=== PATIENT | female | born 1980 | race Caucasian/White ===

== ENCOUNTER 2019-05-25 10:57 | Outpatient (CLI) | payer OTHER, SELFPAY ==
[2019-05-28 01:25] LABS: CA-125 15 U/mL (<35)
== END 2019-05-25 10:58 | disposition home or self-care (01) ==
PROVIDERS: PCP Nurse Practitioner Family
DX: E66.9 Obesity, unspecified (principal)
CPT/HCPCS: 36415; 86304

== ENCOUNTER 2019-11-04 08:52 | Outpatient (CLI) | payer OTHER, SELFPAY ==
[2019-11-04 22:54] LABS: SARS-CoV-2 RNA PCR Negative
== END 2019-11-04 08:53 | disposition home or self-care (01) ==
PROVIDERS: PCP Family Medicine; Visit Provider Family Medicine
DX: Z20.828 Contact with and (suspected) exposure to other viral communicable diseases (principal)
CPT/HCPCS: 87635; C9803; U0003

== ENCOUNTER 2020-08-15 12:56 | Outpatient (CLI) | payer OTHER, SELFPAY ==
--- NOTE | ~2020-08-15 | CT_ITS ---
EXAMINATION: CT sinus wo con DATE: 08/15/2020 13:17 INDICATION: Right maxillary pain/pressure TECHNIQUE: Computed tomography (CT) of the paranasal sinuses was performed without contrast. Iterativ e reconstruction technique was employed. Exam dose: 232.36 mGy-cm total exam DLP. COMPARISON: None FINDINGS: There is prominent rightward deviation of the nasal septum. Bilateral middle nasal turbinate intralamellar cell. There is soft tissue opacification of the right maxillary ostium and infundibulum. The left ostiomeat al unit is patent. Minimal soft tissue thickening of the right frontal sinus. Left frontal sinus is patent. There is prominent soft tissue thickening of the right maxillary sinus. There is moderate mucoperiost eal thickening of the left maxillary sinus. There is soft tissue thickening of the ethmoid air cells, primarily on the right. Approximately 6 x 2 mm mucus retention cyst or polyp in the posterolateral left sphenoid sinus. The s phenoid sinuses are otherwise clear. Mastoid air cells are normally developed and aerated bilaterally. Middle and inner ear apparatus are normal bilaterally. IMPRESSION: Prominent rightward deviation of nasal septum Bilateral intralamellar cell of middle nasal turbinate Soft tissue opacification of right maxillary ostium and right infundibulum Minimal right, moderate right greater than left ethmoid and maxillary maxillary soft tissue thickenin g Focal 6 x 12 mm posterolateral left sphenoid opacity Reviewed, dictated and finalized at [facility]. Reviewed, dictated and finalized at location A. IMPRESSION: Prominent rightward deviation of nasal septum Bilateral intralamellar cell of middle nasal turbinate Soft tissue opacification of right maxillary ostium and right infundibulum Minimal right, moderate right greater than left ethmoid and maxillary maxillary soft tissue thickening Focal 6 x 12 mm posterolateral left sphenoid opacity
== END 2020-08-15 12:57 | disposition home or self-care (01) ==
LOC: CHSIMG 12:57
PROVIDERS: PCP Nurse Practitioner Family; Visit Provider Family Medicine
DX: J32.9 Chronic sinusitis, unspecified (principal)
CPT/HCPCS: 70486

== ENCOUNTER 2020-11-11 02:26 | Day surgery (SDC) | payer OTHER, SELFPAY ==
[2020-11-07 15:07] VITALS: BMI 45.6
--- NOTE | 2020-11-09 13:58 | PM.IMHP ---
H&P: HPI History of Present Illness Date/Time: 11/09/20 13:58 Chief Complaint: see diagnoses patient presents for planned surgical procedures no change in symptoms no change in medical history. Review of Systems Constitutional: Constitutional: Denies fatigue, Denies fever(s) and Denies lethargy Eyes: Eyes: Denies blurry vision and Denies change in vision ENT: Reports as per HPI Cardiovascular: Cardiovascular: Denies chest pain Respiratory: Respiratory: Denies cough Endocrine: Endocrine: Denies fatigue Hematologic/Lymphatic: Hematologic/Lymphatic: Denies easy bleeding, Denies easy bruising and Denies lymphadenopathy Allergic/Immunologic: Allergic/Immunologic: Denies seasonal rhinorrhea [facility] Past Medical History Medical History Asthma (07/01/15) Cough Depression Diarrhea CONOR (generalized anxiety disorder) GERD (gastroesophageal reflux disease) (07/01/15) Kidney calculi Maxillary sinusitis, acute Migraine Nasal congestion Nausea Tobacco dependence Surgical History Surgical History History of cholecystectomy (~12/2016) Family History Family History Father Depression Grandparent Asthma Lung cancer Grandparent Carcinoma of colon Heart disease Social History Social History Years smoked: 20 Smoking status: Current every day smoker Tobacco type: cigars Second hand tobacco smoke exposure: No Alcohol intake: current Drinks per week: 1 Alcohol use details: social Substance use: never Substance use type: does not use Living arrangements: alone 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 Gender identity (if verbalized by the patient): Female Spiritual care concerns: No Meds Home Medications and Allergies Home Medications Medication Instructions Recorded Confirmed Type norgestimate-ethinyl estradiol 1 tablet PO DAILY 01/31/19 11/07/20 History [Sprginnaec (28)] aripiprazole 5 mg tablet 7.5 mg PO DAILY 04/08/19 11/07/20 History venlafaxine 75 mg capsule,extended 225 mg PO DAILY cap 07/17/19 11/07/20 History release 24 hr zafirlukast 20 mg tablet 20 mg PO Q12H 08/18/19 11/07/20 History trazodone 100 mg tablet See Rx Instructions .ROUTE 01/19/20 11/07/20 Rx .COMPLEX #30 tablet Allergies Allergy/AdvReac Type Severity Reaction Status Date / Time divalproex sodium Allergy Intermediate Hives Verified 11/07/20 14:50 [From Depakote] nickel Allergy Intermediate Hives Verified 11/07/20 14:50 phenytoin [From Dilantin] Allergy Intermediate Hives Verified 11/07/20 14:50 tetrakis copper Allergy Intermediate Hives Verified 11/07/20 14:50 tetrafluoroborate Exam Const: General: cooperative, healthy appearing, comfortable, well developed and alert HENMT: Head: normal to inspection, normocephalic and atraumatic Ears: hearing grossly normal bilaterally, external ears normal, TM's normal bilaterally and EAC's normal General nose exam: Normal external nose present, Normal nares present, mucous membranes and turbinates abnormal, abnormal septum and Other nasal findings present ( Inferior turbinate hypertrophy septal deviation) Face and sinus: normal facial exam Mouth: Yes Normal oral and palatal mucosa present, Yes lip normal, Yes tongue normal, Yes oropharynx normal and Yes moist mucous membranes Teeth and gingiva: dentition normal and gingiva normal Throat: posterior oropharynx normal, tonsils normal and uvula midline Eyes: General: appearance normal, both eyes and all related structures Periorbital: periorbital findings normal Eyelids: eyelids normal Conjunctivae: conjunctivae normal Sclera: sclerae normal Neck: Neck: normal visual inspection, full ROM and no lymphadenopathy Thyroid: thyroid normal Lymphatic: no l
[2020-11-11] VITALS (9 sets, daily range): BP systolic 132–158; BP diastolic 78–106; PULSE 78–95; RESP 10–20; TEMP 36–36.4; O2SAT 97–100
[2020-11-11] MEDS: ACETAMINOPHEN 500 MG TABLET 1000 MG PO (07:04)
--- NOTE | 2020-11-11 07:09 | WPDHPUPDATE1 ---
History and Physical Update Update Date/Time: 11/11/20 07:09 History and Physical has been reviewed, including an updated exam of the patient. There are NO changes in the patient's condition. Risks, benefits, and alternatives have been discussed and questions answered. Patient agrees to proceed with procedure.
[2020-11-11] MEDS: LACTATED RINGERS 1,000 ML 30 ML IV CONT ×2 (07:39→10:51)
--- NOTE | 2020-11-11 07:50 | WPDANESEPPF ---
Anes - Initial Pre Proc Eval Procedure: Operation Date: 11/11/20 08:45 Proposed Procedures p Image Guided Bilateral Inferior Turbinectomy, Resection Valencia Bullosa, Right Frontal Sinusotomy, Right Total Ethmoidectomy, Left Antrostomy, Left Anterior Ethmoidectomy, Image Guided Left Sphenoidotomy - Andriy Sutton MD s Septoplasty - Andriy Sutton MD Date/Time: 11/11/20 07:50 Surgeon: Andriy Sutton MD Pre Op Diagnosis: chronic sinusitis Patient Data Age: 39 Gender: F Height: 1.7 m Weight: 131.7 kg Last Vital Signs Temp 36.4 C 11/11/20 06:41 Pulse 94 11/11/20 06:41 Resp 16 11/11/20 06:41 BP 132/78 11/11/20 06:41 Pulse Ox 100 11/11/20 06:41 Allergies Allergy/AdvReac Type Severity Reaction Status Date / Time divalproex sodium Allergy Intermediate Hives Verified 11/07/20 14:50 [From Depakote] nickel Allergy Intermediate Hives Verified 11/07/20 14:50 phenytoin [From Dilantin] Allergy Intermediate Hives Verified 11/07/20 14:50 tetrakis copper Allergy Intermediate Hives Verified 11/07/20 14:50 tetrafluoroborate Home Medications Medication Instructions Recorded Confirmed Type norgestimate-ethinyl estradiol 1 tablet PO DAILY 01/31/19 11/11/20 History [Sprintec (28)] aripiprazole 5 mg tablet 7.5 mg PO DAILY 04/08/19 11/11/20 History venlafaxine 75 mg capsule,extended 225 mg PO DAILY cap 07/17/19 11/11/20 History release 24 hr zafirlukast 20 mg tablet 20 mg PO Q12H 08/18/19 11/11/20 History trazodone 100 mg tablet See Rx Instructions .ROUTE 01/19/20 11/11/20 Rx .COMPLEX #30 tablet fluticasone propionate 1 spray INTRANASAL DAILY 11/11/20 11/11/20 History Patient hx anesthesia problems: none Family hx anesthesia problems: none PMFSH Past Medical History Medical History Asthma (07/01/15) Cough Depression Diarrhea CONOR (generalized anxiety disorder) GERD (gastroesophageal reflux disease) (07/01/15) Kidney calculi Maxillary sinusitis, acute Migraine Nasal congestion Nausea Tobacco dependence Surgical History Surgical History History of cholecystectomy (~12/2016) Family History Family History Father Depression Grandparent Asthma Lung cancer Grandparent Carcinoma of colon Heart disease Social History Social History Years smoked: 20 Smoking status: Current every day smoker Tobacco type: cigars Second hand tobacco smoke exposure: No Alcohol intake: current Drinks per week: 1 Alcohol use details: social Substance use: never Substance use type: does not use Living arrangements: alone 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 Questions were solicited and answers provided to the satisfaction of the patient/family/POA.
[2020-11-11] MEDS: ceFAZolin 3 GM/D5W 100 ML 100 ML IVPB (08:30)
[2020-11-11] MEDS: OXYMETAZOLINE HCL 0.05% NAS 15 ML BTL (*BKC) 1 SPRAY NASAL (09:08)
[2020-11-11] MEDS: fentaNYL CITRATE INJ (*CRX) 100 MCG/2 ML VIAL 25 MCG IV PUSH ×4 (10:56→11:10)
--- NOTE | 2020-11-11 11:20 | W.PM.PROC2 ---
Procedure Note - Detailed Date of Procedure 11/11/20 Pre-op Diagnosis chronic sinusitis, nasal obstruction, postnasal drip, nasal obstruction Ann Thatch, septal deviation, inferior turbinate hypertrophy, guy bullosa Post-op Diagnosis same Procedure Performed image guided bilateral maxillary antrostomy left-sided image guided anterior ethmoidectomy left-sided image guided sphenoidotomy right-sided image guided total ethmoidectomy right-sided image guided frontal sinusotomy left-sided resection of guy bullosa bilateral inferior turbinates submucosal resection with outfracture endoscopic assisted septoplasty Surgeon Andriy Sutton MD Civil Project Engineer none Anesthesia general Indications see above Findings septal deviation inferior turbinate hypertrophy minimal polypoid tissue in the affected sinuses Description of Procedure the patient was correctly identified and consent was verified in the preoperative holding area. The patient was then brought to the operating room and a time-out was performed. General anesthesia was induced and endotracheal tube was secured the patient's airway and taped to the left lower lip. Afrin-soaked pledgets were placed allowed to sit for 5 minutes in the bilateral nasal passages. Image guidance was initiated. The patient was prepped and draped for the aforementioned procedure. A 2nd time-out was performed. The Afrin-soaked pledgets removed. Local anesthetic with lidocaine excuse me lidocaine with epinephrine was injected into the head of the left middle turbinate the guy bullosa was resected with straight through cut micro debrider. Hemostasis was adequate. Double ball tip probe was placed deep to the left uncinate process and this was fractured anteriorly left-sided maxillary antrostomy was performed the using a combination of backbiter and straight through cut. Kerrison was utilized to perform the left anterior ethmoidectomy as well as with micro debrider. Sphenoid was performed transnasally not trans ethmoid. Image guidance confirmed the location the inferior 3rd of the superior turbinate on the left was resected sphenoid os located widened with a Kerrison 0 as well as 7 degree placed to examine the left sphenoid sinus given that disease was noted or least the soft tissue density lesion was noted on CT. This appeared to be scant mucus. No lesion was noted. 10 cc 1% lidocaine with 1 100,000 parts epinephrine was injected deep to the sub mucoperichondrial and sub mucoid off ostial plane of the septum. [place] type incision was made on the left. Bilateral mucoperichondrial flaps were elevated. Of note the right septal spur had a perforation following elevation. The deviated portions were made using a combination removed using a combination of Rangel forceps Dash Al forceps and osteotome. The septum was very straight following septoplasty. Right-sided sinus surgery resumed. Of note there was no guy bullosa on the right middle turbinate. Backbiter as well as double ball tip probe straight through cutter utilized to perform the right-sided maxillary antrostomy. Kerrison as well as micro debrider with image guidance for utilized to perform the right-sided total ethmoidectomy. Skull base and orbit were cleaned of partitions then located. At this point a 70 degree scope and curved suctions and curved frontal sinus instruments were utilized to perform the right-sided frontal sinusotomy. The frontal sinus was located with image guidance and opened with a combination of instruments. It was will opened widely. The bilateral inferior turbinates were then reduced. A 2 mm inferior turbinate blade was utilized to resect submucosally. They were then outfractured using a [place] elevator. Tightening based packing was placed in the bilateral middle meati eye. Of note the bilateral heads of the inferior the middle turbinates were trimmed to allow easy access into the frontal outflow tracts and middle meati I. [facility] [place]
[2020-11-11] MEDS: oxyCODONE HCL (*CRX) 5 MG TAB IR PO (12:35)
== END 2020-11-11 12:40 | disposition home or self-care (01) ==
PROVIDERS: PCP Nurse Practitioner Family; Visit Provider Otolaryngology
PROC: (CPT 31256; principal; 2020-11-11 08:45)
PROC: (CPT 30520; 2020-11-11 08:45)
DX: J34.89 Other specified disorders of nose and nasal sinuses (principal); J34.2 Deviated nasal septum; R09.82 Postnasal drip; J32.9 Chronic sinusitis, unspecified; R51.9 Headache, unspecified; R44.8 Other symptoms and signs involving general sensations and perceptions; R09.81 Nasal congestion; J45.909 Unspecified asthma, uncomplicated; F32.9 Major depressive disorder, single episode, unspecified; F41.1 Generalized anxiety disorder; F17.210 Nicotine dependence, cigarettes, uncomplicated; E66.01 Morbid (severe) obesity due to excess calories; Z68.42 Body mass index [BMI] 45.0-49.9, adult; J33.8 Other polyp of sinus
CPT/HCPCS: 31256; 61782; 30520; 30140; 31240; 31288; 31276; A9270; J0690; J1100; J2250; J2405; J2704; J3010; J7120

== ENCOUNTER 2020-12-12 16:50 | Outpatient (NON) | payer OTHER, SELFPAY | END 2020-12-12 16:51 | disposition home or self-care (01) | LOC: CHSLAB 16:51 | PROVIDERS: Visit Provider Nurse Practitioner Family | DX: R30.0 Dysuria (principal) | CPT/HCPCS: 87077; 87086; 87088; 87186 ==

== ENCOUNTER 2021-01-31 07:34 | Outpatient (CLI) | payer OTHER, SELFPAY ==
--- NOTE | ~2021-01-31 | US_ITS ---
EXAMINATION: US soft tissue abdomen INDICATION: Unspecified abdominal hernia without obstruction TECHNIQUE: Targeted high-resolution ultrasound is performed in the area of clinical concern. COMPARISON: CT, 01/31/2019 FINDINGS: There is an epigastric ventral hernia with an approximately 4.4 cm neck containing fat in t he area of clinical concern. Bowel protrudes into the hernia defect with Valsalva. No additional sono graphically detected abnormality is identified. IMPRESSION: 1. Fat-containing epigastric ventral hernia with bowel entering the hernia during Valsalva maneuver. Reviewed, dictated and finalized at location [facility]. IMPRESSION: 1. Fat-containing epigastric ventral hernia with bowel entering the hernia duri ng Valsalva maneuver.
--- NOTE | ~2021-01-31 | US_ITS ---
EXAMINATION: US renal BI DATE: 01/31/2021 08:02 INDICATION: Unspecified abdominal pain TECHNIQUE: Multiple grayscale and Doppler ultrasound images of the kidneys were obtained. COMPARISON: CT, 01/31/2019 FINDINGS: The examination is limited by the patient's body habitus. The right kidney measures 9.3 x 5 .6 x 5.3 cm. The left kidney measures 10.5 x 4.9 x 4.3 cm. There are multiple peripelvic cysts of the left kidney. The kidneys demonstrate normal parenchymal echogenicity. There is no hydronephrosis. Th e bladder is not visualized due to recent voiding. IMPRESSION: 1. Normal kidneys without hydronephrosis. Reviewed, dictated and finalized at location B.
== END 2021-01-31 07:35 | disposition home or self-care (01) ==
LOC: CHSIMG 07:34
PROVIDERS: PCP Nurse Practitioner Family; Visit Provider Nurse Practitioner Family
DX: R10.9 Unspecified abdominal pain (principal); K46.9 Unspecified abdominal hernia without obstruction or gangrene
CPT/HCPCS: 76705; 76775

== ENCOUNTER 2021-02-22 18:09 | Emergency (ER) | payer OTHER, SELFPAY ==
--- NOTE | ~2021-02-22 | XR_ITS ---
XR knee LT 3V 02/22/2021 19:27 INDICATION: Left knee pain after fall downstairs PROCEDURE: 3 views left knee COMPARISON: No prior studies for comparison. FINDINGS: Fracture, dislocation or subluxation is not identified. No significant joint effusion. The soft tissues appear within normal limits. No foreign bodies are identified. IMPRESSION: 1: NO ACUTE BONE OR JOINT ABNORMALITY IDENTIFIED. Reviewed, dictated and finalized at location A. RUPTCY PARALEGAL
[2021-02-22 18:42] VITALS: BP 157/81; PULSE 103; RESP 16; TEMP 37.1; O2SAT 97
--- NOTE | 2021-02-22 18:43 | ED.LOWEXIN ---
HPI - Extremity Injury (Lower) General Chief Complaint: Extremity Injury, Lower Stated Complaint: Lt knee injury Time Seen by Provider: 02/22/21 18:43 Source: patient Mode of arrival: ambulatory Limitations: no limitations History of Present Illness HPI Narrative: 40-year-old woman comes in today complaining of left knee pain, right ankle pain, and some mild back pain after she fell down some stairs just prior to admission. Her main complaint is pain posterior to and lateral to her left knee. She has had some limited weight-bearing. She denies any numbness or tingling. She states the pain in her back and ankle are mild and she is not worried about them. MD complaint: knee injury and leg injury Injury: Left: knee Type of Injury: blunt (Fall) Place: home Severity: moderate Relieving factors: rest Exacerbating factors: weight bearing, movement and palpation Context: fall Associated symptoms: swelling and able to partially bear weight Other symptoms: none Related Data Home Medications Medication Instructions Recorded Confirmed norgestimate-ethinyl estradiol 1 tablet PO DAILY 01/31/19 02/22/21 [Sprintec (28)] venlafaxine 75 mg capsule,extended 225 mg PO DAILY cap 07/17/19 02/22/21 release 24 hr zafirlukast 20 mg tablet 20 mg PO Q12H 08/18/19 02/13/21 fluticasone propionate 1 spray INTRANASAL DAILY 11/11/20 02/22/21 aripiprazole 15 mg PO DAILY 02/22/21 02/22/21 Allergies Allergy/AdvReac Type Severity Reaction Status Date / Time divalproex sodium Allergy Intermediate Hives Verified 02/22/21 18:37 [From Depakote] nickel Allergy Intermediate Hives Verified 02/22/21 18:37 phenytoin [From Dilantin] Allergy Intermediate Hives Verified 02/22/21 18:37 tetrakis copper Allergy Intermediate Hives Verified 02/22/21 18:37 tetrafluoroborate Review of Systems Review of Systems: All systems reviewed & are unremarkable except as noted in HPI and below Cardiovascular: Cardiovascular: Denies chest pain and Denies radiating jaw, neck or arm pain Respiratory: Respiratory: Denies cough and Denies dyspnea Gastrointestinal: Gastrointestinal: Denies nausea and Denies vomiting Musculoskeletal: Musculoskeletal: Reports as per HPI, Reports back pain, Reports arthralgias and Reports joint swelling Integumentary/Breasts: Skin/Breast: Denies pruritus and Denies rash Neurologic: Denies vertigo, Denies dizziness and Denies syncope Hematologic/Lymphatic: Hematologic/Lymphatic: Denies easy bleeding and Denies easy bruising PMFSH Past Medical History Medical History Asthma (07/01/15) Cough Depression Diarrhea CONOR (generalized anxiety disorder) GERD (gastroesophageal reflux disease) (07/01/15) Kidney calculi Maxillary sinusitis, acute Migraine Nasal congestion Nausea Tobacco dependence Surgical History Surgical History H/O sinus surgery History of cholecystectomy (~12/2016) [place] teeth extracted Family History Family History Father Depression Grandparent Asthma Lung cancer Grandparent Carcinoma of colon Heart disease Social History Social History Years smoked: 20 Smoking status: Current every day smoker Tobacco type: cigars Second hand tobacco smoke exposure: No Alcohol intake: current Drinks per week: 1 Alcohol use details: social Substance use: never Substance use type: does not use 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 Skin: General skin exam: normal color, no jaundice and no pallor Rashes
[2021-02-22] MEDS: HYDROcodone/acetaminophen (*CRX) 5-325 MG TABLET 1 TAB PO (18:55)
[2021-02-22 20:22] VITALS: BP 160/85; PULSE 91; RESP 17; O2SAT 94
== END 2021-02-22 20:23 | disposition home or self-care (01) ==
PROVIDERS: Emergency Provider Emergency Medicine; PCP Nurse Practitioner Family
DX: S83.92XA Sprain of unspecified site of left knee, initial encounter (principal); S80.12XA Contusion of left lower leg, initial encounter; W10.9XXA Fall (on) (from) unspecified stairs and steps, initial encounter
CPT/HCPCS: 73562; 99283; A9270

== ENCOUNTER 2021-02-28 07:39 | Outpatient (RCR) | payer OTHER, SELFPAY ==
--- NOTE | 2021-02-28 08:13 | PTOPEVAL ---
Thank you for referring Leticia Das to [facility].? The patient is scheduled to be seen for therapy? ____x/week for ___ weeks. Please review, sign, date and return this plan of care DEANGELO. I agree with and certify that the following plan of care is medically necessary. Referring Physician Date Admitting Provider: Attending Provider: Caitlin Mcclain NP Referring Provider: *PT Outpatient Evaluation Start: 02/28/21 07:07 Freq: Status: Active Protocol: Document 02/28/21 07:07 ACR (Rec: 02/28/21 08:12 ACR [id number]) Therapy Assessment Status Assessment Status Assessment Status Evaluation Outpatient Past Medical History Neurological History Hx Migraine Yes Hx Seizures Yes: 1997 ONE SEIZURE Cardiovascular History Hx Cardiac Disorders No Significant History Respiratory History Hx Asthma Yes Hx Bronchitis Yes Hx Pneumonia Yes Gastrointestinal History Hx Cholecystectomy Yes: GALLSTONES Hx Gastroesophageal Reflux Disease Yes Hx Pancreatitis Yes Genitourinary History Hx Kidney Stones Yes Musculoskeletal History Hx Musculoskeletal Disorders No Significant History Hematological History Hx Hematological Disorders No Significant History Endocrine History Hx Endocrine Disorders No Significant History HEENT History Hx Sinus Problems Yes Integumentary History Hx Other Skin Disorders Yes: rashes Reproductive History Hx Hormone Therapy Yes Hx Other Reproductive Disorders Yes: CARLOS SYNDROME Psychosocial History Hx Anxiety Yes Hx Depression Yes Pain History History of Any Previous or Ongoing No Significant History Instance of Pain Anesthesia History Hx Anesthesia Reactions No Significant History Evaluation Information Problem Diagnosis L knee sprain Onset 02/22/21 Subjective Information Patient reports that she was Query Text:As Reported By Patient/ going down the steps and Family twisted her ankle then fell down the stairs and twisted the knee. Patient reports that she went to the ED and got an X-ray showing no fractures and was told she has a sprained R ankle and sprained L knee. The patient reports she has been on crutches since she got hurt. Patient states that getting up from a seated position, walkin
--- NOTE | 2021-03-22 07:10 | PTOPEVAL ---
Thank you for referring Leticia Das to [facility] [place].? The patient is scheduled to be seen for therapy? ____x/week for ___ weeks. Please review, sign, date and return this plan of care DEANGELO. I agree with and certify that the following plan of care is medically necessary. Referring Physician Date Admitting Provider: Attending Provider: Caitlin Mcclain NP Referring Provider: SHEREEN Outpatient Evaluation Start: 02/28/21 07:07 Freq: Status: Active Protocol: Document 03/17/21 11:00 [facility] (Rec: 03/22/21 07:09 [facility] [id number]) Therapy Assessment Status Assessment Status Assessment Status Discharge Outpatient Past Medical History Neurological History Hx Migraine Yes Hx Seizures Yes: 1997 ONE SEIZURE Cardiovascular History Hx Cardiac Disorders No Significant History Respiratory History Hx Asthma Yes Hx Bronchitis Yes Hx Pneumonia Yes Gastrointestinal History Hx Cholecystectomy Yes: GALLSTONES Hx Gastroesophageal Reflux Disease Yes Hx Pancreatitis Yes Genitourinary History Hx Kidney Stones Yes Musculoskeletal History Hx Musculoskeletal Disorders No Significant History Hematological History Hx Hematological Disorders No Significant History Endocrine History Hx Endocrine Disorders No Significant History HEENT History Hx Sinus Problems Yes Integumentary History Hx Other Skin Disorders Yes: rashes Reproductive History Hx Hormone Therapy Yes Hx Other Reproductive Disorders Yes: CARLOS SYNDROME Psychosocial History Hx Anxiety Yes Hx Depression Yes Pain History History of Any Previous or Ongoing No Significant History Instance of Pain Anesthesia History Hx Anesthesia Reactions No Significant History Evaluation Information Problem Diagnosis L knee sprain Onset 02/22/21 Additional Evaluation Detail LEFS = 0% functional deficits Subjective Information patient reports she feels Query Text:As Reported By Patient/ Great this date. she reports Family she has no pain in the L knee. she reports she would like to end therapy is she is feeling back to normal. she reports she returns to the MD next week but is back to full work performance. Pain Assessment Timing of Pain Assessment Timing of Pain Assessment Assessment Self Report Self Report Pain Level 0 Pain Score Pain Score 0: Self Report Lower Extremity Range of Motion Knee
== END 2021-03-17 09:12 | disposition home or self-care (01) ==
LOC: CHSPT 07:39
PROVIDERS: PCP Nurse Practitioner Family; Visit Provider Nurse Practitioner Family
DX: S83.92XA Sprain of unspecified site of left knee, initial encounter (principal)
CPT/HCPCS: 97016; 97110; 97161; 97530

== ENCOUNTER 2021-04-06 10:17 | Outpatient (CLI) | payer OTHER, SELFPAY ==
[2021-04-06 11:25] LABS: SARS-CoV-2 Ag Negative (Negative)
== END 2021-04-06 10:18 | disposition home or self-care (01) ==
LOC: CHSLAB 10:21
PROVIDERS: PCP Nurse Practitioner Family; Visit Provider Nurse Practitioner Family
DX: Z20.822 Contact with and (suspected) exposure to COVID-19 (principal)
CPT/HCPCS: 87426; C9803

== ENCOUNTER 2021-07-16 11:21 | Emergency (ER) | payer OTHER, SELFPAY ==
--- NOTE | 2021-07-16 11:49 | ED.GENADULT ---
HPI - General Adult General Stated complaint: pain in mouth post skin graft procedure Source: patient Mode of arrival: ambulatory Limitations: no limitations History of Present Illness HPI narrative: Leticia presented to the ED with dental pain. She had a procedure done 6 days ago where some of the roof of her mouth was moved to her gum. She has had persistent pain on the roof of her mouth despite NSAIDs. Her dentist started her on an antibiotic. No fevers, chills, N/V, dysphagia, SOB or chest pain. Related Data Home Medications Medication Instructions Recorded Confirmed norgestimate-ethinyl estradiol 1 tablet PO DAILY 01/31/19 03/02/21 [Sprintec (28)] fluticasone propionate 1 spray INTRANASAL DAILY 11/11/20 03/02/21 aripiprazole 2 mg tablet 2 mg PO DAILY 03/02/21 03/02/21 aripiprazole 5 mg tablet 5 mg PO DAILY 03/02/21 03/02/21 venlafaxine 225 mg tablet,extended 225 mg PO QAM 03/02/21 03/02/21 release 24 hr Allergies Allergy/AdvReac Type Severity Reaction Status Date / Time divalproex sodium Allergy Intermediate Hives Verified 03/02/21 15:25 [From Depakote] nickel Allergy Intermediate Hives Verified 03/02/21 15:25 phenytoin [From Dilantin] Allergy Intermediate Hives Verified 03/02/21 15:25 tetrakis copper Allergy Intermediate Hives Verified 03/02/21 15:25 tetrafluoroborate Review of Systems Constitutional: Constitutional: Reports no additional constitutional complaints Eyes: Eyes: Reports no additional eye complaints ENT: Reports system reviewed and no additional complaints, except as documented Cardiovascular: Cardiovascular: Reports no additional cardiovascular complaints Respiratory: Respiratory: Reports no additional respiratory complaints Gastrointestinal: Gastrointestinal: Reports no additional gastrointestinal complaints Genitourinary: Genitourinary: Reports no additional female genitourinary complaints Musculoskeletal: Musculoskeletal: Reports no additional musculoskeletal complaints Integumentary/Breasts: Skin/Breast: Reports system reviewed and no additional complaints, except as docu Neurologic: Reports system reviewed and no additional complaints, except as documented Psychiatric: Psychiatric: Reports no additional psychiatric complaints Endocrine: Endocrine: Reports no additional endocrine complaints Hematologic/Lymphatic: Hematologic/Lymphatic: Reports no additional hematologic/lymphatic complaints Allergic/Immunologic: Allergic/Immunologic: Reports no additional allergic/immunologic complaints PMFSH Past Medical History Medical History Asthma (07/01/15) Cough Depression Diarrhea CONOR (generalized anxiety disorder) GERD (gastroesophageal reflux disease) (07/01/15) Kidney calculi Maxillary sinusitis, acute Migraine Nasal congestion Nausea Tobacco dependence Surgical History Surgical History H/O sinus surgery History of cholecystectomy (~12/2016) [place] teeth extracted Family History Family History Father Depression Grandparent Asthma Lung cancer Grandparent Carcinoma of colon Heart disease Social History Social History Years smoked: 20 Smoking status: Current every day smoker Tobacco type: cigars Second hand tobacco smoke exposure: No Alcohol intake: current Drinks per week: 1 Alcohol use details: social Substance use: never Substance use type: does not use 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
[2021-07-16] MEDS: HYDROcodone/acetaminophen (*CRX) 5-325 MG TABLET 1 TAB PO (11:57)
[2021-07-16 11:58] VITALS: BP 126/114; PULSE 92; RESP 20; TEMP 36.6; O2SAT 95
[2021-07-16 12:05] VITALS: PULSE 88; RESP 20; O2SAT 96
== END 2021-07-16 12:10 | disposition home or self-care (01) ==
PROVIDERS: Emergency Provider Family Medicine; PCP Nurse Practitioner Family
DX: K08.89 Other specified disorders of teeth and supporting structures (principal)
CPT/HCPCS: 99283; A9270

== ENCOUNTER 2021-11-15 10:48 | Outpatient (CLI) | payer OTHER, SELFPAY ==
--- NOTE | ~2021-11-15 | XR_ITS ---
EXAMINATION: XR abdomen/kub 1V INDICATION: Right flank pain TECHNIQUE: Supine views of the abdomen were obtained on 2 radiographs. COMPARISON: None FINDINGS: There appears to be a 3 mm stone of the right kidney. No stones are identified along the ex pected courses of the ureters or in the urinary bladder. Surgical clips in the right upper quadrant a re likely from prior cholecystectomy. The bowel gas pattern is normal. A surgical clip is present in the left pelvis. IMPRESSION: 1. Possible 3 mm right kidney stone. Reviewed, dictated and finalized at location A.
[2021-11-15 13:49] LABS: Appearance Urine Clear (Clear); Bilirubin Urine Negative (Negative); Color Urine Light Yellow (Yellow); Glucose Urine UA Negative (Negative); Ketones Urine Negative (Negative); Leukocyte Esterase Ur Trace LEU/UL (Negative); Nitrate Urine Negative (Negative); Protein Urine Negative (Negative); Specific Grav Ur >= 1.030 (1.010-1.020); Urobilinogen Urine 0.2 mg/dL (0.2-1.0)
[2021-11-15 13:56] LABS: Add Urine Microscopic? YES; Blood Urine Trace-Intact (Negative); RBC Urine 0-2 /hpf (0-2)
[2021-11-15 13:57] LABS: Bacteria Urine 2+ /hpf; Squamous Epithelial Cell Urine Moderate /hpf (Few); WBC Urine 16-20 /hpf (0-3)
== END 2021-11-15 10:49 | disposition home or self-care (01) ==
PROVIDERS: PCP Nurse Practitioner Family; Visit Provider Nurse Practitioner Family
DX: R39.9 Unspecified symptoms and signs involving the genitourinary system (principal); R10.9 Unspecified abdominal pain
CPT/HCPCS: 74018; 81001; 87077; 87086; 87088; 87186

== ENCOUNTER 2022-05-23 16:40 | Outpatient (CLI) | payer OTHER, SELFPAY ==
[2022-05-29 19:26] LABS: Lactoferrin, Stool Negative (Negative)
== END 2022-05-23 16:41 | disposition home or self-care (01) ==
LOC: CHSLAB 16:42
PROVIDERS: PCP Nurse Practitioner Family; Visit Provider Nurse Practitioner Family
DX: R19.7 Diarrhea, unspecified (principal)
CPT/HCPCS: 83630; 87045; 87427; 87493

== ENCOUNTER 2022-06-28 10:43 | Outpatient (CLI) | payer OTHER, SELFPAY ==
--- NOTE | ~2022-06-28 | XR_ITS ---
Right Shoulder Technique: AP and scapular Y views were obtained. Clinical History: Pain Findings: No fracture or dislocation is seen. Osseous alignment is anatomic. The glenohumeral and acr omioclavicular joint spaces are preserved. Soft tissues are unremarkable. Impression: Unremarkable right shoulder radiographs. Reviewed, dictated and finalized at [facility]. Impression: Unremarkable right shoulder radiographs.
== END 2022-06-28 10:44 | disposition home or self-care (01) ==
LOC: CHSIMG 10:45
PROVIDERS: PCP Nurse Practitioner Family; Visit Provider Nurse Practitioner Family
DX: S49.91XA Unspecified injury of right shoulder and upper arm, initial encounter (principal)
CPT/HCPCS: 73030

== ENCOUNTER 2022-10-03 10:29 | Outpatient (CLI) | payer SELFPAY | END 2022-10-03 10:30 | disposition home or self-care (01) | LOC: CHSLAB 10:32 | PROVIDERS: PCP Nurse Practitioner Family; Visit Provider Nurse Practitioner Family | DX: Z71.3 Dietary counseling and surveillance (principal) | CPT/HCPCS: 99199 ==

== ENCOUNTER 2022-12-10 16:49 | Outpatient (RCR) | payer OTHER, SELFPAY ==
--- NOTE | 2022-12-10 18:04 | PTOPEVAL1 ---
Assessment and note entered by Kyaw Pérez Evaluation Information Assessment Status Evaluation Diagnosis right shoulder pain Onset 07/14/22 Subjective Information Pt. reports that she was walking with her uncle and he began to fall. She reports that she attempted to lower him to the floor. She states that she felt immediate pain in the right shoulder . She describes pain across the right side of the neck, into the upper trap and into the front and back of the shoulder. She reports reaching overhead and moving the steering wheel will incresae her pain. She reports that she cannot sleep on her right side due to pain. She is using a TENS unit at home. She reports that her pain is eased with Advil and use of a the TENS. She states that she is not sleeping well due to her pain. She reports that she is completing all regular IADL's, just with discomfort. She reports her goal is to decrease her pain. Reported Pain Level Pain Score 5: Self Report Assessment PT Clinical Summary Pt. is a 41 year old female who enters the clinic with right shoulder pain. She presents with indication of right shoulder impingement and cervical nerve root impingement. She currently presents with impaired postural awareness, impaired strength, impaired mobility and pain. Continued skilled PT is indicated in order to improve these areas to improve comfort with IADL's . Plan of Care Interventions Electrical Stimulation,Gait Training,Manual Therapy,Neuro Re-education,Patient/Caregiver Educati,Therapeutic Activities,Therapeutic Exercise,Self-Care/Home Management PT Services Indicated Yes Treatment Frequency and 2x/week x 10 visits Duration These treatments will address the objective and functional deficits as defined above. The patient will be advanced safely and appropriately in order for the patient to progress towards his/her prior level of function. Additional exercises will be introduced and as well as a comprehensive home exercise program upon discharge, if needed, ?to ensure carryover of functional gains achieved in the clinic. This treatment plan has been reviewed and agreement upon by the patient.
--- NOTE | 2023-01-02 08:03 | OPREHPOC ---
Outpatient Therapy Plan of Care This is a Multidisciplinary Plan of Care that may contain components documented by all disciplines (PT, OT, and ST.) PT Problem 1 PT Problem #1 Knowledge Deficit PT Goal 1 Goal Independent with a HEP addressing postural awareness and strength Progress Met PT Problem 2 PT Problem #2 Impaired Range of Motion PT Goal 1 Goal increase right rotation of the c-spine to 80 degrees and right lateral flexion to 45 degrees Target Visit 18 Comment continue PT Problem 3 PT Problem #3 Impaired Strength PT Goal 1 Goal Pt. will present with 5/5 proximal right u.e. strength Target Visit 18 Comment continue PT Problem 4 PT Problem #4 Impaired Functional Mobil PT Goal 1 Goal Pt. will be able to lift 10# overhead with the right u.e. without pain. Target Visit 18 Comment continue
--- NOTE | 2023-01-02 08:04 | PTOPREEVAL ---
Assessment and note entered by JT File, PT Evaluation Information Assessment Status Evaluation Diagnosis right shoulder pain Onset 07/14/22 Subjective Information patient reports she has a follow up with her MD tomorrow to discuss the results of the MRI of her R shoulder. she reportsshe felt a big pop last night, and reports now she has a painful pop in the R shoulder when lowering it from overhead. she reports reaching out to her front hurts. she reports she is able to do all activities, but has pain with activities. she reports even getting up out of a chair hurts, carrying her laptop hurts, and holding a bottle of soda. Reported Pain Level Pain Score 3: Self Report Assessment PT Clinical Summary mrs. smith presents to skilled PT today for re- evaluation. she presents to skilled PT with continued pain in the R shoulder, and increased pain in reaching and lifting functional activities . she presents with full flexion arom of the R shoulder, and adequate strength in the R shoulder, but has pain with manual muscle testing of the R shoulder. given the results of her MRI, she will likely need a cortizone injection to the R shoulder, and return to skilled PT for further strengthening and functional training. she has made progress towards goals, and given to active rom and strength she continues to maintain she would be a good candidate to continue skilled PT. Plan of Care Interventions Electrical Stimulation,Gait Training,Hot Pack/Cold Pack,Manual Therapy,Neuro Re-education,Patient/ Caregiver Educati,Therapeutic Activities, Therapeutic Exercise,Self-Care/Home Management PT Services Indicated Yes Treatment Frequency and continue skilled PT 2x weekly for 8 more visits Duration These treatments will address the objective and functional deficits as defined above. The patient will be advanced safely and appropriately in order for the patient to progress towards his/her prior level of function. Additional exercises will be introduced and as well as a comprehensive home exercise program upon discharge, if needed, ?to ensure carryover of functional gains achieved in the clinic. This treatment plan has been reviewed and agreement upon by the patient.
== END 2023-01-02 23:59 | disposition home or self-care (01) ==
LOC: CHSPT 16:49
PROVIDERS: PCP Nurse Practitioner Family; Visit Provider Nurse Practitioner Family
DX: M25.511 Pain in right shoulder (principal); S46.911D Strain of unspecified muscle, fascia and tendon at shoulder and upper arm level, right arm, subsequent encounter
CPT/HCPCS: 97014; 97110; 97140; 97161; 97542; G0283

== ENCOUNTER 2022-12-15 08:18 | Outpatient (CLI) | payer OTHER, SELFPAY ==
--- NOTE | ~2022-12-15 | MR_ITS ---
MRI of the right shoulder Technique: Axial proton-density fat-sat images, coronal proton density fat-sat and T2 fat-sat images, and sagittal T1-weighted and T2 fat-sat images were acquired. Clinical History: Pain Findings: Exam degraded by motion artifact. There is minimal AC joint degenerative change. Coracoclavicular, coracoacromial, and coracohumeral li gaments are probably intact. Questionable partial or possibly focal full-thickness tearing of the distal, anterior supraspinatus t endon, though evaluation is very limited due to motion artifact. No definite partial or full-thicknes s tear of the infraspinatus tendon identified. Subscapularis tendon is intact. Tendon of long head of the biceps is intact. No definite labral tear identified. Inferior glenohumeral ligament is intact. No significant joint effusion at the glenohumeral joint see n. Probable small amount of fluid in the subacromial/subdeltoid region. No muscle atrophy or edema ev ident. No significant degenerative change of the glenohumeral joint is evident. Impression: Questionable partial-thickness tearing at the anterior, distal supraspinatus tendon insertion, but ev aluation is markedly suboptimal due to significant motion artifact in this region. Consider repeat ex am as indicated. Reviewed, dictated and finalized at location . Impression: Questionable partial-thickness tearing at the anterior, distal supraspinatus te ndon insertion, but evaluation is markedly suboptimal due to significant motion artifact in this region. Consider repeat exam as indicated.
== END 2022-12-15 08:19 | disposition home or self-care (01) ==
LOC: CHSIMG 08:18
PROVIDERS: PCP Nurse Practitioner Family; Visit Provider Nurse Practitioner Family
DX: S46.911A Strain of unspecified muscle, fascia and tendon at shoulder and upper arm level, right arm, initial encounter (principal); M25.511 Pain in right shoulder
CPT/HCPCS: 73221

== ENCOUNTER 2023-01-02 08:37 | Outpatient (CLI) | payer SELFPAY | END 2023-01-02 08:38 | disposition home or self-care (01) | LOC: CHSLAB 08:39 | PROVIDERS: PCP Nurse Practitioner Family; Visit Provider Nurse Practitioner Family | DX: M25.511 Pain in right shoulder (principal) | CPT/HCPCS: 99199 ==

== ENCOUNTER 2023-01-19 09:48 | Outpatient (CLI) | payer OTHER, SELFPAY ==
--- NOTE | ~2023-01-19 | MR_ITS ---
EXAMINATION: MR shoulder RT wo con DATE: 01/19/2023 11:46 INDICATION: pain to rt anterior axial area w/ limited rom/popping . TECHNIQUE: Magnetic resonance imaging (MRI) of the right shoulder was performed without intravenous c ontrast. Sequences included axial PD-weighted FS FSE, coronal oblique PD-weighted FS FSE and T2-weigh monica FS FSE, and sagittal oblique T2-weighted FS FSE and T1-weighted FSE. COMPARISON: MRI right shoulder 12/15/2022. FINDINGS: Coracoacromial arch: Lateral downsloping of the type II acromion. Subacromial space measures 5 mm. Acromial tip enthesopat hy. Rotator cuff: Thinning of the superior cuff with bursal sided fraying. No focal tear detected in the supraspinous, infraspinatus teres minor or subscapularis. Biceps tendon and glenoid labrum: Intact long head of biceps tendon. Intact labrum. Fluid: Moderate subacromial subdeltoid fluid. Mild glenohumeral fluid. Bones/cartilage: Moderate AC joint hypertrophy. Mild glenohumeral narrowing. IMPRESSION: Thinning of the superior rotator cuff with bursal sided fraying, no focal tear detected. Subacromial narrowing with moderate subacromial subdeltoid bursitis. Moderate AC joint and mild glenohumeral joint osteoarthritis. Reviewed, dictated and finalized at location K.
== END 2023-01-19 09:49 | disposition home or self-care (01) ==
LOC: CHSIMG 09:51
PROVIDERS: PCP Nurse Practitioner Family; Visit Provider Nurse Practitioner Family
DX: M75.51 Bursitis of right shoulder (principal); M19.011 Primary osteoarthritis, right shoulder; R93.89 Abnormal findings on diagnostic imaging of other specified body structures
CPT/HCPCS: 73221

== ENCOUNTER 2023-03-14 19:15 | Emergency (ER) | payer OTHER, SELFPAY ==
[2023-03-14 19:15] VITALS: BP 132/88; PULSE 110; RESP 18; TEMP 36.6; O2SAT 95
--- NOTE | 2023-03-14 19:28 | ED.HA ---
HPI - Headache General Chief Complaint: Headache Stated Complaint: migraine Time Seen by Provider: 03/14/23 19:26 Source: patient and family Mode of arrival: ambulatory Limitations: no limitations History of Present Illness HPI Narrative: patient presents with her typical migraine with light sensitivity with occipital pain and throbbing sensation right-sided with some no fever chills no neck pain or neck stiffness with no fever chills no shortness for breath has tried [id number] medication earlier today with moderate relief. Patient also has some nausea with no vomiting. MD elicited complaint: migraine Onset (ago): day(s) Onset description: gradually Location: right and occipital Related Data Home Medications Medication Instructions Recorded Confirmed norgestimate 0.25 mg-ethinyl 1 tablet PO DAILY 01/31/19 02/04/23 estradiol 35 mcg tablet (Sprintec (28)) aripiprazole 2 mg tablet 2 mg PO DAILY 03/02/21 02/04/23 aripiprazole 5 mg tablet 5 mg PO DAILY 03/02/21 02/04/23 venlafaxine 225 mg tablet,extended 225 mg PO QAM 03/02/21 02/04/23 release 24 hr bupropion HCl 150 mg 24 hr tablet, 150 mg PO DAILY 11/15/21 02/04/23 extended release Allergies Allergy/AdvReac Type Severity Reaction Status Date / Time divalproex sodium Allergy Intermediate Hives Verified 02/04/23 08:59 [From Depakote] nickel Allergy Intermediate Hives Verified 02/04/23 08:59 phenytoin [From Dilantin] Allergy Intermediate Hives Verified 02/04/23 08:59 tetrakis copper Allergy Intermediate Hives Verified 02/04/23 08:59 tetrafluoroborate Review of Systems Review of Systems: All systems reviewed & are unremarkable except as noted in HPI and below PMFSH Past Medical History Medical History Asthma (07/01/15) Cough Depression Diarrhea CONOR (generalized anxiety disorder) GERD (gastroesophageal reflux disease) (07/01/15) Impingement of right shoulder Kidney calculi Maxillary sinusitis, acute Migraine Nasal congestion Nausea Tendinitis of right rotator cuff Tobacco dependence Surgical History Surgical History H/O sinus surgery History of cholecystectomy (~12/2016) [place] teeth extracted Family History Family History Father Depression Grandparent Asthma Lung cancer Grandparent Carcinoma of colon Heart disease Unknown Diabetes mellitus Kellogg syndrome Social History Social History Years smoked: 20 Smoking status: Current some day smoker Tobacco type: cigars Second hand tobacco smoke exposure: No Alcohol intake: current Drinks per week: 1 Alcohol use details: social Substance use: never Substance use type: does not use Lack of Transportation: No Lack of Food: Never True Current Housing: I Have Housing Concerned About Future Housing: No Difficulty Paying Gas/Electric Bills: No Difficulty Paying for Meds: No Currently Unemployed: No Education: Associate Degree Difficulty w/ Childcare or Family Care: No Living arrangements: alone Occupation/Education: occupation 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 Gender identity (if verbalized by the patient): Female Spiritual care concerns: No Exam Const: General: healthy appearing Nutritional Appearance: well nourished Orientation/consciousness: patient oriented x3 HENMT: Head: normal to inspection Eyes: Conjunctivae: conjunctivae normal Pupils: Equal, round and reactive pupils present EOM: EOMs intact bilaterally Neck: Neck: normal visual inspection, no lymphadenopathy and no meningeal signs Chest: Chest palpation & inspection: normal inspection of the chest Resp: Effort & Inspection: normal respiratory effort Auscultation: clear to auscultation bilaterally Cardio: Rat
[2023-03-14] MEDS: ONDANSETRON HCL ODT 4 MG TABLET PO (19:57)
[2023-03-14] MEDS: KETOROLAC (*BKC) 60 MG/2 ML VIAL IM (19:57)
== END 2023-03-14 20:17 | disposition home or self-care (01) ==
PROVIDERS: Emergency Provider Emergency Medicine; PCP Nurse Practitioner Family
DX: G43.909 Migraine, unspecified, not intractable, without status migrainosus (principal); F17.210 Nicotine dependence, cigarettes, uncomplicated
CPT/HCPCS: 96372; 99283; A9270; J1885

== ENCOUNTER 2023-07-03 14:46 | Outpatient (CLI) | payer OTHER, SELFPAY ==
--- NOTE | ~2023-07-03 | XR_ITS ---
XR knee RT 3V DATE: 07/03/2023 15:26 INDICATION: Pain TECHNIQUE: AP, lateral, sunrise views COMPARISON: None FINDINGS: There is minimal periarticular spurring of the patella. There is mild to moderate loss of h eight of medial compartment joint space. No fracture or dislocation or joint effusion, radiopaque intra-articular loose body or chondrocalcino sis is evident. No periosteal reaction or bone destruction. IMPRESSION: Mild osteoarthritis Reviewed, dictated and finalized at location B. IMPRESSION: Mild osteoarthritis
== END 2023-07-03 14:47 | disposition home or self-care (01) ==
PROVIDERS: PCP Nurse Practitioner Family; Visit Provider Nurse Practitioner Family
DX: M25.561 Pain in right knee (principal); M17.11 Unilateral primary osteoarthritis, right knee
CPT/HCPCS: 73562

== ENCOUNTER 2023-10-24 07:51 | Outpatient (CLI) | payer OTHER, SELFPAY ==
--- NOTE | ~2023-10-24 | MM_ITS ---
EXAMINATION: MM screening shahla BI w jose HISTORY: Screening TECHNIQUE: Craniocaudal and mediolateral oblique 3-D tomosynthesis images were obtained and synthetic 2-D images were generated. CAD analysis was submitted and interpreted. COMPARISON: No prior studies for comparison. BREAST PARENCHYMAL COMPOSITION: Not Dense: Breast are almost entirely fatty. FINDINGS: There is no evidence of suspicious mass, calcification, or architectural distortion to sugg est malignancy in either breast. There has been no suspicious interval change. IMPRESSION: 1. No mammographic evidence of malignancy. 2. Recommend routine screening mammography in one year. BI-RADS Category 1: Negative Reviewed, dictated and finalized at location B.
== END 2023-10-24 07:52 | disposition home or self-care (01) ==
LOC: CHSIMG 07:53
PROVIDERS: PCP Nurse Practitioner Family; Visit Provider Nurse Practitioner Family
DX: Z12.31 Encounter for screening mammogram for malignant neoplasm of breast (principal)
CPT/HCPCS: 77063; 77067

== ENCOUNTER 2023-12-30 10:07 | Outpatient (CLI) | payer OTHER, SELFPAY ==
--- NOTE | ~2023-12-30 | XR_ITS ---
XR chest 2V Ordering provider: Caitlin Mcclain NP History: 43 years Female with . COUGH X2-3WK,COPD,ASTHMA . Comparison: July 30, 2016 FINDINGS: MEDIASTINUM: The cardiac silhouette is not enlarged. LUNGS: No infiltrates, effusions or pneumothorax. OTHER: No free air under the diaphragm. IMPRESSION: No acute cardiopulmonary pathology. Reviewed, dictated and finalized at location A.
== END 2023-12-30 10:08 | disposition home or self-care (01) ==
PROVIDERS: PCP Nurse Practitioner Family; Visit Provider Nurse Practitioner Family
DX: J45.909 Unspecified asthma, uncomplicated (principal); R05.9 Cough, unspecified
CPT/HCPCS: 71046

== ENCOUNTER 2024-02-20 14:23 | Outpatient (CLI) | payer OTHER, SELFPAY ==
[2024-02-20 15:56] LABS: Toxigenic C. Diff NEGATIVE (NEGATIVE)
== END 2024-02-20 14:24 | disposition home or self-care (01) ==
LOC: CHSLAB 14:25
PROVIDERS: PCP Nurse Practitioner Family; Visit Provider Nurse Practitioner Family
DX: R19.5 Other fecal abnormalities (principal)
CPT/HCPCS: 82653; 87045; 87269; 87427; 87449; 87493

== ENCOUNTER 2024-04-02 15:01 | Outpatient (CLI) | payer OTHER, SELFPAY ==
[2024-04-02 15:18] LABS: Hematocrit 38.5 % (35.0-49.0); Hemoglobin 12.3 g/dL (12.0-15.0); Mean Corpuscular HGB Conc 31.9 g/dL (32-36); Mean Corpuscular Hemoglobin 29.6 pg (27.0-31.0); Mean Corpuscular Volume 92.5 fL (78.0-102.0); Mean Platelet Volume 10.7 fl (9.2-11.8); Platelet Count Result 248 K/mm3 (150-420); Red Blood Count 4.16 M/mm3 (4.20-5.40); Red Cell Distribution Width 13.5 % (11.6-14.4); White Blood Count 7.4 K/mm3 (4.8-10.8)
[2024-04-02 16:25] LABS: Alanine Aminotransferase 24 U/L (14-59); Albumin Level 2.9 g/dL (3.4-5.0); Alkaline Phosphatase 74 U/L (46-116); Anion Gap 7 mmol/L (4-12); Aspartate Amino Transferase 16 U/L (15-37); Bilirubin,Total 0.3 mg/dL (0.00-1.00); Blood Urea Nitrogen 12 mg/dL (7-18); Calcium 8.9 mg/dL (8.5-10.1); Carbon Dioxide 27 mmol/L (21-32); Chloride 106 mmol/L (98-108); Estimated Glomerular Filt Rate > 60; Ferritin 133 ng/mL (8-252); Folic Acid 6.3 ng/mL (8.6->20); Glucose 106 mg/dL (70-99); Iron 41 ug/dL (50-170); Osmolality Calculated 289 mOsm/kg (285-295); Percent Iron Saturation 13 % (12-57); Potassium 3.8 mmol/L (3.5-5.1); Sodium 140 mmol/L (136-145); Total Protein 5.9 g/dL (6.4-8.2); Vitamin B12 293 pg/mL (193-986)
[2024-04-06 16:03] LABS: Immunoglobulin A 157 mg/dL (47-310); TTG IGA AB <1.0 U/mL
== END 2024-04-02 15:02 | disposition home or self-care (01) ==
PROVIDERS: PCP Nurse Practitioner Family; Visit Provider Nurse Practitioner Family
DX: R19.5 Other fecal abnormalities (principal); K86.81 Exocrine pancreatic insufficiency
CPT/HCPCS: 36415; 80053; 82306; 82607; 82728; 82746; 82784; 83516; 83540; 83550; 84446; 84590; 84597; 85027

== ENCOUNTER 2024-04-09 09:36 | Outpatient (CLI) | payer OTHER, SELFPAY ==
--- NOTE | ~2024-04-09 | CT_ITS ---
CLINICAL INDICATION: Constipation and diarrhea COMPARISON: 01/31/2019. TECHNIQUE: Multiple contiguous axial images of the abdomen and pelvis were performed following the ad ministration of with 100 mL Omnipaque-350 intravenous contrast The dose-length product (DLP) was 1652.60 mGy-cm. Automated exposure control and iterative reconstruction technique were employed. FINDINGS/OBSERVATIONS: Visualized lower thorax: The bilateral lung bases are clear. The heart is of normal size, without pericardial effusion. Small hiatal hernia is present. Liver: The liver is decreased in echogenicity and unremarkable in size measuring 17 cm in longitudinal dimen juani. Gallbladder and biliary system: The gallbladder is surgically absent. Pancreas: The pancreas enhances homogeneously without ductal dilatation. Spleen: The spleen enhances homogeneously and is not enlarged measuring 8 cm in longitudinal dimension. Kidneys: The bilateral kidneys enhance symmetrically without hydronephrosis or renal calculi. Adrenal glands: Unremarkable. Gastrointestinal tract: Bowel is not distended and contains a small amount of fecal stasis. Colonic diverticulosis without surrounding inflammatory change. Appendix: The appendix is not definitively visualized. However, no pericecal inflammatory change is identified suggest the presence of acute appendicitis. Vasculature: Unremarkable. No aneurysmal dilatation or significant stenosis. Lymph nodes: No pathologically enlarged or morphologically suspicious lymph nodes within the retroperitoneum or at the root of the mesentery. Pelvic structures: The bladder is only minimally distended, and otherwise unremarkable. The uterus is anteverted and anteflexed, and otherwise unremarkable. A likely dominant follicle within the left ovary, an interval change from prior, and not uncommon in a patient of this age. Body wall and musculoskeletal: Fat-containing subxiphoid hernia, increased in size from prior. No significant degenerative disease within the lower thoracic or lumbosacral spine. IMPRESSION: Fatty infiltration of the liver. A likely dominant follicle within the left ovary, an interval change from prior, and not uncommon in a patient of this age. No significant fecal stasis, as detailed above. Reviewed, dictated and finalized at location A. K PLACER IMPRESSION: Fatty infiltration of the liver. A likely dominant follicle within the left ovary, an interval change from prior , and not uncommon in a patient of this age. No significant fecal stasis, as detailed above.
== END 2024-04-09 09:37 | disposition home or self-care (01) ==
LOC: CHSIMG 09:37
PROVIDERS: PCP Nurse Practitioner Family; Visit Provider Nurse Practitioner
DX: K86.81 Exocrine pancreatic insufficiency (principal); Z15.09 Genetic susceptibility to other malignant neoplasm; K76.0 Fatty (change of) liver, not elsewhere classified
CPT/HCPCS: 74177; Q9967

== ENCOUNTER 2024-04-30 20:25 | Emergency (ER) | payer OTHER, SELFPAY ==
--- NOTE | ~2024-04-30 | CT_ITS ---
EXAMINATION: CT abdomen pelvis w con DATE: 04/30/2024 23:02 INDICATION: RUQ pain, epigastric pain TECHNIQUE: Computed tomography (CT) of the abdomen and pelvis was performed with 100 mL Omnipaque-350 intravenous contrast. Automated exposure control and iterative reconstruction technique were employe d. The dose-length product was 1778.69 mGy-cm. COMPARISON: 04/09/2024. FINDINGS: Lower thorax: Unremarkable Liver: 1.7 cm left lobe hemangioma. Biliary/Gallbladder: Gallbladder is absent. No bile duct dilation. Pancreas: No mass or duct dilation. Spleen: Normal. Adrenals:No mass. Kidneys: No suspicious mass, obstructing stone, or hydronephrosis. GI tract: No small or large bowel dilation. Normal appendix. Diverticulosis without diverticulitis. Mesentery/Peritoneum: No ascites, mass, or free air. Retroperitoneum: No mass. Pelvis: Normal urinary bladder and uterus. 2.4 cm left and 3.2 cm right simple appearing ovarian cyst s. Soft Tissues: Large fat-containing upper abdominal ventral hernia slightly to the right of midline, n ot significant inflammatory change. Bones: No acute osseous finding. IMPRESSION: Upper abdominal fat containing ventral hernia, slightly larger than in the prior study, without infla mmatory changes. Simple appearing bilateral ovarian cysts. Otherwise, no acute abdominopelvic finding detected. Reviewed, dictated and finalized at location K. NT SERVICES COORDINATOR IMPRESSION: Upper abdominal fat containing ventral hernia, slightly larger than in the prio r study, without inflammatory changes. Simple appearing bilateral ovarian cysts. Otherwise, no acute abdominopelvic finding detected.
--- OUTSIDE RECORDS SUMMARY | 2024-04-30 20:27 | XMS_ITS | Clinical Summary ---
Author Organization [facility] [employer] [place] Address [address] [place] [address] Care Team Providers Care Sugar Trucker Name Role Phone Gómez Hampton MD Primary Care Provider [phone] Allergies Active Allergy Reactions Criticality Noted Date Comments Copper Rash Medium 02/19/2018 bleeding Divalproex Rash Low 03/27/2017 Nickel Rash Medium 02/19/2018 Oxcarbazepine Rash Low 04/30/2019 Phenytoin Rash Medium 06/10/2018 Phenytoin Sodium Extended Rash Low 03/27/2017 Medications SPRINTEC, 28, 0.25-35 mg-mcg tablet TAKE 1 TABLET BY MOUTH EVERY DAY 12 9 Active venlafaxine (EFFEXOR XR) 75 mg Extended Release 24 hour capsule 150 mg daily. 0 Active traZODone (DESYREL) 100 mg tablet Take 100 mg by mouth daily at bedtime. 9 Active ergocalciferol (VITAMIN D2) 50,000 unit capsule 0 Active ARIPiprazole (ABILIFY) 5 mg tablet Take 7.5 Tablets by mouth daily. 0 Active montelukast (SINGULAIR) 10 mg tablet Take 10 mg by mouth 2 times daily. Active albuterol sulfate 90 mcg/Actuation inhalerIndication s:Mild intermittent asthma without complication Take 2 Puffs by inhalation every 4 hours as needed for Shortness of Breath or Wheezing. 18 Gram 3 2 Active Active Problems Problem Noted Date Diagnosed Date Current moderate episode of major depressive disorder without prior episode 06/19/2018 Mild intermittent asthma without complication Morbid obesity with body mass index of 40.0-49.9 09/25/2017 Tobacco use 09/25/2017 Immunizations Immunization Administration Dates Next Due (ADACEL/BOOSTRIX)(10 YR UP) TDAP VACCINE, 0.5ML, IM 02/19/2018,01/19/2013 INFLUENZA VACCINE QUADRIVALENT 3 YR UP PF IM INFLUENZA VACCINE QUADRIVALENT 6 MOS UP IM 01/06 INFLUENZA VACCINE QUADRIVALENT 6 MOS UP PF IM ,12/28/2019 Influenza Seasonal Unspecified Formulation IM Influenza Seasonal Unspecified Formulation PF IM 01/04/2010 Family History Medical History Relation Name Comments Hypertension Father Dante Unknown Father Dante Colon Cancer Maternal Grandfather Jacky Linked to Kellogg Syndrome Heart Disease Maternal Grandfather Jacky Pancreatic Cancer Maternal Grandfather Jacky Asthma Maternal Grandmother Dinah Lung Cancer Maternal Grandmother Dinah Not reo ccuring after surgery Cancer Mother Gabriela endometriosis t ied to Kellogg Syndrome Depression Mother Gabriela Hypertension Mother Gabriela Other Mother Gabriela Endrometriosis Uterine Cancer Mother Gabriela Diabetes Paternal Grandfather Don No Known Problems Paternal Grandmother Relation Name Status Comments Father Dante Alive Maternal Grandfather Jacky Maternal Grandmother Dinah Mother Gabriela Alive Paternal Grandfather Don Paternal Grandmother Alive Social History Tobacco Use Types Packs/Day Years Used Date Smoking Tobacco: Some Days Cigarettes Cigars Smokeless Tobacco: Never Tobacco Cessation:Ready to Q uit: No; Counseling Given: No Comments:Seasonal smoker Alcohol Use Standard Drinks/Week Comments Yes 0 (1 standard drink = 0.6 oz pur e alcohol) social Comments No Sex and Gender Information Value Date Recorded Sex Assigned at Not on file Legal Sex Female 9:41 AM CDT Gender Identity Not on file Sexual Orientation Not on file Last Filed Vital Signs Vital Sign Reading Time Taken Comments Blood Pressure 122/78 11/16/2022 7:39 AM CDT Pulse 98 09/01/2021 1:04 PM CDT Temperature 36.6 ??C (97.9 ??F) 09/01/2021 1:04 PM CD T Respiratory Rate 18 09/01/2021 1:04 PM CDT Oxygen Saturation 97% 09/01/2021 1:04 PM CDT Inhaled Oxygen Concentration - - Weight 145.2 kg (320 lb) 11/16/2022 7:39 AM CDT Height 170.2 cm (5' 7 ) 11/16/2022 7:39 AM CDT Body Mass Index 50.12 11/16/2022 7:39 AM CDT Plan of Treatment Health Maintenance Due Date Last Done Comments PNEUMOCOCCAL VACCINE 0-64 YEARS (1 of 2 - PCV) 1986 HEPATITIS B VACCINES (1 of 3 - 19+ 3-dose series) 12/20/1999 CERVICAL CANCER SCREENING 10/30/20202017 (Previously completed) BREAST CANCER SCREENING 12/01/2022 12/02/19 22, 11/11/2017, 11/05/2017 INFLUENZA VACCINE (#1) 2023 , 12/28/2019, 01/06/2018, Additional history exists Pre-Diabetes and Diabetes Screening 11/16/2025 11/16/2022, 09/01/2021 DTAP/TDAP/TD VACCINES (3 - Td or Tdap) 02/20/2028 02/19/2018, 01/19/2013 HPV VACCINES Aged Out No longer eligi ble based on patient's age to complete this topic Procedures Procedure Name Priority Date/Time Associated Diagnosis Comments HEMOGLOBIN A1C Routine 11/16/2022 7:24 AM CDT Abnormal glucose from Last 3 Months or Most Recently Relevant to Health Maintenance Results * HEMOGLOBIN A1C (11/16/2022 7:24 AM CDT) HEMOGLOBIN A1C 5.2 <5.7 % of total Hgb [facility] Comment: For the purpose of screening for the presence of diabetes: <5.7% ? Consistent with the absence of diabetes 5.7-6.4% ?Consistent with increased risk for diabetes ?(prediabetes) > or =6.5% ??Consistent with diabetes This assay result is consistent with a decreased risk of diabetes. Currently, no consensus exists regarding use of hemoglobin A1c for diagnosis of diabetes in children. According to [place] Diabetes Association (ADA) guidelines, hemoglobin A1c <7.0% represents optimal control in non- diabetic patients. Different metrics may apply to specific patient populations. Standards of Medical Care in Diabetes(ADA). ?? ESTIMATED AVERAGE GLUCOSE (MG/DL) 103 mg/dL [facility] ESTIMATED AVERAGE GLUCOSE (MMOL/L) 5.7 mmol/L [facility] Comment: Test Performed at: [facility] [address] [place], [place] ??[address] Ludwig Cotter MD Blood 11/16/2022 7:24 AM CDT 11/20/2022 2:54 PM CDT us Maribeth Devries ANP CHEMISTRY ORDERABLES Final R esult [facility] [phone] [facility] [address] [place] [address] from Last 3 Months or Most Recently Relevant to Health Maintenance Insurance * Guarantor: [employer]) Account Type Relation to Patient Date of Phone Billing Address Corporate Employer ATTN: MANUEL MARINELLI [address] * Guarantor: [employer] Account Type Relation to Patient Date of Phone Billing Address Corporate Employer ATTN: MANUEL MARINELLI [address] [address] Care Teams Sugar Trucker Relationship Specialty Start Date End Date Gómez Hampton MD [address] [place] [id number] PCP - General Family Practice 11/20/22
--- OUTSIDE RECORDS SUMMARY | 2024-04-30 20:27 | XMS_ITS | Patient Health Summary ---
Author Organization [facility] Address [address] [place] [address] Care Team Providers Care Account Collector Name Role Phone Gómez Hampton MD Primary Care Provider [phone] Note from [facility] [place]non-owned Affiliates and Associated Physician Practices is amultiple site organization consisting of ambulatory clinics and hospital sitesin [place], [place], [place] and [place]. This disclosure is being madepursuant to the Care Everywhere program and may not contain all information available regarding this patient. Last updated 17.[facility] Allergies * Copper(Rash) -Medium Criticality * Phenytoin(Rash) -Medium Criticality * Nickel(Rash) -Medium Criticality Medications * Be aware that medications may not be up to date on this document. Alwaysverify current medications with the patient. * escitalopram (LEXAPRO) 10 MG tablet Take 20 mg by mouth once daily * hydrOXYzine hcl (ATARAX) 25 MG tablet Take 25 mg by mouth 4 times daily as needed for Itching * Albuterol Sulfate (VENTOLIN HFA IN) * Cetirizine HCl (ZYRTEC ALLERGY PO) * fluticasone propionate (FLONASE) 50 MCG/ACT nasal spray(Started 08/21/2018) [place] 2 sprays into each nostril once daily * triamcinolone acetonide (KENALOG) 0.1 % ointment(Started 08/21/2018) Apply to affected area 3 times daily as needed Thin layer, avoid face and genital area * montelukast (SINGULAIR) 10 MG tablet Take 10 mg by mouth at bedtime * clobetasol (TEMOVATE) 0.05 % cream Apply to affected area 2 times daily Social History Tobacco Use Types Packs/Day Years Used Date Smoking Tobacco: Some Days Cigars Smokeless Tobacco: Never Sex and Gender Information Value Date Recorded Sex Assigned at Not on file Gender Identity Not on file Sexual Orientation Not on file Last Filed Vital Signs Vital Sign Reading Time Taken Comments Blood Pressure 114/80 01/29/2019 2:05 PM CDT Pulse 100 01/29/2019 2:05 PM CDT Temperature 37.2 ??C (98.9 ??F) 01/29/2019 2:05 PM CD T Respiratory Rate 16 01/29/2019 2:05 PM CDT Oxygen Saturation 96% 01/29/2019 2:05 PM CDT Inhaled Oxygen Concentration - - Weight 130.6 kg (288 lb) 01/29/2019 2:05 PM CDT Height 170.2 cm (5' 7 ) 01/29/2019 2:05 PM CDT Body Mass Index 45.11 01/29/2019 2:05 PM CDT Procedures * STREP A SCREEN - POINT OF CARE (AMB) STL(Performed 08/21/2018) Performed for Allergic rhinitis, unspecified seasonality, unspecified trigger * INFLUENZA A+B - POINT OF CARE (AMB)(Performed 06/10/2018) Performed for Acute maxillary sinusitis, recurrence not specified * STREP A SCREEN - POINT OF CARE (AMB) STL(Performed 06/10/2018) Performed for Acute maxillary sinusitis, recurrence not specified Results * STREP A SCREEN - POINT OF CARE (AMB) STL (08/21/2018 5:22 PM CDT) Only the most recent of2 resultswithin the time period is included. Strep A Rapid POCT Negative Negative Strep A Internal Control Present Lot # [id number] Expiration Date 01 30 2020 Throat ENTIRE THROAT (SURFACE REGION OF NECK) / Unknown 08/21/2018 5:22 PM CDT Paris Forbes [facility] - POINT OF [place] RE ORDERABLES * INFLUENZA A+B - POINT OF CARE (AMB) (06/10/2018 3:41 PM CDT) Influenza A Antigen Rapid Negative Negative Influenza B Antigen Rapid Negative Negative Influenza Internal Control present NEGATIVE - POSITIVE Influenza Lot Number [id number] Influenza Expiration Date 12 24 2019 Other NASOPHARYNGEAL SWAB / Unknown 06/10/2018 3:41 PM CDT Paris Forbes [facility] - POINT OF [place] RE ORDERABLES Care Teams Account Collector Relationship Specialty Start Date End Date Gómez Hampton MD [address] [place] [address] PCP - General Family Medicine 07/22/18
--- OUTSIDE RECORDS SUMMARY | 2024-04-30 20:27 | XMS_ITS | Clinical Summary ---
Author Organization [facility] Address [address] [place] [address]. [place] [address] [place] [address] Care Team Providers Care Billboard Mechanic Name Role Phone Unavailable Primary Care Provider Unavailabl e Social History Tobacco Use Types Packs/Day Years Used Date Smoking Tobacco: Never Assessed Comments Unknown Sex and Gender Information Value Date Recorded Sex Assigned at Not on file Legal Sex Female 8:54 PM SOLUTION STRATEGIST Gender Identity Not on file Sexual Orientation Not on file Plan of Treatment Health Maintenance Due Date Last Done Comments Annual Physical 12/20/1983 Hepatitis C 1998 Hepatitis B Vaccines (1 of 3 - 19+ 3-dose series) 12/20/1999 Cervical Cancer Screening Pap with HPV Testing (Age 30 to 64) Every 5 Years 2010 COVID-19 Vaccine ( season) 2023 Mammogram Screening 12/02/2023 12/01/2021, 11/11/2017, 11/05/2017 Influenza Adult (#1) 2023 01/30/2022, 12/28/2019, 01/06/2018, Additional history exists Cervical Cancer Screening Pap Smear (Age 30 to 64) Every 3 Years 01/26/2027 01/27/2024 Cervical Cancer Screening with HPV 01/26/2027 DTaP, Tdap and Td Vaccines (3 - Td or Tdap) 02/20/2028 02/19/2018, 01/19/2013 HPV Vaccines Aged Out No longer eligi ble based on patient's age to complete this topic Meningococcal B Vaccine Aged Out No l onger eligible based on patient's age to complete this topic Meningococcal Vaccine Aged Out No lefty javi eligible based on patient's age to complete this topic Pneumococcal Vaccine: Pediatrics (0 to 5 Years) and At-Risk Patients (6 to 64 Years) Aged Out No longer eligible based on patient's age to complete this topic RSV Immunizations Under 20 Months Aged Out No longer eligible based on patient's age to complete this topic
--- OUTSIDE RECORDS SUMMARY | 2024-04-30 20:27 | XMS_ITS | Referral Summary ---
Author Organization [facility] Address [address] [place] [address] Care Team Providers Care Roll Forming Machine Set Up Operator Name Role Phone Gómez Hampton MD Primary Care Provider Source Comments [facility],non-owned Affiliates and Associated Physician Practices is amultiple site organization consisting of ambulatory clinics and hospital sitesin [place], [place], [place] and [place]. This disclosure is being madepursuant to the Care Everywhere program and may not contain all information available regarding this patient. Last updated 17.[facility] Allergies Active Allergy Reactions Criticality Noted Date Comments Copper Rash Medium 08/21/2018 bleeding Phenytoin Rash Medium 06/10/2018 Nickel Rash Medium 08/21/2018 Medications * Be aware that medications may not be up to date on this document. Alwaysverify current medications with the patient. Medication Sig Dispensed Refills Start Date End Date Status escitalopram (LEXAPRO) 10 MG tablet Take 20 mg by mouth once daily Active hydrOXYzine hcl (ATARAX) 25 MG tablet Take 25 mg by mouth 4 times daily as needed for Itching Active Albuterol Sulfate (VENTOLIN HFA IN) Active Cetirizine HCl (ZYRTEC ALLERGY PO) Activ e fluticasone propionate (FLONASE) 50 MCG/ACT nasal spray [place] 2 sprays into each nostril once daily 1 bottles 08/21/2018 Active Additional Information Patient not taking.Reported on 01/29/2019 triamcinolone acetonide (KENALOG) 0.1 % ointment Apply to affected area 3 times daily as needed Thin layer, avoid face and genital area 30 g 08/21/2018 Active Additional Information Patient not taking.Reported on 01/29/2019 montelukast (SINGULAIR) 10 MG tablet Take 10 mg by mouth at bedtime Active clobetasol (TEMOVATE) 0.05 % cream Apply to affected area 2 times daily Active Social History Tobacco Use Types Packs/Day Years [...] Mass Index 45.11 01/29/2019 2:05 PM CDT Plan of Treatment Not on file Care Teams Roll Forming Machine Set Up Operator Relationship Specialty Start Date End Date Gómez Hampton MD [address] [place] [id number] PCP - General Family Medicine 07/22/18
--- OUTSIDE RECORDS SUMMARY | 2024-04-30 20:27 | XMS_ITS | Clinical Summary ---
Author Organization [facility] Address [address] [place] [address] Care Team Providers Care Lock Tender Chief Operator Name Role Phone Gómez Hampton MD Primary Care Provider [phone] Source Comments [facility],non-owned Affiliates and Associated Physician Practices is amultiple site organization consisting of ambulatory clinics and hospital sitesin [place], [place], [place] and [place]. This disclosure is being madepursuant to the Care Everywhere program and may not contain all information available regarding this patient. Last updated 17.[facility] Allergies Active Allergy Reactions Criticality Noted Date [...] fluticasone propionate (FLONASE) 50 MCG/ACT nasal spray [place] 2 sprays into each nostril once daily [...] to affected area 2 times daily Active Family History Medical History Relation Name Comments Other Mother nixon syndrome Relation Name Status Comments Mother Social History Tobacco Use Types Packs/Day Years [...] 01/29/2019 2:05 PM CDT Plan of Treatment Health Maintenance Due Date Last Done Comments LIPID TESTING 1980 MAMMOGRAM 1980 PAP SMEAR 1980 HIV SCREENING 12/20/1995 HEPATITIS C SCREENING 12/15/1998 DTAP/TDAP/TD VACCINES (1 - Tdap) 12/20/1999 HEPATITIS B VACCINE (1 of 3 - 19+ 3-dose series) 12/20/1999 PNEUMOCOCCAL VACCINE (1 of 2 - PCV) 12/20/1999 COVID-19 VACCINE (2023-2 5 season) 2023 INFLUENZA VACCINE (#1) 2023 8, 01/11/2017 DEPRESSION SCREENING 04/01/2024 ZOSTER VACCINE (1 of 2) 2030 HIB VACCINE Aged Out No longer eligi ble based on patient's age to complete this topic HPV VACCINE Aged Out No longer eligi ble based on patient's age to complete this topic MENINGOCOCCAL (Group B) VACCINE Aged Out No longer eligible b ased on patient's age to complete this topic MENINGOCOCCAL VACCINE Aged Out No lefty javi eligible based on patient's age to complete this topic Care Teams Lock Tender Chief Operator Relationship Specialty Start Date End Date Gómez Hampton MD [address] [place] [address] PCP - General Family Medicine 07/22/18
--- OUTSIDE RECORDS SUMMARY | 2024-04-30 20:27 | XMS_ITS | Encounter Summary ---
Author Organization [facility] Address [address] [place] [address] Phone Care Team Providers Care Household Appliances Service Technician Name Role Phone Jean Carlos Helms MD Primary Care Provider [phone] No, Physician Primary Care Provider [phone] Jean Carlos Helms MD Unavailable [phone] Edita Forbes MD Unavailable Jean Carlos Helms MD Primary Care Provider [phone] Miscellaneous, Not In File Primary Care Provider Unavailable Miscellaneous, Not In File Primary Care Provider Unavailable Gómez Hampton MD Primary Care Provider [phone] Tracy Marino MD PhD Unavailable [phone] Unknown, Notinfile Primary Care Provider Unavail able Caitlin Mcclain NP Primary Care Provider [phone] Encounter Details Date Type Department Care Team (Late st Contact Info) Description 07/24/2017 Orders Only [facility] ProviderNeil MD [facility] [place] [address] Social History Tobacco Use Types Packs/Day Years Used Date Smoking Tobacco: Never Assessed Comments Unknown Sex and Gender Information Value Date Recorded Sex Assigned at Not on file Legal Sex Female 7:51 PM OFFICE COPY SELECTOR Gender Identity Not on file Sexual Orientation Not on file documented as of this encounter Plan of Treatment Scheduled Procedures Name Priority Associated Diagnoses Date/Ti me COLONOSCOPY 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 Historical Provider LAB BLOOD ORDERABLES Tete l Result documented in this encounter Visit Diagnoses Not on filedocumented in this encounter Care Teams Household Appliances Service Technician Relationship Specialty Start Date End Date Jean Carlos Helms MD [address] [place] [address] PCP - General 05/19/16 11/10/17 No, Physician PCP - General 11/11/17 11/28/17 Jean Carlos Helms MD [address] [place] [address] PCP - General 11/29/17 11/20/18 Miscellaneous, Not In File PCP - General 11/24/18 11/26/18 Miscellaneous, Not In File PCP - General 11/21/18 11/23/18 Gómez Hampton MD [address] [place] [address] PCP - General Family Medicine 11/27/18 06/07/20 Unknown, Notinfile PCP - General 06/08/20 01/09/24 Caitlin Mcclain WATER QUALITY ANALYST [address] [place] [address] PCP - General Nurse Practitioner 01/10/24 Jean Carlos Helms MD [address] [place] [address] 11/11/17 Edita Forbes MD [address] [facility] [address] [place] [address] Referring Physician Reproductive Endocrinology and Infertility 11/11/17 Tracy Marino MD PhD [address] [address] Referring Physician Obstetrics and Gynecology 07/24/17 documented as of this encounter
--- OUTSIDE RECORDS SUMMARY | 2024-04-30 20:27 | XMS_ITS | Clinical Summary ---
Author Organization [facility] Address [address] [place] [address] Care Team Providers Care Urgent Care Nurse Practitioner Name Role Phone Jean Carlos Helms MD Unavailable [phone] Edita Forbes MD Unavailable [phone] [facility], Tracy Meier MD PhD Unavailable [phone] Caitlin Mcclain NP Primary Care Provider [phone] Allergies Active Allergy Reactions Criticality Noted Date Comments Copper Other (See comments),Rash Medium 02/19/2018 Reaction: Other Reaction: OTHER, ?? Cupric Sulfate (Bulk) Blisters High Phenytoin Rash Medium Divalproex Hives Medium Reaction: HIVES, Nickel Rash Medium 02/19/2018 Oxcarbazepine Rash Medium 04/30/2019 Medications ibuprofen (ADVIL,MOTRIN) 200 mg tab/cap as needed Active albuterol HFA (PROVENTIL HFA,VENTOLIN HFA) 90 mcg/actuation inhaler Inhale 2 puffs every 6 hours as needed 7 Active venlafaxine 225 mg tablet extended release 24hr 24 hr tablet Take 1 tablet (225 mg total) by mouth daily 2 Active buPROPion XL (WELLBUTRIN XL) 150 mg 24 hr tablet Take 1 tablet (150 mg total) by mouth daily 2 Active traZODone (DESYREL) 50 mg tablet Take 1 tablet (50 mg total) by mouth nightly 3 Active rizatriptan MANAGER OF ENTERPRISE (MAXALT-MANAGER OF ENTERPRISE) 10 mg disintegrating tablet TAKE 1 TAB AT ONSET OF HEADACHE IF NO RELIEF MAY REPEAT 1 TAB AFTER AT LEAST 2 HRS MAX = 3 TABS/24HR 3 Active ARIPiprazole (ABILIFY) 5 mg tablet Take 1 tablet (5 mg total) by mouth daily 3 Active Nidia 0.25-35 mg-mcg per tabletIndications: PMS2-related Kellogg syndrome (HNPCC4) TAKE 1 TABLET BY MOUTH EVERY DAY 84 tablet 4 4 Active ipratropium-albute roL (DUO-NEB) 0.5-2.5 mg/3 mL nebulizer solution INHALE CONTENTS OF 1 VIAL 4 TIMES DAILY NEEDED FOR SHORTNESS OF BREATH/WHEEZI NG 4 Active montelukast (SINGULAIR) 10 mg tablet Take 1 tablet (10 mg total) by mouth daily 4 Active propranoloL (INDERAL) 20 mg tablet Take 1 tablet (20 mg total) by mouth daily 4 Active azelastine (ASTELIN) 137 mcg (0.1 %) nasal spray 4 Active Active Problems Problem Noted Date Diagnosed Date Kellogg syndrome 11/11/2023 Health care maintenance 11/11/2023 Screening for malignant neoplasm 12/16/2019 Overview (12/16/2019): Added automatically from request for surgery [id number] Current moderate episode of major depressive disorder without prior episode 06/19/2018 Mild intermittent asthma without complication Encounter for screening colonoscopy 09/25/2017 Overview (09/25/2017): Added automatically from request for surgery [id number] Tobacco use 09/25/2017 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 Smaller but still increased risk of ovarian cancer. Recent literature suggests possible increased risk of breast cancer, as well. -Endometrial/ovarian cancer risk: U/S and CA-125 WNL today. Bleeding pattern is regular. RTC 6 months for repeat U/S and EMBx. She is interested in risk-reducing surgery, but would also like to talk with [facility] to explore options for egg harvesting. No current partner and unsure about future fertility goals, but would like to hear all her options. -CRC risk: Refer to CRS for colonoscopy and discussion of possible ASA use for prevention. We discussed unlikely a role for risk-reducing surgery here, but will refer to CRS for further discussion. -breast risk: Slightly elevated based on recent data from [employer]. Will refer for mammogram and risk assessment with our breast surgeons. Obesity (BMI 35.0-39.9 without comorbidity) 05/30 Assessment & Plan (09/04/2017 2:27 PM CDT): Using an jaya called [employer] Run Couch to 5K. Will get back to personal financial planner at gym. Discussed [employer] jaya as well. Has a [employer] watch. Discussed importance lifestyle for decreasing cancer risk. Resolved Problems Problem Noted Date Diagnosed Date Resolved Date Bile leak 05/28/2016 09/03/2017 Immunizations Name Administration Dates Next Due Influenza, Quadrivalent, Spl it, Intramuscular 01/06/2018 Influenza, Quadrivalent, Spl it, Preservative Free, Intramuscular 01/30/2022,12/28/2019,01/11/2017 Influenza, Trivalent, IM (MDV) 01/19/2013 Influenza, Trivalent, Preser vative Free, Intramuscular 01/04/2010 Tdap 02/19/2018,01/19/2013 Surgical History Surgery Date Site/Laterality Comments ABSCESS CATHETER INJECTION 06/15/2016 N/A ABSCESS TUBE EXCHANGE 06/14/2016 N/A ABSCESS CATHETER INJECTION 06/14/2016 N/A CT GUIDED DRAINAGE PERITONEA L OR RETROPERITONEAL FLUID COLLECTION 05/30/2016 N/A VT CHOLECSTOT/CHOLECSTOST W/EXPL DRG/RMVL ST1 SPX Cholecystotomy - (Added by TW Conv) CHOLECYSTECTOMY 04/01/2016 - 03/31/2017 ABSCESS TUBE EXCHANGE 06/20/2016 N/A COLONOSCOPY Medical History Medical History Date Comments Personal history of other di seases of the respiratory system History of asthma - (Added b y TW Conv) COPD (chronic obstructive pu lmonary disease) (HCC) Colon polyp Pancreatitis Kidney stone Cholelithiasis Asthma Seizures (HCC) one isolated kanika ghotra after head injury in highschool Chronic sinus infection Kellogg syndrome Family History Medical History Relation Name Comments Prostate cancer Maternal Grandfather Lung cancer Maternal Grandmother Endometrial cancer Mother Prostate cancer Mother's Brother Ovarian cancer Mother's Sister Diabetes Paternal Grandfather Relation Name Status Comments Maternal Grandfather Maternal Grandmother Mother Mother's Brother Mother's Sister Paternal Grandfather Social History Tobacco Use Types Packs/Day Years Used Date Smoking Tobacco: Light Smoker Cigars Cigarillos Smokeless Tobacco: Never Tobacco Cessation:Ready to Q uit: No; Counseling Given: No Alcohol Use Standard Drinks/Week Comments Yes 0 (1 standard drink = 0.6 oz pur e alcohol) drinks socially Comments No Sex and Gender Information Value Date Recorded Sex Assigned at Not on file Legal Sex Female 7:51 PM CLIENT PARTNER Gender Identity Not on file Sexual Orientation Not on file Obstetrics History Para Term AB IAB SAB Ectopic Multiple Livin g Live Births 0 0 0 0 0 0 0 0 0 0 0 Last Filed Vital Signs Vital Sign Reading Time Taken Comments Blood Pressure 140/95 01/27/2024 1:03 PM CDT Pulse 109 01/27/2024 1:03 PM CDT Temperature 36.3 ??C (97.3 ??F) 01/27/2024 1:03 PM CD T Respiratory Rate 18 01/27/2024 1:03 PM CDT Oxygen Saturation 98% 01/27/2024 1:03 PM CDT Inhaled Oxygen Concentration - - Weight 144.4 kg (318 lb 6.4 oz) 01/27/2024 1:03 PM CDT Height 170.2 cm (5' 7.01 ) 04/18/2023 1 0:32 AM CLIENT PARTNER Body Mass Index 49.86 04/18/2023 10:32 AM CLIENT PARTNER Plan of Treatment Scheduled Procedures Name Priority Associated Diagnoses Date/Ti me COLONOSCOPY Open Access Kellogg syndrome Health care maintenance Health Maintenance Due Date Last Done Comments Depression Screening 1980 Hepatitis C Screening 1980 Pneumococcal vaccine <65 (1 of 2 - PCV) 1986 Varicella Vaccines (1 of 2 - 13+ 2-dose series) 1993 Hepatitis B Screening 1998 Regular Well Visit/Exam 18-64 1998 Breast Cancer Screening-Mammogram 12/01/2022 12/01/2021, 12/01/2021, 11/11/2017, Additional history exists Influenza Vaccine (#1) 2023 2, 12/28/2019, 01/06/2018, Additional history exists Cervical Cancer Screening 01/26/2025 01/27/2024, DTaP/Tdap/Td Vaccine (3 - Td or Tdap) 02/20/2028 02/19/2018, 01/19/2013 HPV Vaccines Aged Out No longer eligi ble based on patient's age to complete this topic Procedures Procedure Name Priority Date/Time Associated Diagnosis Comments HIGH RISK HPV DNA DETECTION WITH GENOTYPING Routine 01/27/2024 4:47 PM CDT PMS2-related Kellogg syndrome (HNPCC4) SCREENING MAMMOGRAM BILATERAL W YONY Schedule Routine, Read Routine (OP Routine) 12/01/2021 1:31 PM CDT PMS2-related Kellogg syndrome (HNPCC4) Healthcare maintenance from Last 3 Months or Most Recently Relevant to Health Maintenance Results * High Risk HPV DNA Detection with Genotyping (Molecular component) (01/27/2024 4:47 PM CDT) Pathologist [facility] HPV HR 16 Not Detected Not Detected [facility] HPV HR 18 Not Detected Not Detected PAMELA [facility] HPV HR Non 16/18 Not Detected Not Detected P[facility]ELA [facility] Comment: Interpretive Data Nucleic acid amplification for detection of high-risk Human Papilloma virus (HPV) is performed by the Leticia Lisa 6800 HPV test. ??This assay specifically detects HPV-16 and HPV-18 genotypes. ??The following HPV genotypes are detected as high-risk HPV: ?? HPV-31, 33, 35, ,39, 45, 51, 52, 56, 58, 59, 66, and 68. ??This assay has been approved by the [place] Food and Drug Administration for detection of HPV in cervical specimens collected by a physician using an endocervical brush/spatula or cervical broom and placed in the ThinPrep Pap Test PreservCyt collection containers. ??The performance characteristics of this test have been verified by the [facility] Molecular Infectious Disease laboratory. Correlate with separately reported cytology results, as applicable. Interpretive data last revised 22 Endocervical 01/27/2024 4:47 PM CDT 01/28/2024 3:11 PM CDT Narrative PAMELA POWELL - 01/29/2024 4:02 AM CDT Clinical history and diagnosis->Normal pap history Testing type->Screening Last menstrual period (date if known)->01/13/24 Stephy Manning NP LAB BODY FLUIDS AND STOOLS O RDERABLES Final Result [facility] Department [place] [address] [facility] * SCREENING MAMMOGRAM BILATERAL W YONY (12/01/2021 1:31 PM CDT) Anatomical Region Laterality Modality Breast Bilateral Mammography Narrative 12/05/2021 1:04 PM CDT Mammogram Technique: Bilateral Digital Breast Tomosynthesis, Bilateral C-view 2D Screening mammogram. ??Views obtained: ??bilateral craniocaudal and bilateral mediolateral oblique. ??Computer Aided Detection was performed. Mammogram Findings: The present examination has been compared to prior imaging studies performed at [facility] on 11/05/2017 and 11/11/2017. There are scattered areas of fibroglandular density. There is no suspicious abnormality in either breast. Impression: There is no mammographic evidence of malignancy. Annual screening mammography is recommended. OVERALL FINAL ASSESSMENT: BI-RADS CATEGORY 1: ??Negative. Procedure Note Akua Castillo MD - 12/05/2021 Mammogram Technique: Bilateral Digital Breast Tomosynthesis, Bilateral C-view 2D Screening mammogram. Views obtained: bilateral craniocaudal and bilateral mediolateral oblique. Computer Aided Detection was performed. Mammogram Findings: The present examination has been compared to prior imaging studies performed at [facility] on 11/05/2017 and 11/11/2017. There are scattered areas of fibroglandular density. There is no suspicious abnormality in either breast. Impression: There is no mammographic evidence of malignancy. Annual screening mammography is recommended. OVERALL FINAL ASSESSMENT: BI-RADS CATEGORY 1: Negative. Candido Arreguin MD IMG MAMMO PROCEDURES Fin al Result from Last 3 Months or Most Recently Relevant to Health Maintenance Insurance [facility] [address] [email or web address] [facility] EXCHANGE [facility] EXCHANGE Advance Directives For more information, please contact: [phone] * Full Code (Latest Code Status on File) Date Activated Date Inactivated Comments 03/04/2020 8:32 AM 03/04/2020 3:21 PM * Full Code Date Activated Date Inactivated Comments 11/29/2017 8:28 AM 11/29/2017 12:44 PM Care Teams Urgent Care Nurse Practitioner Relationship Specialty Start Date End Date Caitlin Mcclain NP [address] [place] [address] PCP - General Nurse Practitioner 01/10/24 Jean Carlos Helms MD [address] [place] [address] 11/11/17 Edita Forbes MD [address] [facility] [address] [place] [address] Referring Physician Reproductive Endocrinology and Infertility 11/11/17 Tracy Marino MD PhD [address] [facility] [address] [place] [address] Referring Physician Obstetrics and Gynecology 07/24/17
--- OUTSIDE RECORDS SUMMARY | 2024-04-30 20:27 | XMS_ITS | Referral Summary ---
Author Organization [facility] Address [address] [place] [address] Care Team Providers Care Property Economist Name Role Phone Jean Carlos Helms MD Unavailable Edita Forbes MD Unavailable [phone] [facility], Tracy Meier MD PhD Unavailable [phone] Caitlin Mcclain NP Primary Care Provider [phone] Allergies Active Allergy Reactions Criticality Noted Date [...] total) by mouth nightly 3 Active rizatriptan LINT CLEANER (MAXALT-LINT CLEANER) 10 mg disintegrating tablet TAKE 1 TAB [...] (12/16/2019): Added automatically from request for surgery [id number] Current moderate episode of major depressive disorder without prior episode 06/19/2018 Mild intermittent asthma without complication Encounter for screening colonoscopy 09/25/2017 Overview (09/25/2017): Added automatically from request for surgery [id number] Tobacco use 09/25/2017 PMS2-related Kellogg syndrome (HNPCC4) [...] Slightly elevated based on recent data from [employer]. Will refer for mammogram and risk assessment with our breast surgeons. Obesity (BMI 35.0-39.9 without comorbidity) 05/30 Assessment & Plan (09/04/2017 2:27 PM CDT): Using an jaya called [employer] Run Couch to 5K. Will get back to personal carer at gym. Discussed [employer] jaya as well. Has a [employer]fix watch. Discussed importance lifestyle for decreasing cancer risk. Resolved Problems Problem Noted Date Diagnosed Date Resolved Date Bile leak 05/28/2016 09/03/2017 Immunizations Name Administration Dates Next Due Influenza, Quadrivalent, Spl it, Intramuscular 01/06/2018 Influenza, Quadrivalent, Spl it, Preservative Free, Intramuscular 01/30/2022,12/28/2019,01/11/2017 Influenza, Trivalent, IM (MDV) 01/19/2013 Influenza, Trivalent, Preser vative Free, Intramuscular 01/04/2010 Tdap 02/19/2018,01/19/2013 Social History Tobacco Use Types Packs/Day Years [...] on file Legal Sex Female 7:51 PM MAJOR GENERAL Gender Identity Not on file Sexual Orientation [...] (5' 7.01 ) 04/18/2023 1 0:32 AM MAJOR GENERAL Body Mass Index 49.86 04/18/2023 10:32 AM MAJOR GENERAL Plan of Treatment Scheduled Procedures Name Priority Associated Diagnoses Date/Ti me COLONOSCOPY Open Access Kellogg syndrome Health care maintenance Procedures Procedure Name Priority Date/Time Associated Diagnosis [...] (Molecular component) (01/27/2024 4:47 PM CDT) Pathologist [facility] HPV HR 16 Not Detected Not Detected [facility] HPV HR 18 Not Detected Not Detected PAMELA [facility] HPV HR Non 16/18 Not Detected Not Detected [facility] Comment: Interpretive Data Nucleic acid amplification for [...] this test have been verified by the [facility] Molecular Infectious Disease laboratory. Correlate with separately reported cytology results, as applicable. Interpretive data last revised 22 Endocervical 01/27/2024 4:47 PM CDT 01/28/2024 3:11 PM CDT Narrative PAMELA POWELL - 01/29/2024 4:02 AM CDT Clinical history and diagnosis->Normal pap history Testing type->Screening Last menstrual period (date if known)->01/13/24 Stephy Manning NP LAB BODY FLUIDS AND STOOLS O RDERABLES Final Result [facility] Department [place] [address] [facility] * SCREENING MAMMOGRAM BILATERAL W YONY (12/01/2021 1:31 PM CDT) Anatomical Region Laterality Modality Breast Bilateral Mammography Narrative 12/05/2021 1:04 PM CDT Mammogram Technique: Bilateral Digital Breast Tomosynthesis, Bilateral C-view 2D Screening mammogram. ??Views obtained: ??bilateral craniocaudal and bilateral mediolateral oblique. ??Computer Aided Detection was performed. Mammogram Findings: The present examination has been compared to prior imaging studies performed at [facility] on 11/05/2017 and 11/11/2017. There are scattered [...] compared to prior imaging studies performed at [facility] on 11/05/2017 and 11/11/2017. There are scattered areas of fibroglandular density. There is no suspicious abnormality in either breast. Impression: There is no mammographic evidence of malignancy. Annual screening mammography is recommended. OVERALL FINAL ASSESSMENT: BI-RADS CATEGORY 1: Negative. Candido Arreguin MD IMG MAMMO PROCEDURES Fin al Result from Last 3 Months or Most Recently Relevant to Health Maintenance Insurance [facility] [address] ipvive [facility] EXCHANGE [facility] EXCHANGE Advance Directives For more information, please contact: [phone] * Full Code (Latest Code Status on File) Date Activated Date Inactivated Comments 03/04/2020 8:32 AM 03/04/2020 3:21 PM * Full Code Date Activated Date Inactivated Comments 11/29/2017 8:28 AM 11/29/2017 12:44 PM Care Teams Property Economist Relationship Specialty Start Date End Date Caitlin Mcclain NP [address] [place] [address] PCP - General Nurse Practitioner 01/10/24 Jean Carlos Helms MD [address] [place] [address] 11/11/17 Edita Forbes MD [address] [facility] [address] [place] [address] Referring Physician Reproductive Endocrinology and Infertility 11/11/17 Tracy Marino MD PhD [id number] [place] [address] Referring Physician Obstetrics and Gynecology 07/24/17
[2024-04-30 20:46] VITALS: BP 123/67; PULSE 75; RESP 14; TEMP 36.7; O2SAT 96
[2024-04-30 21:02] LABS: Basophils Absolute Auto 0.1 K/mm3 (0.0-0.1); Basophils Percent Auto 0.7 % (0.2-1.2); Eosinophils Absolute Auto 0.1 K/mm3 (0-0.3); Eosinophils Percent Auto 2.1 % (0-4.4); Hemoglobin 12.9 g/dL (12.0-15.0); Immature Granulocyte Absolute 0.02 K/mm3 (0.00-0.031); Immature Granulocyte Percent A 0.3 % (0-0.5); Lymphocytes Absolute Auto 2.48 K/mm3 (0.9-3.2); Lymphocytes Percent Auto 36.4 % (18.3-44.2); Mean Corpuscular HGB Conc 32.3 g/dl (32-36); Mean Corpuscular Hemoglobin 30.4 pg (26-34); Mean Corpuscular Volume 94.3 fl (80-100); Mean Platelet Volume 11.1 fl (7.4-10.4); Monocytes Absolute Auto 0.6 K/mm3 (0.1-0.6); Monocytes Percent Auto 8.5 % (2.6-8.5); Neutrophils Absolute Auto 3.5 K/mm3 (1.3-6.7); Platelet Count Result 238 k/mm3 (150-375); Red Blood Count 4.24 M/mm3 (4.2-5.4); Red Cell Distribution Width 14.6 % (11.5-14.5); White Blood Count 6.8 K/mm3 (4.5-10.0)
[2024-04-30 21:09] LABS: BEDSIDEPREGUCG Negative (Negative)
[2024-04-30 21:12] LABS: Alanine Aminotransferase 29 U/L (6-35); Albumin Level 3.6 g/dL (3.5-5.1); Alkaline Phosphatase 67 U/L (38-126); Anion Gap 9 mmol/L (4-12); Aspartate Amino Transferase 26 U/L (14-36); Bilirubin,Total 0.4 mg/dL (0.2-1.3); Blood Urea Nitrogen 12 mg/dL (7-17); Calcium 9.2 mg/dL (8.4-10.2); Carbon Dioxide 22 mmol/L (22-30); Chloride 107 mmol/L (98-107); Estimated CRCL calculation 67 ml/min; Estimated Glomerular Filt Rate > 60; Glucose 94 mg/dL (65-110); Lipase 67 U/L (23-300); Potassium 4.1 mmol/L (3.4-5.0); Sodium 138 mmol/L (137-145)
[2024-04-30 21:23] LABS: Add Urine Microscopic? YES; Appearance Urine Cloudy (Clear); Bacteria Urine None Seen /hpf; Bilirubin Urine Negative (Negative); Blood Urine Negative (Negative); Color Urine Yellow (Yellow); Glucose Urine UA Negative (Negative); Ketones Urine Trace mg/dL (Negative); Leukocyte Esterase Ur Negative LEU/UL (Negative); Nitrate Urine Negative (Negative); Protein Urine Negative (Negative); RBC Urine 0-2 /hpf (0-2); Specific Grav Ur 1.025 (1.001-1.035); Squamous Epithelial Cell Urine Moderate /hpf (Few); Urobilinogen Urine 0.2 mg/dL (<2.0); WBC Urine 0-5 /hpf (0-3); pH Urine 5.5 (5.0-9.0)
--- OUTSIDE RECORDS SUMMARY | 2024-04-30 22:24 | XMS_ITS | Patient Health Summary ---
Author Organization [facility] Address [address] [place] [address] Care Team Providers Care Back Tender Fourdrinier Name Role Phone Gómez Hampton MD Primary Care Provider [phone] [facility],non-owned Affiliates and Associated Physician Practices is amultiple site organization consisting of ambulatory clinics and hospital sitesin [place], [place], [place] and [place]. This disclosure is being madepursuant to the Care Everywhere program and may not contain all information available regarding this patient. Last updated 17.[facility] Allergies * Copper(Rash) -Medium Criticality * Phenytoin(Rash) [...] propionate (FLONASE) 50 MCG/ACT nasal spray(Started 08/21/2018) [place] 2 sprays into each nostril once daily [...] Strep A Internal Control Present Lot # [id number] Expiration Date 01 30 2020 Throat ENTIRE THROAT (SURFACE REGION OF NECK) / Unknown 08/21/2018 5:22 PM CDT [place] [facility]PART[facility] HEAD-RESIDENTIAL TREATMENT SPECIALIST LAB - POINT OF CA RE ORDERABLES * INFLUENZA A+B - POINT OF CARE (AMB) (06/10/2018 3:41 PM CDT) Influenza A Antigen Rapid Negative Negative Influenza B Antigen Rapid Negative Negative Influenza Internal Control present NEGATIVE - POSITIVE Influenza Lot Number [id number] Influenza Expiration Date 12 24 2019 Other NASOPHARYNGEAL SWAB / Unknown 06/10/2018 3:41 PM CDT Paris Forbes [employer]SPORTATION DEPARTMENT HEAD-RESIDENTIAL TREATMENT SPECIALIST LAB - POINT OF CA RE ORDERABLES Care Teams Back Tender Fourdrinier Relationship Specialty Start Date End Date Gómez Hampton MD [address] [place] [id number] PCP - General Family Medicine 07/22/18
--- OUTSIDE RECORDS SUMMARY | 2024-04-30 22:24 | XMS_ITS | Referral Summary ---
Author Organization [facility] Address [address] [place] [address] Care Team Providers Care Child Neurologist Name Role Phone Jean Carlos Helms MD Unavailable [phone] Edita Forbes MD Unavailable [phone] [facility], Tracy Meier MD PhD Unavailable [phone] Caitlin Mcclain NP Primary Care Provider [phone] Allergies Active Allergy Reactions Criticality Noted Date [...] total) by mouth nightly 3 Active rizatriptan TRACTOR DRIVER (MAXALT-TRACTOR DRIVER) 10 mg disintegrating tablet TAKE 1 TAB [...] (12/16/2019): Added automatically from request for surgery [id number] Current moderate episode of major depressive disorder without prior episode 06/19/2018 Mild intermittent asthma without complication Encounter for screening colonoscopy 09/25/2017 Overview (09/25/2017): Added automatically from request for surgery [id number] Tobacco use 09/25/2017 PMS2-related Kellogg syndrome (HNPCC4) [...] Slightly elevated based on recent data from [facility]. Will refer for mammogram and risk assessment with our breast surgeons. Obesity (BMI 35.0-39.9 without comorbidity) 05/30 Assessment & Plan (09/04/2017 2:27 PM CDT): Using an jaya called IMshopping Run Couch to 5K. Will get back to personal assistant at gym. Discussed Litbloc jaya as well. Has a K[employer]ast watch. Discussed importance lifestyle for decreasing cancer [...] on file Legal Sex Female 7:51 PM CHANNEL LAYER Gender Identity Not on file Sexual Orientation [...] (5' 7.01 ) 04/18/2023 1 0:32 AM CHANNEL LAYER Body Mass Index 49.86 04/18/2023 10:32 AM CHANNEL LAYER Plan of Treatment Scheduled Procedures Name Priority [...] (Molecular component) (01/27/2024 4:47 PM CDT) Pathologist [facility] HPV HR 16 Not Detected Not Detected [facility] HPV HR 18 Not Detected Not Detected PAMELA [facility] HPV HR Non 16/18 Not Detected Not Detected [facility] Comment: Interpretive Data Nucleic acid amplification for [...] this test have been verified by the [facility] Molecular Infectious Disease laboratory. Correlate with separately reported cytology results, as applicable. Interpretive data last revised 22 Endocervical 01/27/2024 4:47 PM CDT 01/28/2024 3:11 PM CDT Narrative PAMELA POWELL - 01/29/2024 4:02 AM CDT Clinical history and diagnosis->Normal pap history Testing type->Screening Last menstrual period (date if known)->01/13/24 Stephy Manning NP LAB BODY FLUIDS AND STOOLS O RDERABLES Final Result [facility] Department [place] [address] [facility] * SCREENING MAMMOGRAM BILATERAL W YONY (12/01/2021 1:31 PM CDT) Anatomical Region Laterality Modality Breast Bilateral Mammography Narrative 12/05/2021 1:04 PM CDT Mammogram Technique: Bilateral Digital Breast Tomosynthesis, Bilateral C-view 2D Screening mammogram. ??Views obtained: ??bilateral craniocaudal and bilateral mediolateral oblique. ??Computer Aided Detection was performed. Mammogram Findings: The present examination has been compared to prior imaging studies performed at [facility] on 11/05/2017 and 11/11/2017. There are [...] compared to prior imaging studies performed at [facility] on 11/05/2017 and 11/11/2017. There are scattered areas of fibroglandular density. There is no suspicious abnormality in either breast. Impression: There is no mammographic evidence of malignancy. Annual screening mammography is recommended. OVERALL FINAL ASSESSMENT: BI-RADS CATEGORY 1: Negative. Candido Arreguin MD IMG MAMMO PROCEDURES Fin al Result from Last 3 Months or Most Recently Relevant to Health Maintenance Insurance [facility] [address] [employer] [facility] EXCHANGE [facility] EXCHANGE Advance Directives For more information, please contact: [phone] * Full Code (Latest Code Status on File) Date Activated Date Inactivated Comments 03/04/2020 8:32 AM 03/04/2020 3:21 PM * Full Code Date Activated Date Inactivated Comments 11/29/2017 8:28 AM 11/29/2017 12:44 PM Care Teams Child Neurologist Relationship Specialty Start Date End Date Caitlin Mcclain NP [address] [place] [address] PCP - General Nurse Practitioner 01/10/24 Jean Carlos Helms MD [address] [place] [address] 11/11/17 Edita Forbes MD [address] [facility] [address] [place] [address] Referring Physician Reproductive Endocrinology and Infertility 11/11/17 Tracy Marino MD PhD [address] [place] [address] Referring Physician Obstetrics and Gynecology 07/24/17
--- OUTSIDE RECORDS SUMMARY | 2024-04-30 22:24 | XMS_ITS | Clinical Summary ---
Author Organization [facility] Address [address] [place] [address] Care Team Providers Care Watch Hairspring Assembler Name Role Phone Jean Carlos Helms MD Unavailable [phone] Edita Forbes MD Unavailable [phone] [facility], Tracy Meier MD PhD Unavailable [phone] Caitlin Mcclain NP Primary Care Provider [phone] Allergies Active Allergy Reactions Criticality Noted Date [...] total) by mouth nightly 3 Active rizatriptan BOTTLING LINE ATTENDANT (MAXALT-BOTTLING LINE ATTENDANT) 10 mg disintegrating tablet TAKE 1 TAB [...] (12/16/2019): Added automatically from request for surgery [id number] Current moderate episode of major depressive disorder without prior episode 06/19/2018 Mild intermittent asthma without complication Encounter for screening colonoscopy 09/25/2017 Overview (09/25/2017): Added automatically from request for surgery [id number] Tobacco use 09/25/2017 PMS2-related Kellogg syndrome (HNPCC4) [...] Slightly elevated based on recent data from [facility]. Will refer for mammogram and risk assessment with our breast surgeons. Obesity (BMI 35.0-39.9 without comorbidity) 05/30 Assessment & Plan (09/04/2017 2:27 PM CDT): Using an jaya called [employer] Run Couch to 5K. Will get back to personal service representative at gym. Discussed V[employer]ra jaya as well. Has a [employer] watch. 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 Gender Identity Not on file Sexual Orientation [...] (5' 7.01 ) 04/18/2023 1 0:32 AM TESTING SPECIALIST Body Mass Index 49.86 04/18/2023 10:32 AM TESTING SPECIALIST Plan of Treatment Scheduled Procedures Name Priority [...] HPV HR 16 Not Detected Not Detected [facility] HPV HR 18 Not Detected Not Detected PAMELA [facility] HPV HR Non 16/18 Not Detected Not Detected PAMELA [facility] Comment: Interpretive Data Nucleic acid amplification for [...] this test have been verified by the [facility] Molecular Infectious Disease laboratory. Correlate with separately reported cytology results, as applicable. Interpretive data last revised 22 Endocervical 01/27/2024 4:47 PM CDT 01/28/2024 3:11 PM CDT Narrative PAMELA POWELL - 01/29/2024 4:02 AM CDT Clinical history and diagnosis->Normal pap history Testing type->Screening Last menstrual period (date if known)->01/13/24 Stephy Manning NP LAB BODY FLUIDS AND STOOLS O RDERABLES Final Result [facility] Department [place] [address] [facility] * SCREENING MAMMOGRAM BILATERAL W YONY (12/01/2021 1:31 PM CDT) Anatomical Region Laterality Modality Breast Bilateral Mammography Narrative 12/05/2021 1:04 PM CDT Mammogram Technique: Bilateral Digital Breast Tomosynthesis, Bilateral C-view 2D Screening mammogram. ??Views obtained: ??bilateral craniocaudal and bilateral mediolateral oblique. ??Computer Aided Detection was performed. Mammogram Findings: The present examination has been compared to prior imaging studies performed at [facility] on 11/05/2017 and 11/11/2017. There are [...] compared to prior imaging studies performed at [facility] on 11/05/2017 and 11/11/2017. There are scattered areas of fibroglandular density. There is no suspicious abnormality in either breast. Impression: There is no mammographic evidence of malignancy. Annual screening mammography is recommended. OVERALL FINAL ASSESSMENT: BI-RADS CATEGORY 1: Negative. Candido Arreguin MD IMG MAMMO PROCEDURES Fin al Result from Last 3 Months or Most Recently Relevant to Health Maintenance Insurance [facility] [place] [address] [place] [facility] EXCHANGE [facility] EXCHANGE Advance Directives For more information, please contact: [phone] * Full Code (Latest Code Status on File) Date Activated Date Inactivated Comments 03/04/2020 8:32 AM 03/04/2020 3:21 PM * Full Code Date Activated Date Inactivated Comments 11/29/2017 8:28 AM 11/29/2017 12:44 PM Care Teams Watch Hairspring Assembler Relationship Specialty Start Date End Date Caitlin Mcclain NP [address] [place] [address] PCP - General Nurse Practitioner 01/10/24 Jean Carlos Helms MD [address] [place] [address] 11/11/17 Edita Forbes MD [address] [facility] [address] [place] [address] Referring Physician Reproductive Endocrinology and Infertility 11/11/17 Tracy Marino MD PhD [address] [facility] [address] [place] [address] Referring Physician Obstetrics and Gynecology 07/24/17
--- OUTSIDE RECORDS SUMMARY | 2024-04-30 22:24 | XMS_ITS | Clinical Summary ---
Author Organization [facility] [employer] Address [address] [place] [address] Care Team Providers Care Erp Developer Name Role Phone Gómez Hampton MD Primary Care Provider Source Comments [facility],non-owned Affiliates and Associated Physician Practices is amultiple site organization consisting of ambulatory clinics and hospital sitesin [place], [place], [place] and [place]. This disclosure is being madepursuant to the Care Everywhere program and may not contain all information available regarding this patient. Last updated 17.[facility] Allergies Active Allergy Reactions Criticality Noted Date [...] fluticasone propionate (FLONASE) 50 MCG/ACT nasal spray [place] 2 sprays into each nostril once daily [...] age to complete this topic Care Teams Erp Developer Relationship Specialty Start Date End Date Gómez Hampton MD [address] [place] [address] PCP - General Family Medicine 07/22/18
--- OUTSIDE RECORDS SUMMARY | 2024-04-30 22:24 | XMS_ITS | Encounter Summary ---
Author Organization [facility] Address [address] [place] [address] Phone Care Team Providers Care Small Business Sales Representative Name Role Phone Jean Carlos Helms MD Primary Care Provider No, Physician Primary Care Provider [phone] Jean Carlos Helms MD Unavailable [phone] Edita Forbes MD Unavailable Jean Carlos Helms MD Primary Care Provider [phone] Miscellaneous, Not In File Primary Care Provider Unavailable Miscellaneous, Not In File Primary Care Provider Unavailable Gómez Hampton MD Primary Care Provider [phone] Tarcy Marino MD PhD Unavailable [phone] Unknown, Notinfile Primary Care Provider Unavail able Caitlin Mcclain NP Primary Care Provider [phone] Encounter Details Date Type Department Care Team (Late st Contact Info) Description 07/24/2017 Orders Only [facility] Care ProviderNeil MD [place] [address] Social History Tobacco Use Types Packs/Day Years Used Date Smoking Tobacco: Never Assessed Comments Unknown Sex and Gender Information Value Date Recorded Sex Assigned at Not on file 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 Gender Identity Not on file Sexual Orientation [...] on filedocumented in this encounter Care Teams Small Business Sales Representative Relationship Specialty Start Date End Date Jean Carlos Helms MD [address] [place] [address] PCP - General 05/19/16 11/10/17 No, Physician PCP - General 11/11/17 11/28/17 Jean Carlos Helms MD [address] [place] [address] PCP - General 11/29/17 11/20/18 Miscellaneous, Not In File PCP - General 11/24/18 11/26/18 Miscellaneous, Not In File PCP - General 11/21/18 11/23/18 Gómez Hampton MD [address] [place] [address] PCP - General Family Medicine 11/27/18 06/07/20 Unknown, Notinfile PCP - General 06/08/20 01/09/24 Caitlin Mcclain ZOOGLER [address] [place] [address] PCP - General Nurse Practitioner 01/10/24 Jean Carlos Helms MD [address] [place] [address] 11/11/17 Edita Forbes MD [address] [facility] [address] [place] [address] Referring Physician Reproductive Endocrinology and Infertility 11/11/17 Tracy Marino MD PhD [address] [address] Referring Physician Obstetrics and Gynecology 07/24/17 documented as of this encounter
--- OUTSIDE RECORDS SUMMARY | 2024-04-30 22:24 | XMS_ITS | Clinical Summary ---
Author Organization [facility] Address [address] [place] [address]. 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
--- OUTSIDE RECORDS SUMMARY | 2024-04-30 22:24 | XMS_ITS | Referral Summary ---
Author Organization [facility] [employer] Address [address] [facility] [place] [address] Care Team Providers Care Certification Engineer Name Role Phone Gómez Hampton MD Primary Care Provider [phone] Source Comments [facility] [employer],non-owned Affiliates and Associated Physician Practices is amultiple site organization consisting of ambulatory clinics and hospital sitesin [place], [place], [place] and [place]. This disclosure is being madepursuant to the Care Everywhere program and may not contain all information available regarding this patient. Last updated 17.[facility] [employer] Allergies Active Allergy Reactions Criticality Noted Date [...] fluticasone propionate (FLONASE) 50 MCG/ACT nasal spray [place] 2 sprays into each nostril once daily [...] of Treatment Not on file Care Teams Certification Engineer Relationship Specialty Start Date End Date Gómez Hampton MD [address] [place] [address] PCP - General Family Medicine 07/22/18
--- OUTSIDE RECORDS SUMMARY | 2024-04-30 22:24 | XMS_ITS | Clinical Summary ---
Author Organization [facility] [place] [place] Address [address] [place] [address] Care Team Providers Care Photographic Lithographer Name Role Phone Gómez Hampton MD Primary Care Provider [phone] Allergies Active Allergy Reactions Criticality Noted Date [...] diagnosis of diabetes in children. According to [place] Diabetes Association (ADA) guidelines, hemoglobin A1c <7.0% represents optimal control in non- diabetic patients. Different metrics may apply to specific patient populations. Standards of Medical Care in Diabetes(ADA). ?? ESTIMATED AVERAGE GLUCOSE (MG/DL) 103 mg/dL [facility] ESTIMATED AVERAGE GLUCOSE (MMOL/L) 5.7 mmol/L [facility] Comment: Test Performed at: [facility] [address] [address] [place], [place] ??[address] Ludwig Cotter MD Blood 11/16/2022 7:24 AM CDT 11/20/2022 2:54 PM CDT us Maribeth Devries ANP CHEMISTRY ORDERABLES Final R esult [facility] [phone] [facility] [address] [place] [address] from Last 3 Months or Most Recently Relevant to Health Maintenance Insurance * Guarantor: [employer]) Account Type Relation to Patient Date of Phone Billing Address Corporate Employer ATTN: MANUEL MARINELLI [address] OPEN ACCESS * Guarantor: [employer] Account Type Relation to Patient Date of Phone Billing Address Corporate Employer ATTN: MANUEL MARINELLI [address] [address] Care Teams Photographic Lithographer Relationship Specialty Start Date End Date Gómez Hampton MD [address] [place] [id number] PCP - General Family Practice 11/20/22
--- NOTE | 2024-04-30 22:34 | ED_ITS ---
HPI - Abdominal Pain General Chief Complaint: Abdominal Pain Stated Complaint: active hernia Time Seen by Provider: 04/30/24 22:14 Source: patient Mode of arrival: ambulatory Limitations: no limitations History of Present Illness HPI narrative: This is a 43-year-old female who presents to the ED for chief complaint of abdominal pain over the past couple of days. Reports the pain is most intense over the epigastrium and right upper quadrant/right lateral abdomen. States that she has a known hiatal hernia and feels this is probably the reason for her pain. States that she gets a lot of reflux symptoms with this hernia. She thinks that the hernia is causing radiating pain to the right upper quadrant. Denies fevers, chills, nausea, vomiting, diarrhea, urinary symptoms. Related Data Home Medications ?Medication ?Instructions ?Recorded ?Confirmed ?Last Taken ?Type norgestimate 0.25 mg-ethinyl 1 tablet PO DAILY 01/31/19 04/29/24 11/11/20 History estradiol 35 mcg tablet (Sprintec (28)) aripiprazole 5 mg tablet 5 mg PO DAILY 03/02/21 04/29/24 Unknown History venlafaxine 225 mg tablet,extended 225 mg PO QAM 03/02/21 04/29/24 Unknown History release 24 hr bupropion HCl 150 mg 24 hr tablet, 150 mg PO DAILY 11/15/21 04/29/24 Unknown History extended release pjtytratpkb-kif-ugtgoszxm-hrb tablet PO 12/16/23 04/29/24 Unknown History 149-hyalur 500 mg-500 mg-66.7 mg tablet (Alqwppxvovo-Cquxkdedqzg-IOL (with antiox)) psyllium husk 0.4 gram capsule 0.4 g PO DAILY 04/02/24 04/29/24 Unknown History (Daily Fiber) Allergies Allergy/AdvReac Type Severity Reaction Status Date / Time divalproex sodium (From Allergy Intermediate Hives Verified 04/29/24 11:21 Depakote) nickel Allergy Intermediate Hives Verified 04/29/24 11:21 phenytoin (From Dilantin) Allergy Intermediate Hives Verified 04/29/24 11:21 tetrakis copper Allergy Intermediate Hives Verified 04/29/24 11:21 tetrafluoroborate Review of Systems 2 Review of Systems: All systems as dictated [facility]PI [facility] Past Medical History Medical History Tobacco use Steatorrhea Bloating Kellogg syndrome Tendinitis of right rotator cuff Impingement of right shoulder Tobacco dependence Nausea Nasal congestion Maxillary sinusitis, acute Cough Depression Diarrhea CONOR (generalized anxiety disorder) Migraine Asthma (07/01/15) GERD (gastroesophageal reflux disease) (07/01/15) Kidney calculi Surgical History Surgical History [place] teeth extracted H/O sinus surgery History of cholecystectomy (~12/2016) Family History Family History Father Depression Grandparent Asthma Lung cancer Grandparent Carcinoma of colon Heart disease Unknown Diabetes mellitus Kellogg syndrome Social History Social History Years smoked: 20 Smoking status: Current some day smoker Tobacco type: cigars Second hand tobacco smoke exposure: No Alcohol intake: current Drinks per week: 1 Alcohol use details: social Substance use: never Substance use type: does not use Lack of Transportation: No Lack of Food: Never True Current Housing: I Have Housing Concerned About Future Housing: No Difficulty Paying Gas/Electric Bills: No Difficulty Paying for Meds: No Currently Unemployed: No Education: Associate Degree Difficulty w/ Childcare or Family Care: No Living arrangements: alone Occupation/Education: occupation 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 HEAD: Normocephalic, atraumatic. EYES: PERRLA and EOMI. ENT: Nares clear, no rhinorrhea or epistaxis. Mucous membranes moist. Oropharynx without tonsillar hypertrophy exudate or other lesions. NECK: Supple. No adenopathy or masses. CHEST: No respiratory distress. Clear to auscultation. No wheezes rales or rhonchi HEART: Regular rate and rhythm. No murmur heard. Normal peripheral pulses. ABDOMEN: Mild tenderness to the right upper quadrant and epigastrium. Soft, otherwise nontender, nondistended, normal active bowel sounds. Negative flank tenderness bilaterally. No hernia or mass palpated. No overlying skin changes to the abdomen. MSK: Normal range of motion. No edema. SKIN: Warm, dry, no rash. NEURO: Alert and oriented x4. No focal deficits. PSYCH: Normal mood and affect. Course Vital Signs Vital signs: Vital Signs Temperature 98.0 F 04/30/24 20:46 Pulse Rate 75 04/30/24 20:46 Respiratory Rate 14 04/30/24 20:46 Blood Pressure 123/67 04/30/24 20:46 Pulse Oximetry 96 04/30/24 20:46 Temperature 98.0 F 04/30/24 20:46 Pulse Rate 77 05/01/24 00:40 Respiratory Rate 14 05/01/24 00:40 Blood Pressure 131/66 05/01/24 00:40 Pulse Oximetry 100 05/01/24 00:40 MDM - Abdominal Pain MDM Narrative Medical decision making narrative: This is a 43-year-old female who presents to the ED for chief complaint of right-sided abdominal pain attributed to hernia that is been known for several years. Vitals are normal. Exam is remarkable for the above. Lab work is unremarkable overall. Urinalysis negative. CT abdomen pelvis with IV contrast: Upper abdominal fat containing ventral hernia, slightly larger than in the prior study, without inflammatory changes. Simple appearing bilateral ovarian cysts. Otherwise, no acute abdominopelvic finding detected. Patient was given pain medications, antiemetics and Pepcid here. Presentation consistent with ventral hernia, however no signs of strangulation or incarceration today. Patient will be discharged in stable condition. Supportive measures discussed and return precautions given. Patient is understanding and agreeable with plan for discharge with PCP follow-up. Lab Data 04/30/24 20:58 04/30/24 20:58 Labs: Lab Results 04/30/24 04/30/24 04/30/24 Range/Units 20:58 21:04 21:06 WBC 6.8 (4.5-10.0) K/mm3 RBC 4.24 (4.2-5.4) M/mm3 Hgb 12.9 (12.0-15.0) g/dL Hct 40.0 (37.0-47.0) % MCV 94.3 (80-100) fl MCH 30.4 (26-34) pg MCHC 32.3 (32-36) g/dl RDW 14.6 H (11.5-14.5) % Plt Count 238 (150-375) k/mm3 MPV 11.1 H (7.4-10.4) fl Immature Gran % (Auto) 0.3 (0-0.5) % Neut % (Auto) 52.0 (45.5-73.1) % Lymph % (Auto) 36.4 (18.3-44.2) % [place] % (Auto) 8.5 (2.6-8.5) % Eos % (Auto) 2.1 (0-4.4) % Baso % (Auto) 0.7 (0.2-1.2) % Lymph # (Auto) 2.48 (0.9-3.2) K/mm3 [place] # (Auto) 0.6 (0.1-0.6) K/mm3 Eos # (Auto) 0.1 (0-0.3) K/mm3 Baso # (Auto) 0.1 (0.0-0.1) K/mm3 Abs Immat Gran (auto) 0.02 (0.00-0.031) K/mm3 Absolute Neuts (auto) 3.5 (1.3-6.7) K/mm3 Absolute Nucleated RBC 0.000 (0.0-0.012) K/mm3 Nucleated RBC % 0.0 (0.0-0.2) % Sodium 138 (137-145) mmol/L Potassium 4.1 (3.4-5.0) mmol/L Chloride 107 (98-107) mmol/L Carbon Dioxide 22 (22-30) mmol/L Anion Gap 9 (4-12) mmol/L BUN 12 (7-17) mg/dL Creatinine 0.70 (0.7-1.0) mg/dL Estim Creat Clear Calc 67 ml/min Estimated GFR > 60 (59 - ) Glucose 94 (65-110) mg/dL Calcium 9.2 (8.4-10.2) mg/dL Total Bilirubin 0.4 (0.2-1.3) mg/dL AST 26 (14-36) U/L ALT 29 (6-35) U/L Alkaline Phosphatase 67 (38-126) U/L Total Protein 7.0 (6.3-8.2) g/dL Albumin 3.6 (3.5-5.1) g/dL Lipase 67 (23-300) U/L Urine Color Yellow (Yellow) Urine Appearance Cloudy H (Clear) Urine pH 5.5 (5.0-9.0) Ur Specific [place] 1.025 (1.001-1.035) Urine Protein Negative (Negative) mg/dL Urine Glucose (UA) Negative (Negative) mg/dL Urine Ketones Trace H (Negative) mg/dL Ur Blood (Man) Negative (Negative) Urine Nitrate Negative (Negative) Urine Bilirubin Negative (Negative) Urine Urobilinogen 0.2 (<2.0) mg/dL Leukocyte Esterase Rfl Negative (Negative) OSCAR/UL Urine RBC 0-2 (0-2) /hpf Urine WBC 0-5 (0-3) /hpf Ur Squamous Epith Cells Moderate (Few) /hpf Urine Bacteria None seen /hpf Urine Casts 3-5 POC Urine HCG, Qual Negative (Negative) Imaging Data Radiologist's impression: ITS Impressions Abdomen/Pelvis CT 04/30/24 23:07 IMPRESSION: Upper abdominal fat containing ventral hernia, slightly larger than in the prior study, without inflammatory changes. Simple appearing bilateral ovarian cysts. Otherwise, no acute abdominopelvic finding detected. Discharge Plan Discharge Clinical Impression: Gastritis, Hernia, ventral Patient Disposition: Home, Self-Care Condition: Stable Instructions: Antibiotic Form Additional Instructions: Your exam and imaging today do show a an enlarging hernia, however does not causing any emergent findings. Please take omeprazole daily and follow-up with PCP as well as your surgeon. If you have any new or worsening symptoms please return to the ER for further evaluation. Patient Language: Indonesian Prescriptions: No Action norgestimate-ethinyl estradiol [Sprintec (28)] 0.25-35 mg-mcg Tablet 1 tablet PO DAILY psyllium husk [Daily Fiber] 0.4 gram capsule 0.4 g PO DAILY colestipol 1 gram tablet 1 g PO BID 30 Days Qty: 60 5RF venlafaxine 225 mg tablet extended release 24hr 225 mg PO QAM aripiprazole 5 mg tablet 5 mg PO DAILY bupropion HCl 150 mg tablet extended release 24 hr 150 mg PO DAILY lorazepam 1 mg tablet 1 mg PO DAILY PRN (Reason: anxiety) Qty: 3 0RF trazodone 100 mg tablet 50 mg .ROUTE .COMPLEX Qty: 30 2RF Rx Instructions: 50 mg; iztgqugh-jha-fdvsq-gpw514-xjfd [Uhvqtc-Yzwtu-FNW (with antiox)] 500-500-66.7 mg tablet PO propranolol 20 mg tablet 20 mg PO DAILY Qty: 30 2RF azelastine 137 mcg (0.1 %) spray,non-aerosol 2 spray intranasal Q12H Qty: 30 0RF Rx Instructions: administer into each nostril amoxicillin-pot clavulanate 875-125 mg tablet 1 tablet PO BID Qty: 20 0RF ciclopirox 8 % solution 1 applic topical DAILY 28 Days Qty: 6.6 3RF Rx Instructions: do not wash nails for 8hr post application;apply over previous coat;remove w/alcohol every 7 days dicyclomine 20 mg tablet 20 mg PO QID PRN (Reason: loose stools) Qty: 360 1RF Follow-up/Referrals: Caitlin Mcclain NP [Primary Care Provider] - Time of Disposition: 00:17
[2024-04-30] MEDS: ONDANSETRON INJ 4 MG/2 ML VIAL IV PUSH (22:45)
[2024-04-30] MEDS: FAMOTIDINE 20 MG/2 ML VIAL IV PUSH (22:45)
[2024-04-30] MEDS: HYDROmorphone HCL INJ (*CRX) 1 MG/ML SYR 0.5 MG IV PUSH (22:45)
[2024-05-01 00:40] VITALS: BP 131/66; PULSE 77; RESP 14; O2SAT 100
== END 2024-05-01 00:41 | disposition home or self-care (01) ==
PROVIDERS: Emergency Provider Physician Assistant; PCP Nurse Practitioner Family
DX: K29.70 Gastritis, unspecified, without bleeding (principal); K43.9 Ventral hernia without obstruction or gangrene; J45.909 Unspecified asthma, uncomplicated; K21.9 Gastro-esophageal reflux disease without esophagitis; F32.A Depression, unspecified; F41.1 Generalized anxiety disorder; F17.290 Nicotine dependence, other tobacco product, uncomplicated; Z87.442 Personal history of urinary calculi; Z15.09 Genetic susceptibility to other malignant neoplasm; Z79.3 Long term (current) use of hormonal contraceptives; Z79.899 Other long term (current) drug therapy; N83.292 Other ovarian cyst, left side; N83.291 Other ovarian cyst, right side
CPT/HCPCS: 36415; 74177; 80053; 81001; 81025; 83690; 85025; 96374; 96375; 99284; J1171; J2405; Q9967

== ENCOUNTER 2024-07-08 15:36 | Outpatient (CLI) | payer SELFPAY ==
--- OUTSIDE RECORDS SUMMARY | 2024-07-08 16:50 | XMS_ITS | Clinical Summary ---
Author Organization [facility] [employer] Address [address] [place] [address] Care Team Providers Care Fmd Teacher Name Role Phone Gómez Hampton MD Primary Care Provider [phone] Source Comments [facility] [employer],non-owned Affiliates and Associated Physician Practices is amultiple site organization consisting of ambulatory clinics and hospital sitesin [place], [place], [place] and [place]. This disclosure is being madepursuant to the Care Everywhere program and may not contain all information available regarding this patient. Last updated 17.[facility] [employer] [facility] Allergies Active Allergy Reactions Criticality Noted Date [...] fluticasone propionate (FLONASE) 50 MCG/ACT nasal spray [place] 2 sprays into each nostril once daily [...] 100 01/29/2019 2:05 PM CDT Temperature 37.2 C (98.9 F) 01/29/2019 2:05 PM CDT Respiratory Rate 16 01/29/2019 2:05 PM CDT [...] of 2 - PCV) 12/20/1999 COVID-19 VACCINE ( - 2023-2 5 season) 2023 DEPRESSION SCREENING 04/01/2024 INFLUENZA VACCINE (Season Ended) 2024 01/06/2018, 01/11/2017 ZOSTER VACCINE (1 of 2) 2030 HIB VACCINE Aged Out No longer eligi ble based on patient's age to complete this topic HPV VACCINE Aged Out No longer eligi ble based on patient's age to complete this topic MENINGOCOCCAL (Group B) VACCINE SHARED DECISION-MAKING Aged Out No longer eligible based on patient's age to complete this topic MENINGOCOCCAL GROUPS A/C/Y/W VACCINE Aged Out No longer eligible b ased on patient's age to complete this topic Care Teams Fmd Teacher Relationship Specialty Start Date End Date Gómez Hampton MD [address] [place] [id number] PCP - General Family Medicine 07/22/18
--- OUTSIDE RECORDS SUMMARY | 2024-07-08 16:50 | XMS_ITS | Encounter Summary ---
Author Organization [facility] Address [address] [place] [address] Phone Care Team Providers Care Community Services Manager Name Role Phone Jean Carlos Helms MD Primary Care Provider [phone] No, Physician Primary Care Provider [phone] Jean Carlos Helms MD Unavailable [phone] Edita Forbes MD Unavailable Jean Carlos Helms MD Primary Care Provider [phone] Miscellaneous, Not In File Primary Care Provider Unavailable Miscellaneous, Not In File Primary Care Provider Unavailable Gómez Hampton MD Primary Care Provider [phone] Tracy Marino MD PhD Unavailable [phone] Unknown, Notinfile Primary Care Provider Unavail able Caitlin Mcclain NP Primary Care Provider [phone] Encounter Details Date Type Department Care Team (Late st Contact Info) Description 07/24/2017 Orders Only [facility] ProviderNeil MD [facility] [place] [address] Social History Tobacco Use Types Packs/Day Years Used Date Smoking Tobacco: Never Assessed Comments Unknown Sex and Gender Information Value Date Recorded Sex Assigned at Not on file 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 Sex 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 Gender Identity Not on file Sexual Orientation [...] on filedocumented in this encounter Care Teams Community Services Manager Relationship Specialty Start Date End Date Jean Carlos Helms MD [address] [place] [address] PCP - General 05/19/16 11/10/17 No, Physician PCP - General 11/11/17 11/28/17 Jean Carlos Helms MD [address] [place] [address] PCP - General 11/29/17 11/20/18 Miscellaneous, Not In File PCP - General 11/24/18 11/26/18 Miscellaneous, Not In File PCP - General 11/21/18 11/23/18 Gómez Hampton MD [address] [place] [address] PCP - General Family Medicine 11/27/18 06/07/20 Unknown, Notinfile PCP - General 06/08/20 01/09/24 Caitlin Mcclain MATERIAL COORDINATOR [address] [place] [address] PCP - General Nurse Practitioner 01/10/24 Jean Carlos Helms MD [address] [place] [address] 11/11/17 Edita Forbes MD [address] [facility] [address] [place] [address] Referring Physician Reproductive Endocrinology and Infertility 11/11/17 Tracy Marino MD PhD [address] [address] Referring Physician Obstetrics and Gynecology 07/24/17 documented as of this encounter
--- OUTSIDE RECORDS SUMMARY | 2024-07-08 16:50 | XMS_ITS | Clinical Summary ---
Author Organization 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 Gender Identity Not on file Sexual Orientation Not on file Plan of Treatment Health Maintenance Due Date Last Done Comments Annual Physical 12/20/1983 Hepatitis C 1998 Hepatitis B Vaccines (1 of 3 - 19+ 3-dose series) 12/20/1999 Cervical Cancer Screening Pa p with HPV Testing (Age 30 to 64) Every 5 Years 2010 COVID-19 Vaccine (2023-2 5 season) 2023 Mammogram Screening 12/02/2023 12/01/2021, 11/11/2017, 11/05/2017 Cervical Cancer Screening Pa p Smear (Age 30 to 64) Every 3 Years 01/26/2027 01/27/2024 Cervical Cancer Screening wi th HPV 01/26/2027 DTaP, Tdap and Td Vaccines ( 3 - Td or Tdap) 02/20/2028 02/19/2018, 01/19/2013 [...] 64 Years) Aged Out No longer eligible b ased on patient's age to complete this topic RSV Immunizations Under 20 Months Aged Out No longer eligible b ased on patient's age to complete this topic
--- OUTSIDE RECORDS SUMMARY | 2024-07-08 16:50 | XMS_ITS | Clinical Summary ---
Author Organization [facility] [employer] [place] Address [address] [place] [address] Care Team Providers Care Cook Vacuum Kettle Name Role Phone Gómez Hampton MD Primary Care Provider [phone] Allergies Active Allergy Reactions Criticality Noted Date [...] 98 09/01/2021 1:04 PM CDT Temperature 36.6 C (97.9 F) 09/01/2021 1:04 PM CDT Respiratory Rate 18 09/01/2021 1:04 PM CDT Oxygen Saturation 97% 09/01/2021 1:04 PM CDT Inhaled Oxygen Concentration - - Weight 145.2 kg (320 lb) 11/16/2022 7:39 AM CDT Height 170.2 cm (5' 7 ) 11/16/2022 7:39 AM CDT Body Mass Index 50.12 11/16/2022 7:39 AM CDT Plan of Treatment Health Maintenance Due Date Last Done Comments PNEUMOCOCCAL VACCINE 0-49 YEARS (1 of 2 - PCV) 1986 HEPATITIS B VACCINES (1 of 3 - 19+ 3-dose series) 12/20/1999 HPV/Cotest (21-29) 2001 PAP SMEAR 2001 HPV/Cotest (30-65) 2010 CERVICAL CANCER SCREENING 10/30/2020 PAP SMEAR 10/30/2020 10/30/2017 (Prev iously completed) BREAST CANCER SCREENING 12/01/2022 12/02/19 22, 12/01/2021, 11/11/2017, Additional history exists INFLUENZA VACCINE (#1) 2023 , 12/28/2019, 01/06/2018, [...] screening for the presence of diabetes: <5.7% Consistent with the absence of diabetes 5.7-6.4% Consistent with increased risk for diabetes (prediabetes) > or =6.5% Consistent with diabetes This assay result is consistent with a decreased risk of diabetes. Currently, no consensus exists regarding use of hemoglobin A1c for diagnosis of diabetes in children. According to [place] Diabetes Association (ADA) guidelines, hemoglobin A1c <7.0% represents optimal control in non- diabetic patients. Different metrics may apply to specific patient populations. Standards of Medical Care in Diabetes(ADA). ESTIMATED AVERAGE GLUCOSE (MG/DL) 103 mg/dL [facility] ESTIMATED AVERAGE GLUCOSE (MMOL/L) 5.7 mmol/L [facility] Comment: Test Performed at: [facility] [address] [place] [address] Ludwig Cotter MD Blood 11/16/2022 7:24 AM CDT 11/20/2022 2:54 PM CDT us Maribeth Devries [facility] CHEMISTRY ORDERABLES Final R esult [facility] [phone] [facility] [address] [place] [address] from Last 3 Months or Most Recently Relevant to Health Maintenance Insurance OPEN ACCESS * Guarantor: [email or web address] Account Type Relation to Patient Date of Phone Billing Address Corporate Employer ATTN: MANUEL MARINELLI [address] [address] Care Teams Cook Vacuum Kettle Relationship Specialty Start Date End Date Gómez Hampton MD [address] [place] [address] PCP - General Family Practice 11/20/22
--- OUTSIDE RECORDS SUMMARY | 2024-07-08 16:50 | XMS_ITS | Clinical Summary ---
Author Organization [facility] Address [address] [place] [address] Care Team Providers Care Composition Weatherboard Installer Name Role Phone Jean Carlos Helms MD Unavailable [phone] Edita Forbes MD Unavailable [phone] [facility], Tracy Meier MD PhD Unavailable [phone] Caitlin Mcclain NP Primary Care Provider [phone] Allergies Active Allergy Reactions Criticality Noted Date Comments Copper Other (See comments),Rash Medium 02/19/2018 Reaction: Other Reaction: OTHER, Cupric Sulfate (Bulk) Blisters High Phenytoin Rash [...] total) by mouth nightly 3 Active rizatriptan MERCHANDISE EXECUTIVE (MAXALT-MERCHANDISE EXECUTIVE) 10 mg disintegrating tablet TAKE 1 TAB [...] (12/16/2019): Added automatically from request for surgery [id number] Current moderate episode of major depressive disorder without prior episode 06/19/2018 Mild intermittent asthma without complication Encounter for screening colonoscopy 09/25/2017 Overview (09/25/2017): Added automatically from request for surgery [id number] Tobacco use 09/25/2017 PMS2-related Kellogg syndrome (HNPCC4) [...] Slightly elevated based on recent data from [employer]. Will refer for mammogram and risk assessment with our breast surgeons. Obesity (BMI 35.0-39.9 without comorbidity) 05/30 Assessment & Plan (09/04/2017 2:27 PM CDT): Using an jaya called [employer] Run Couch to 5K. Will get back to emr trainer at gym. Discussed [employer] jaya as well. Has a [employer] watch. Discussed importance lifestyle for decreasing cancer risk. 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 Gender Identity Not on file Sexual Orientation Not on file Obstetrics History Para Term AB IAB SAB Ectopic Multiple Livin g Live Births 0 0 0 0 0 0 0 0 0 0 0 Last Filed Vital Signs Vital Sign Reading Time Taken Comments Blood Pressure 140/95 01/27/2024 1:03 PM CDT Pulse 109 01/27/2024 1:03 PM CDT Temperature 36.3 C (97.3 F) 01/27/2024 1:03 PM CDT Respiratory Rate 18 01/27/2024 1:03 PM CDT Oxygen Saturation 98% 01/27/2024 1:03 PM CDT Inhaled Oxygen Concentration - - Weight 144.4 kg (318 lb 6.4 oz) 01/27/2024 1:03 PM CDT Height 170.2 cm (5' 7.01 ) 04/18/2023 1 0:32 AM SHIRT LINE OPERATOR Body Mass Index 49.86 04/18/2023 10:32 AM SHIRT LINE OPERATOR Plan of Treatment Scheduled Procedures Name Priority Associated Diagnoses Date/Ti me COLONOSCOPY Open Access Kellogg syndrome Health care maintenance Health Maintenance Due Date Last Done Comments Depression Screening 1980 Hepatitis C Screening 1980 Varicella Vaccines (1 of 2 - 13+ 2-dose series) 1993 Hepatitis B Screening 1998 Regular Well Visit/Exam 18-64 1998 Pneumococcal vaccine <65 (1 of 2 - PCV) 12/20/1999 Breast Cancer Screening-Mammogram 12/01/2022 12/01/2021, 12/01/2021, 11/11/2017, Additional history exists Influenza Vaccine (Season Ended) 2024 01/30/2022, 12/28/2019, 01/06/2018, Additional history exists Cervical [...] Genotyping (Molecular component) (01/27/2024 4:47 PM CDT) HPV HR 16 Not Detected Not Detected [facility] HPV HR 18 Not Detected Not Detected PAMELA [facility] HPV HR Non 16/18 Not Detected Not Detected [facility] Comment: Interpretive Data Nucleic acid amplification for detection of high-risk Human Papilloma virus (HPV) is performed by the Leticia Lisa 6800 HPV test. This assay specifically detects HPV-16 and HPV-18 genotypes. The following HPV genotypes are detected as high-risk HPV: HPV-31, 33, 35, ,39, 45, 51, 52, 56, 58, 59, 66, and 68. This assay has been approved by the [place] Food and Drug Administration for detection of HPV in cervical specimens collected by a physician using an endocervical brush/spatula or cervical broom and placed in the ThinPrep Pap Test PreservCyt collection containers. The performance characteristics of this test have been verified by the [facility] Molecular Infectious Disease laboratory. Correlate with separately reported cytology results, as applicable. Interpretive data last revised 22 Endocervical 01/27/2024 4:47 PM CDT 01/28/2024 3:11 PM CDT Narrative PAMELA CARRINGTON - 01/29/2024 4:02 AM CDT Clinical history and diagnosis->Normal pap history Testing type->Screening Last menstrual period (date if known)->01/13/24 Stephy Manning NP LAB BODY FLUIDS AND STOOLS O RDERABLES Final Result [facility] Department [place] [address] [facility] * SCREENING MAMMOGRAM BILATERAL W YONY (12/01/2021 1:31 PM CDT) Anatomical Region Laterality Modality Breast Bilateral Mammography Narrative 12/05/2021 1:04 PM CDT Mammogram Technique: Bilateral Digital Breast Tomosynthesis, Bilateral C-view 2D Screening mammogram. Views obtained: bilateral craniocaudal and bilateral mediolateral oblique. Computer Aided Detection was performed. Mammogram Findings: The present examination has been compared to prior imaging studies performed at [facility] on 11/05/2017 and 11/11/2017. There are scattered areas of fibroglandular density. There is no suspicious abnormality in either breast. Impression: There is no mammographic evidence of malignancy. Annual screening mammography is recommended. OVERALL FINAL ASSESSMENT: BI-RADS CATEGORY 1: Negative. Procedure Note Akua Castillo MD - 12/05/2021 Mammogram Technique: Bilateral Digital Breast Tomosynthesis, Bilateral C-view 2D Screening mammogram. Views obtained: bilateral craniocaudal and bilateral mediolateral oblique. Computer Aided Detection was performed. Mammogram Findings: The present examination has been compared to prior imaging studies performed at [facility] on 11/05/2017 and 11/11/2017. There are scattered areas of fibroglandular density. There is no suspicious abnormality in either breast. Impression: There is no mammographic evidence of malignancy. Annual screening mammography is recommended. OVERALL FINAL ASSESSMENT: BI-RADS CATEGORY 1: Negative. Candido Arreguin MD IMG MAMMO PROCEDURES Fin al Result from Last 3 Months or Most Recently Relevant to Health Maintenance Insurance [place] [address] [facility] AETNA IFP EXCHANGE Advance Directives For more information, please contact: [phone] * Full Code (Latest Code Status on File) Date Activated Date Inactivated Comments 03/04/2020 8:32 AM 03/04/2020 3:21 PM * Full Code Date Activated Date Inactivated Comments 11/29/2017 8:28 AM 11/29/2017 12:44 PM Care Teams Composition Weatherboard Installer Relationship Specialty Start Date End Date Caitlin Mcclain NP [address] [place] [address] PCP - General Nurse Practitioner 01/10/24 Jean Carlos Helms MD [address] [place] [address] 11/11/17 Edita Forbes MD [address] [place] [address] Referring Physician Reproductive Endocrinology and Infertility 11/11/17 Tracy Marino MD PhD [address] [place] [address] Referring Physician Obstetrics and Gynecology 07/24/17
--- OUTSIDE RECORDS SUMMARY | 2024-07-08 16:50 | XMS_ITS | Referral Summary ---
Author Organization [facility] Address [address] [place] [address] Care Team Providers Care Sales Mgr Name Role Phone Jean Carlos Helms MD Unavailable [phone] Edita Forbes MD Unavailable [phone] [facility], Tracy Meier MD PhD Unavailable [phone] Caitlin Mcclain NP Primary Care Provider [phone] Allergies Active Allergy Reactions Criticality Noted Date [...] total) by mouth nightly 3 Active rizatriptan STABILIZER OPERATOR (MAXALT-STABILIZER OPERATOR) 10 mg disintegrating tablet TAKE 1 TAB [...] (12/16/2019): Added automatically from request for surgery [id number] Current moderate episode of major depressive disorder without prior episode 06/19/2018 Mild intermittent asthma without complication Encounter for screening colonoscopy 09/25/2017 Overview (09/25/2017): Added automatically from request for surgery [id number] Tobacco use 09/25/2017 PMS2-related Kellogg syndrome (HNPCC4) [...] Slightly elevated based on recent data from [facility]. Will refer for mammogram and risk assessment with our breast surgeons. Obesity (BMI 35.0-39.9 without comorbidity) 05/30 Assessment & Plan (09/04/2017 2:27 PM CDT): Using an jaya called [employer] Run Couch to 5K. Will get back to hop strainer at gym. Discussed [employer] jaya as well. Has a [employer] watch. Discussed importance lifestyle for decreasing cancer [...] on file Legal Sex Female 7:51 PM CUSTOMIZER Gender Identity Not on file Sexual Orientation [...] (5' 7.01 ) 04/18/2023 1 0:32 AM CUSTOMIZER Body Mass Index 49.86 04/18/2023 10:32 AM CUSTOMIZER Plan of Treatment Scheduled Procedures Name Priority [...] HPV HR 16 Not Detected Not Detected [facility] HPV HR 18 Not Detected Not Detected [facility] HPV HR Non 16/18 Not Detected Not Detected [facility] Comment: Interpretive Data Nucleic acid amplification [...] this test have been verified by the [facility] Molecular Infectious Disease laboratory. Correlate with separately reported cytology results, as applicable. Interpretive data last revised 22 Endocervical 01/27/2024 4:47 PM CDT 01/28/2024 3:11 PM CDT Narrative PAMELA CARRINGTON - 01/29/2024 4:02 AM CDT Clinical history and diagnosis->Normal pap history Testing type->Screening Last menstrual period (date if known)->01/13/24 Stephy Manning NP LAB BODY FLUIDS AND STOOLS O RDERABLES Final Result [facility] Department [place] [address] [facility] * SCREENING MAMMOGRAM BILATERAL W YONY (12/01/2021 1:31 PM CDT) Anatomical Region Laterality Modality Breast Bilateral Mammography Narrative 12/05/2021 1:04 PM CDT Mammogram Technique: Bilateral Digital Breast Tomosynthesis, Bilateral C-view 2D Screening mammogram. Views obtained: bilateral craniocaudal and bilateral mediolateral oblique. Computer Aided Detection was performed. Mammogram Findings: The present examination has been compared to prior imaging studies performed at [facility] on 11/05/2017 and 11/11/2017. There are [...] compared to prior imaging studies performed at [facility] on 11/05/2017 and 11/11/2017. There are scattered areas of fibroglandular density. There is no suspicious abnormality in either breast. Impression: There is no mammographic evidence of malignancy. Annual screening mammography is recommended. OVERALL FINAL ASSESSMENT: BI-RADS CATEGORY 1: Negative. Candido Arreguin MD IMG MAMMO PROCEDURES Fin al Result from Last 3 Months or Most Recently Relevant to Health Maintenance Insurance [facility]PPO Address: [facility] [address] [facility] H[facility]/PPO Address: [address] [address] [place] [address] [facility] AETNA IFP EXCHANGE Advance Directives For more information, please contact: [phone] * Full Code (Latest Code Status on File) Date Activated Date Inactivated Comments 03/04/2020 8:32 AM 03/04/2020 3:21 PM * Full Code Date Activated Date Inactivated Comments 11/29/2017 8:28 AM 11/29/2017 12:44 PM Care Teams Sales Mgr Relationship Specialty Start Date End Date Caitlin Mcclain NP [address] [place] [address] PCP - General Nurse Practitioner 01/10/24 Jean Carlos Helms MD [address] [place] [address] 11/11/17 Edita Forbes MD [address] [address] Referring Physician Reproductive Endocrinology and Infertility 11/11/17 Tracy Marino MD PhD [address] [address] Referring Physician Obstetrics and Gynecology 07/24/17
== END 2024-07-08 15:37 | disposition home or self-care (01) ==
PROVIDERS: PCP Nurse Practitioner Family; Visit Provider Nurse Practitioner Family
DX: K86.81 Exocrine pancreatic insufficiency (principal); R19.5 Other fecal abnormalities
CPT/HCPCS: 82653; 82705; 83993

== ENCOUNTER 2024-08-14 | Day surgery (SDC) | payer BC, SELFPAY ==
[2024-08-10 12:42] VITALS: BMI 50.9
[2024-08-14 06:57] VITALS: BP 131/85; PULSE 95; RESP 16; TEMP 36.1; O2SAT 98
[2024-08-14 06:58] VITALS: BMI 48.7
[2024-08-14 07:03] LABS: BEDSIDEPREGUCG Negative (Negative)
[2024-08-14] MEDS: LACTATED RINGERS 1,000 ML 150 ML IV CONT (07:21)
--- NOTE | 2024-08-14 07:57 | WPDANESEPPF ---
Anes - Initial Pre Proc Eval Procedure: Operation Date: 08/14/24 08:00 Proposed Procedures p Esophagogastroduodenoscopy & Colonoscopy - Nehemias Dinh MD Date/Time: 08/14/24 07:57 Surgeon: Nehemias Dinh MD Pre Op Diagnosis: Gastro-esophageal reflux disease without esophagit Patient Data Age: 43 Gender: F Height: 1.7 m Weight: 141.2 kg Last Vital Signs Temp 36.1 C L 08/14/24 06:57 Pulse 95 08/14/24 06:57 Resp 16 08/14/24 06:57 BP 131/85 08/14/24 06:57 Pulse Ox 98 08/14/24 06:57 O2 Del Method Room Air 08/14/24 06:57 Allergies Allergy/AdvReac Type Severity Reaction Status Date / Time divalproex sodium (From Allergy Intermediate Hives Verified 08/14/24 06:53 Depakote) nickel Allergy Intermediate Hives Verified 08/14/24 06:53 phenytoin (From Dilantin) Allergy Intermediate Hives Verified 08/14/24 06:53 tetrakis copper Allergy Intermediate Hives Verified 08/14/24 06:53 tetrafluoroborate Home Medications Medication Instructions Recorded Confirmed Type norgestimate 0.25 mg-ethinyl 1 tablet PO DAILY 01/31/19 08/14/24 History estradiol 0.035 mg tablet (Sprintec (28)) aripiprazole 5 mg tablet 5 mg PO DAILY 03/02/21 08/14/24 History venlafaxine 225 mg tablet,extended 225 mg PO QAM 03/02/21 08/14/24 History release 24 hr bupropion HCl 150 mg 24 hr tablet, 150 mg PO DAILY 11/15/21 08/14/24 History extended release trazodone 100 mg tablet 50 mg (1/2 x 100 mg) .Route 12/14/21 08/14/24 Rx .COMPLEX #30 tabs lorazepam 1 mg tablet 1 mg PO DAILY PRN anxiety #3 tabs 01/02/23 08/10/24 Rx rfqplneruqa-lit-roqqpoihd-hrb tablet PO 12/16/23 07/20/24 History 149-hyalur 500 mg-500 mg-66.7 mg tablet (Whqfxfvggxu-Ahtdbcbrvai-WIM (with antiox)) propranolol 20 mg tablet 20 mg PO DAILY #30 tabs 12/23/23 08/14/24 Rx colestipol 1 gram tablet 1 g PO BID 1 month #60 tabs 04/02/24 08/14/24 Rx psyllium husk 0.4 gram capsule 0.4 g PO DAILY 04/02/24 08/14/24 History (Daily Fiber) ubidecarenone-omega 3-vit E 25 1 cap PO DAILY 07/20/24 08/14/24 History mg-150 (90-60) mg-200 unit capsule (Co E-01-Iyupntn E-Fish Oil) sodium,potassium,mag sulfates 17.5 See Rx Instructions PO .COMPLEX 08/07/24 08/14/24 Rx gram-3.13 gram-1.6 gram oral soln #354 mL (Suprep Bowel Prep Kit) Laboratory Tests 08/14/24 06:57 POC Urine HCG, Qual Negative (Negative) Patient hx anesthesia problems: none Family hx anesthesia problems: none Results Review: All pre-operative results and documents have been reviewed as part of the pre-operative evaluation. [facility] Past Medical History Medical History Folate deficiency Vitamin D deficiency Family history of colon cancer Personal history of colon polyps, unspecified Tobacco use Steatorrhea Bloating Kellogg syndrome Tendinitis of right rotator cuff Impingement of right shoulder Tobacco dependence Nausea Nasal congestion Maxillary sinusitis, acute Cough Depression Diarrhea CONOR (generalized anxiety disorder) Migraine Asthma (07/01/15) GERD (gastroesophageal reflux disease) (07/01/15) Kidney calculi Surgical History Surgical History [place] teeth extracted H/O sinus surgery History of cholecystectomy (~12/2016) Family History Family History Father Depression Grandparent Asthma Lung cancer Grandparent Carcinoma of colon Heart disease Unknown Diabetes mellitus Kellogg syndrome Social History Social History Years smoked: 20 Smoking status: Current every day smoker Tobacco type: cigars Second hand tobacco smoke exposure: No Alcohol intake: current Drinks per week: 2 Alcohol use details: social Substance use: never Substance use type: does not use Do You Feel Safe in your Home?: Yes Lack of Transportation: No Lack of Food: Never True Current Housing: I Have Housing Concerned About Future Housing: No Difficulty Paying Gas/Electric Bills: No Difficulty Paying for Meds: No Currently Unemployed: No Education: Associate Degree Difficulty w/ Childcare or Family Care: No Living arrangements: with family Occupation/Education: occupation 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 Informed Consent: The patient's anesthetic plan and its attendant risks and benefits were discussed with the patient/family/POA. Questions were solicited and answers provided to the satisfaction of the patient/family/POA.
--- NOTE | 2024-08-14 08:03 | WPDHPUPDATE1 ---
History and Physical Update Update Date/Time: 08/14/24 08:03 History and Physical has been reviewed, including an updated exam of the patient. There are NO changes in the patient's condition. Risks, benefits, and alternatives have been discussed and questions answered. Patient agrees to proceed with procedure.
[2024-08-14 08:28] VITALS: BP 106/61; PULSE 81; RESP 16; O2SAT 95
[2024-08-14 08:38] VITALS: BP 116/75; PULSE 79; RESP 16; O2SAT 100
[2024-08-14 08:57] VITALS: BP 120/73; PULSE 68; RESP 16; O2SAT 100
== END 2024-08-14 09:06 | disposition home or self-care (01) ==
PROVIDERS: Anesthesiology; PCP Nurse Practitioner Family; Visit Provider Internal Medicine Gastroenterology
PROC: 0DJ08ZZ Inspection of Upper Intestinal Tract, Via Natural or Artificial Opening Endoscopic (ICD-10-PCS; CPT 45378; principal; 2024-08-14 08:00)
DX: K21.9 Gastro-esophageal reflux disease without esophagitis (principal); K29.70 Gastritis, unspecified, without bleeding; F41.9 Anxiety disorder, unspecified; F32.A Depression, unspecified; J45.909 Unspecified asthma, uncomplicated; E53.8 Deficiency of other specified B group vitamins; E55.9 Vitamin D deficiency, unspecified; F17.290 Nicotine dependence, other tobacco product, uncomplicated; E66.01 Morbid (severe) obesity due to excess calories; Z68.42 Body mass index [BMI] 45.0-49.9, adult; Z98.890 Other specified postprocedural states; Z90.49 Acquired absence of other specified parts of digestive tract; Z86.0100 Personal history of colon polyps, unspecified; Z15.09 Genetic susceptibility to other malignant neoplasm; Z87.442 Personal history of urinary calculi; Z80.0 Family history of malignant neoplasm of digestive organs; Z80.49 Family history of malignant neoplasm of other genital organs; Z80.1 Family history of malignant neoplasm of trachea, bronchus and lung; Z82.49 Family history of ischemic heart disease and other diseases of the circulatory system
CPT/HCPCS: 43239; 45378; 88305; J7120

== ENCOUNTER 2025-01-29 15:35 | Emergency (ER) | payer SELFPAY ==
--- NOTE | ~2025-01-29 | XR_ITS ---
EXAMINATION: XR pelvis 1-2V, 01/29/2025 16:15 CDT HISTORY: Fall, Lt. side pelvic pain COMPARISON: No comparisons available. Findings: No acute fracture or malalignment. No significant degenerative changes. Soft tissues unremarkable. Impression: No acute fracture or malalignment. Reviewed, dictated and finalized at location P. Impression: No acute fracture or malalignment.
--- NOTE | ~2025-01-29 | XR_ITS ---
EXAMINATION: XR knee LT 3V, 01/29/2025 16:15 CDT HISTORY: Fall, Lt. knee pain/ limited ROM COMPARISON: No comparisons available. Findings: No acute fracture or malalignment. No significant degenerative changes. Soft tissues unremarkable. Impression: No acute fracture or malalignment. Reviewed, dictated and finalized at location P. Impression: No acute fracture or malalignment.
[2025-01-29 15:35] VITALS: BP 128/89; PULSE 88; RESP 16; TEMP 36.4; O2SAT 98
--- OUTSIDE RECORDS SUMMARY | 2025-01-29 15:43 | XMS_ITS | Patient Health Record ---
Author Organization [facility] [employer] Address [address] [facility] [address] [place] [address] Care Team Providers Care Iron Erector Name Role Phone Phong Story Unavailable [phone] Reason For Referral No Information Medications Medication SIG (Take, Route, Frequency, Duration) Notes Start Date End Date Status Azithromycin 250 MG Tablet Oral Active ProAir HFA 108 (90 Base) MCG/ACT Aerosol Solution Inhalation Active Amoxicillin-Pot Clavulanate 875-125 MG Tablet Oral Active traZODone HCl 100 MG Tablet Oral Active Triamcinolone Acetonide 0.10% Ointment External Active Tamsulosin HCl 0.4 MG Capsule Oral Active Doxycycline Hyclate 100 MG Tablet Oral Active traZODone HCl 50 MG Tablet Oral Active Escitalopram Oxalate 20 MG Tablet Oral Active predniSONE 20 MG Tablet Oral Active Sulfamethoxazole-Trime thoprim 800-160 MG Tablet Oral Active Montelukast Sodium 10 MG Tablet Oral Active Nystatin 123748 UNIT/ML Suspension Mouth/Throat Active hydrOXYzine HCl 25 MG Tablet Oral Active levoFLOXacin 500 MG Tablet Oral Active Escitalopram Oxalate 10 MG Tablet Oral Active HYDROcodone-Acetaminop hen 5-325 MG Tablet Oral Active Benzonatate 200 MG Capsule Oral Active predniSONE 10 MG Tablet Oral Active Clobetasol Propionate 0.05% Cream External Active Ergocalciferol 1.25 MG (10870 UT) Capsule Oral Active Sprintec 28 0.25-35 MG-MCG Tablet Oral Active Fluticasone Propionate Diskus 50 MCG/ACT Aerosol Powder Breath Activated Inhalation *Reorder from [employer] for eRx and Interaction Alerts* Active Plan Of Treatment No Information Insurance Providers Payer Name Payer Address Payer Phone Subscriber Number Group Number Insured Name Patient Relationship to Insured Coverage Start Date Coverage End Date Umr [address] [address] [place] [address] [id number] NGOZI OLIVARES Self - patient is the insured
--- OUTSIDE RECORDS SUMMARY | 2025-01-29 15:43 | XMS_ITS | Clinical Summary ---
Author Organization [facility] [employer] Address [address] [facility] [place] [address] Care Team Providers Care Patient Placement Coordinator Name Role Phone Gómez Hampton MD Primary Care Provider [phone] Source Comments [facility] [employer],non-owned Affiliates and Associated Physician Practices is amultiple site organization consisting of ambulatory clinics and hospital sitesin [place], [place] and [place]. This disclosure is being madepursuant to the Care Everywhere program and may not contain all information available regarding this patient. Last updated 17.[facility] [employer] Allergies Active Allergy Reactions Criticality Noted Date Comments Copper Rash Medium 08/21/2018 bleeding Phenytoin Rash Medium 06/10/2018 Nickel Rash Medium 08/21/2018 Medications * Be aware that medications may not be up to date on this document. Alwaysverify current medications with the patient. escitalopram (LEXAPRO) 10 MG tablet Take 20 mg by mouth once daily Active hydrOXYzine hcl (ATARAX) 25 MG tablet Take 25 mg by mouth 4 times daily as needed for Itching Active Albuterol Sulfate (VENTOLIN HFA IN) Active Cetirizine HCl (ZYRTEC ALLERGY PO) Active fluticasone propionate (FLONASE) 50 MCG/ACT nasal spray [place] 2 sprays into each nostril once daily 1 bottles 9 Active Additional Information Patient not taking.Reported on 01/29/2019 triamcinolone acetonide (KENALOG) 0.1 % ointment Apply to affected area 3 times daily as needed Thin layer, avoid face and genital area 30 g 9 Active Additional Information Patient not taking.Reported on [...] Tobacco: Some Days Cigars Smokeless Tobacco: Never Comments No Sex and Gender Information Value Date Recorded Sex Assigned at Not on file Legal Sex Female 10:58 AM CDT Gender Identity Not on file [...] 2:05 PM CDT Height 170.2 cm (5' 7) 01/29/2019 2:05 PM CDT Body Mass Index 45.11 01/29/2019 2:05 PM CDT Plan of Treatment Health Maintenance Due Date Last Done Comments LIPID TESTING 1980 MAMMOGRAM 1980 HIV SCREENING 12/20/1995 HEPATITIS C SCREENING 12/15/1998 DTAP/TDAP/TD VACCINES (1 - Tdap) 12/20/1999 HEPATITIS B VACCINE (1 of 3 - 19+ 3-dose series) 12/20/1999 PNEUMOCOCCAL VACCINE (1 of 2 - PCV) 12/20/1999 PAP SMEAR 2001 HPV VACCINE (1 - 3-dose SCDM series) 12/20/2007 DEPRESSION SCREENING 04/01/2024 COVID-19 VACCINE (1 - 2023-2 5 season) 2024 INFLUENZA VACCINE (#1) 2024 8, 01/11/2017 ZOSTER VACCINE (1 of 2) 2030 HIB VACCINE Aged Out No longer eligi ble based on patient's age to complete this topic MENINGOCOCCAL (Group B) VACCINE SHARED DECISION-MAKING Aged Out No longer eligible based on patient's age to complete this topic MENINGOCOCCAL GROUPS A/C/Y/W VACCINE Aged Out No longer eligible b ased on patient's age to complete this topic Insurance [facility] SELF PAY NO INSURANCE Member Subscriber Plan / Payer (Ef fective for All Dates) Name:Leticia Olivares Member ID:Not on file Relation to Subscriber:Not on file Name:LETICIA OLIVARES Subscriber ID:Not on file (Home) Address: [address] [place] [id number] Payer ID:Not on file Group ID:Not on file Type:Self Pay Address: [facility] Member Subscriber Plan / Payer (Ef fective for All Dates) Name:Leticia Olivares [place] Relation to Subscriber:Self Name:Leticia Olivares Payer ID:[id number] (NAIC) Type:PPO Address: [address] [place] [id number] Care Teams Patient Placement Coordinator Relationship Specialty Start Date End Date Gómez Hampton MD [address] [place] [id number] PCP - General Family Medicine 07/22/18
--- OUTSIDE RECORDS SUMMARY | 2025-01-29 15:43 | XMS_ITS | Clinical Summary ---
Author Organization [facility] [place] Address [address] [place] [address] Care Team Providers Care Etiquette Coach Name Role Phone Gómez Hampton MD Primary Care Provider [phone] Allergies Active Allergy Reactions Criticality Noted Date [...] 7:39 AM CDT Height 170.2 cm (5' 7) 11/16/2022 7:39 AM CDT Body Mass Index 50.12 11/16/2022 7:39 AM CDT Plan of Treatment Health Maintenance Due Date Last Done Comments HEPATITIS B VACCINES (1 of 3 - 19+ 3-dose series) 12/20/1999 HPV/Cotest (21-29) 2001 HPV VACCINES (1 - 3-dose SCD M series) 12/20/2007 HPV/Cotest (30-65) 2010 CERVICAL CANCER SCREENING 10/30/2020 PAP SMEAR 10/30/2020 10/30/2017 (Prev iously completed) BREAST CANCER SCREENING 12/01/2022 12/02/19 22, 12/01/2021, 11/11/2017, Additional history exists INFLUENZA VACCINE (#1) 2024 2, 12/28/2019, 01/06/2018, Additional history exists Pre-Diabetes and Diabetes Screening 11/16/2025 11/16/2022, 09/01/2021 DTAP/TDAP/TD VACCINES (3 - T d or Tdap) 02/20/2028 02/19/2018, 01/19/2013 Procedures Procedure Name Priority Date/Time Associated Diagnosis Comments HEMOGLOBIN A1C Routine 11/16/2022 7:24 AM CDT Abnormal glucose from Last 3 Months or Most Recently Relevant to Health Maintenance Results * HEMOGLOBIN A1C (11/16/2022 7:24 AM CDT) HEMOGLOBIN A1C 5.2 <5.7 % of total Hgb [facility] Comment: For the purpose of screening for the presence of diabetes: <5.7% Consistent with the absence of diabetes 5.7-6.4% Consistent with increased risk for diabetes (prediabetes) > or =6.5% Consistent with diabetes This assay result is consistent with a decreased risk of diabetes. Currently, no consensus exists regarding use of hemoglobin A1c for diagnosis of diabetes in children. According to [place] Diabetes Association (ADA) guidelines, hemoglobin A1c <7.0% represents optimal control in non- diabetic patients. Different metrics may apply to specific patient populations. Standards of Medical Care in Diabetes(ADA). ESTIMATED AVERAGE GLUCOSE (MG/DL) 103 mg/dL [facility] ESTIMATED AVERAGE GLUCOSE (MMOL/L) 5.7 mmol/L [facility] Comment: Test Performed at: [facility] [id number] [address] [id number] Ludwig Cotter MD Blood 11/16/2022 7:24 AM CDT 11/20/2022 2:54 PM CDT us Maribeth Devries ANP CHEMISTRY ORDERABLES Final R esult [facility] [phone] [facility] [address] [place] [address] from Last 3 Months or Most Recently Relevant to Health Maintenance Insurance * Guarantor: [employer] (C) Account Type Relation to Patient Date of Phone Billing Address Corporate Employer ATTN: MANUEL MARINELLI [address] OPEN ACCESS * Guarantor: [employer] Account Type Relation to Patient Date of Phone Billing Address Corporate Employer ATTN: MANUEL MARINELL[employer] [address] [address] Care Teams Etiquette Coach Relationship Specialty Start Date End Date Gómez Hampton MD [address] [place] [address] PCP - General Family Practice 11/20/22
--- OUTSIDE RECORDS SUMMARY | 2025-01-29 15:43 | XMS_ITS | Encounter Summary ---
Author Organization [facility] Address [address] [place] [address] Phone Care Team Providers Care Broker Name Role Phone Jean Carlos Helms MD Primary Care Provider [phone] No, Physician Primary Care Provider [phone] Jean Carlos Helms MD Unavailable [phone] Edita Forbes MD Unavailable [phone] Jean Carlos Helms MD Primary Care Provider [phone] Miscellaneous, Not In File Primary Care Provider Unavailable Miscellaneous, Not In File Primary Care Provider Unavailable Gómez Hampton MD Primary Care Provider Tracy Marino MD PhD Unavailable [phone] Unknown, Notinfile Primary Care Provider Unavail able Caitlin Mcclain NP Primary Care Provider [phone] Encounter Details Date Type Department Care Team (Late st Contact Info) Description 07/24/2017 Orders Only [facility] ProviderNeil MD [facility] [place] [place] [address] Social History Tobacco Use Types Packs/Day Years Used Date Smoking Tobacco: Never Assessed Comments Unknown Sex and Gender Information Value Date Recorded Sex Assigned at Not on file Legal Sex Female 7:51 PM STRANDING SUPERVISOR Gender Identity Not on file Sexual Orientation [...] AM CDT Ordered by an unspecified provider. us Historical Provider LAB BLOOD ORDERABLES Tete l Result documented in this encounter Visit Diagnoses Not on filedocumented in this encounter Care Teams Broker Relationship Specialty Start Date End Date Jean Carlos Helms MD [address] [place] [address] PCP - General 05/19/16 11/10/17 No, Physician PCP - General 11/11/17 11/28/17 Jean Carlos Helms MD [address] [place] [address] PCP - General 11/29/17 11/20/18 Miscellaneous, Not In File PCP - General 11/24/18 11/26/18 Miscellaneous, Not In File PCP - General 11/21/18 11/23/18 Gómez Hampton MD PCP - General Family Medicine 11/27/18 06/07/20 Unknown, Notinfile PCP - General 06/08/20 01/09/24 Caitlin Mcclain SOUND RECORDIST [address] [place] [address] PCP - General Nurse Practitioner 01/10/24 Jean Carlos Helms MD [address] [place] [address] 11/11/17 Edita Forbes MD [address] [address] Referring Physician Reproductive Endocrinology and Infertility 11/11/17 ArmandoTracy MD PhD Referring Physician Obstetrics and Gynecology 07/24/17 documented as of this encounter
--- OUTSIDE RECORDS SUMMARY | 2025-01-29 15:43 | XMS_ITS | Clinical Summary ---
Author Organization [facility] Address [facility] [place] [address] Care Team Providers Care M48 M60 Armor Crewman Name Role Phone Unavailable Primary Care Provider Unavailabl e Social History Tobacco Use Types Packs/Day Years Used Date Smoking Tobacco: Never Assessed Comments Unknown Sex and Gender Information Value Date Recorded Sex Assigned at Not on file Legal Sex Female 8:54 PM DIRECTOR OF BUSINESS SYSTEMS Gender Identity Not on file Sexual Orientation Not on file Plan of Treatment Health Maintenance Due Date Last Done Comments Annual Physical 12/20/1983 Hepatitis C 1998 Hepatitis B Vaccines (1 of 3 - 19+ 3-dose series) 12/20/1999 HPV Vaccines (1 - 3-dose SCDM series) 12/20/2007 Cervical Cancer Screening Pap with HPV Testing (Age 30 to 64) Every 5 Years 2010 Mammogram Screening 12/02/2023 12/01/2021, 11/11/2017, 11/05/2017 COVID-19 Vaccine ( season) 2024 Influenza Adult (#1) 2024 01/30/2022, 12/28/2019, 01/06/2018, Additional history exists Cervical Cancer Screening Pap Smear (Age 30 to 64) Every 3 Years 01/26/2027 01/27/2024 Cervical Cancer Screening with HPV 01/26/2027 DTaP, Tdap and Td Vaccines (3 - Td or Tdap) 02/20/2028 02/19/2018, 01/19/2013 Hepatitis A Vaccines Aged Out No long er eligible based on patient's age to complete this topic Meningococcal B Vaccine Aged Out No l onger eligible based on patient's age to complete this topic Meningococcal Vaccine Aged Out No lefty javi eligible based on patient's age to complete this topic Pneumococcal Vaccine: Pediatrics (0 to 5 Years) and At-Risk Patients (6 to 49 Years) Aged Out No longer eligible based on patient's age to complete this topic RSV Immunizations Under 20 Months Aged Out No longer eligible based on patient's age to complete this topic
--- OUTSIDE RECORDS SUMMARY | 2025-01-29 15:44 | XMS_ITS | Clinical Summary ---
Author Organization [facility] Address [address] [place] [address] Care Team Providers Care Customs Opener Verifier Packer Name Role Phone Jean Carlos Helms MD Unavailable [phone] Edita Forbes MD Unavailable [phone] [facility], Tracy Meier MD PhD Unavailable [phone] Caitlin Mcclain NP Primary Care Provider [phone] Allergies Active Allergy Reactions Criticality Noted Date [...] total) by mouth nightly 3 Active rizatriptan SUPERVISOR ELECTROLYTIC TINNING (MAXALT-SUPERVISOR ELECTROLYTIC TINNING) 10 mg disintegrating tablet TAKE 1 TAB AT ONSET OF HEADACHE IF NO RELIEF MAY REPEAT 1 TAB AFTER AT LEAST 2 HRS MAX = 3 TABS/24HR 3 Active ARIPiprazole (ABILIFY) 5 mg tablet Take 1 tablet (5 mg total) by mouth daily 3 Active Nidia 0.25-35 mg-mcg per tabletIndications:P MS2-related Kellogg syndrome (HNPCC4) TAKE 1 TABLET BY MOUTH EVERY DAY 84 tablet 4 4 Active propranoloL (INDERAL) 20 mg tablet Take 1 tablet (20 mg total) by mouth daily 4 Active colestipoL (COLESTID) 1 gram tablet TAKE 1 TABLET BY MOUTH TWICE A DAY FOR 1 MONTH 5 Active Active Problems Problem Noted Date Diagnosed Date 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 Will refer for mammogram and risk assessment with our breast surgeons. Obesity (BMI 35.0-39.9 without comorbidity) 05/30 Assessment & Plan (09/04/2017 2:27 PM CDT): Using an jaya called [employer] Run Couch to 5K. 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 Discussed [employer] jaya as well. Has a [employer] watch. Discussed importance lifestyle for decreasing cancer [...] Conv) COPD (chronic obstructive pu lmonary disease) Colon polyp Pancreatitis Kidney stone Cholelithiasis Asthma Seizures (HCC) one isolated [place] after head injury in highschool Chronic sinus [...] on file Legal Sex Female 7:51 PM NURSE ASSESSOR Gender Identity Not on file Sexual Orientation [...] 1:03 PM CDT Height 170.2 cm (5' 7.01) 04/18/2023 1 0:32 AM NURSE ASSESSOR Body Mass Index 49.86 04/18/2023 10:32 AM NURSE ASSESSOR Plan of Treatment Scheduled Procedures Name Priority Associated Diagnoses Date/Ti me COLONOSCOPY Open Access Kellogg syndrome Health care maintenance Health Maintenance Due Date Last Done Comments Depression Screening 1980 Hepatitis C Screening 1980 Varicella Vaccines (1 of 2 - 13+ 2-dose series) 1993 Hepatitis B Screening 1998 Regular Well Visit/Exam 18-64 1998 Pneumococcal vaccine <65 (1 of 2 - PCV) 12/20/1999 HPV Vaccines (1 - 3-dose SCD M series) 12/20/2007 Breast Cancer Screening-Mammogram 12/01/2022 12/01/2021, 12/01/2021, 11/11/2017, Additional history exists Influenza Vaccine (#1) 2024 , 12/28/2019, 01/06/2018, Additional history exists Cervical Cancer Screening 01/26/2025 01/27/2024, DTaP/Tdap/Td Vaccine (3 - Td or Tdap) 02/20/2028 02/19/2018, 01/19/2013 Procedures Procedure [...] component) (01/27/2024 4:47 PM CDT) Pathologist [facility] HPV HR 16 Not Detected Not Detected [facility] HPV HR 18 Not Detected Not Detected [facility] HPV HR Non 16/18 Not Detected Not Detected [facility] Comment: Interpretive Data Nucleic acid amplification for [...] this test have been verified by the [facility] Molecular Infectious Disease laboratory. Correlate with separately reported cytology results, as applicable. Interpretive data last revised 22 Endocervical 01/27/2024 4:47 PM CDT 01/28/2024 3:11 PM CDT Narrative [facility] - 01/29/2024 4:02 AM CDT Clinical history and diagnosis->Normal pap history Testing type->Screening Last menstrual period (date if known)->01/13/24 us Stephy Manning NP LAB BODY FLUIDS AND STOOLS O RDERABLES Final Result [facility] [place] [address] [facility] * SCREENING MAMMOGRAM BILATERAL W YONY (12/01/2021 1:31 PM CDT) Anatomical Region Laterality Modality Breast Bilateral Mammography Narrative 12/05/2021 1:04 PM CDT Mammogram Technique: Bilateral Digital Breast Tomosynthesis, Bilateral C-view 2D Screening mammogram. Views obtained: bilateral craniocaudal and bilateral mediolateral oblique. Computer Aided Detection was performed. Mammogram Findings: The present examination has been compared to prior imaging studies performed at [facility] on 11/05/2017 and 11/11/2017. [...] compared to prior imaging studies performed at [facility] on 11/05/2017 and 11/11/2017. There are scattered areas of fibroglandular density. There is no suspicious abnormality in either breast. Impression: There is no mammographic evidence of malignancy. Annual screening mammography is recommended. OVERALL FINAL ASSESSMENT: BI-RADS CATEGORY 1: Negative. us Candido Arreguin MD IMG MAMMO PROCEDURES Fin al Result from Last 3 Months or Most Recently Relevant to Health Maintenance Insurance [facility] Address: [address] [place] [address] [facility] Address: [address] [place] [address] Advance Directives For more information, please contact: [phone] * Full Code (Latest Code Status on File) Date Activated Date Inactivated Comments 03/04/2020 8:32 AM 03/04/2020 3:21 PM * Full Code Date Activated Date Inactivated Comments 11/29/2017 8:28 AM 11/29/2017 12:44 PM Care Teams Customs Opener Verifier Packer Relationship Specialty Start Date End Date Caitlin Mcclain NP [address] [place] [address] PCP - General Nurse Practitioner 01/10/24 Jean Carlos Helms MD [address] [place] [address] 11/11/17 Edita Forbes MD [address] [address] Referring Physician Reproductive Endocrinology and Infertility 11/11/17 Tracy Marino MD PhD [address] [address] Referring Physician Obstetrics and Gynecology 07/24/17
--- NOTE | 2025-01-29 15:48 | ED.FALL ---
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 Patient slipped on gas subsequently fell and straddled her bilateral lower extremities. Subsequently she was able to stand up and bear weight. She presents with --right groin pain. --left knee pain No other injuries noted. Onset (ago): hour(s) (1 hour ago) Fall from: standing Fall witnessed: yes, by bystander Place fall occurred: street Loss of consciousness: none Prolonged down time: no Symptoms prior to fall: none Related Data Home Medications ?Medication ?Instructions ?Recorded ?Confirmed ?Last Taken ?Type norgestimate 0.25 mg-ethinyl 1 tablet PO DAILY 01/31/19 09/01/24 08/13/24 History estradiol 0.035 mg tablet (Sprintec (28)) aripiprazole 5 mg tablet 5 mg PO DAILY 03/02/21 09/01/24 08/13/24 History venlafaxine 225 mg tablet,extended 225 mg PO QAM 03/02/21 09/01/24 08/13/24 History release 24 hr bupropion HCl 150 mg 24 hr tablet, 150 mg PO DAILY 11/15/21 09/01/24 08/13/24 History extended release zljqalzelrl-nyj-qeudwaige-hrb tablet PO 12/16/23 09/01/24 Unknown History 149-hyalur 500 mg-500 mg-66.7 mg tablet (Kzflxhzxpis-Zunslwkscqn-FAM (with antiox)) psyllium husk 0.4 gram capsule 0.4 g PO DAILY 04/02/24 09/01/24 08/12/24 History (Daily Fiber) ubidecarenone-omega 3-vit E 25 1 cap PO DAILY 07/20/24 09/01/24 08/13/24 History mg-150 (90-60) mg-200 unit capsule (Co T-30-Cyaqiic E-Fish Oil) Allergies Allergy/AdvReac Type Severity Reaction Status Date / Time divalproex sodium (From Allergy Intermediate Hives Verified 01/29/25 15:47 Depakote) nickel Allergy Intermediate Hives Verified 01/29/25 15:47 phenytoin (From Dilantin) Allergy Intermediate Hives Verified 01/29/25 15:47 tetrakis copper Allergy Intermediate Hives Verified 01/29/25 15:47 tetrafluoroborate Review of Systems Review of Systems: All systems reviewed & are unremarkable except as noted in HPI and below Constitutional: Constitutional: Reports as per HPI and Reports no additional constitutional complaints Eyes: Eyes: Reports as per HPI and Reports no additional eye complaints ENT: Reports system reviewed and no additional complaints, except as documented and Reports as per HPI Cardiovascular: Cardiovascular: Reports as per HPI and Reports no additional cardiovascular complaints Respiratory: Respiratory: Reports as per HPI and Reports no additional respiratory complaints Gastrointestinal: Gastrointestinal: Reports as per HPI and Reports no additional gastrointestinal complaints Genitourinary: Genitourinary: Reports no additional female genitourinary complaints and Reports as per HPI Musculoskeletal: Musculoskeletal: Reports no additional musculoskeletal complaints and Reports as per HPI Comments: Right groin pain Left knee pain Integumentary/Breasts: Skin/Breast: Reports system reviewed and no additional complaints, except as docu and Reports as per HPI Neurologic: Reports system reviewed and no additional complaints, except as documented and Reports as per HPI Psychiatric: Psychiatric: Reports no additional psychiatric complaints and Reports as per HPI Endocrine: Endocrine: Reports no additional endocrine complaints and Reports as per HPI Hematologic/Lymphatic: Hematologic/Lymphatic: Reports no additional hematologic/lymphatic complaints and Reports as per HPI Allergic/Immunologic: Allergic/Immunologic: Reports no additional allergic/immunologic complaints and Reports as per HPI PMFSH Past Medical History Medical History Folate deficiency Vitamin D deficiency Family history of colon cancer Personal history of colon polyps, unspecified Tobacco use Steatorrhea Bloating Kellogg syndrome Tendinitis of right rotator cuff Impingement of right shoulder Tobacco dependence Nausea Nasal congestion Maxillary sinusitis, acute Cough Depression Diarrhea CONOR (generalized anxiety disorder) Migraine Asthma (07/01/15) GERD (gastroesophageal reflux disease) (07/01/15) Kidney calculi Surgical History Surgical History [place] teeth extracted H/O sinus surgery History of cholecystectomy (~12/2016) Family History Family History Father Depression Grandparent Asthma Lung cancer Grandparent Carcinoma of colon Heart disease Unknown Diabetes mellitus Kellogg syndrome Social History Social History Years smoked: 20 Smoking status: Current every day smoker Tobacco type: cigars Second hand tobacco smoke exposure: No Alcohol intake: current Drinks per week: 2 Alcohol use details: social Substance use: never Substance use type: does not use Do You Feel Safe in your Home?: Yes Lack of Transportation: No Lack of Food: Never True Current Housing: I Have Housing Concerned About Future Housing: No Difficulty Paying Gas/Electric Bills: No Difficulty Paying for Meds: No Currently Unemployed: No Education: Associate Degree Difficulty w/ Childcare or Family Care: No Living arrangements: with family Occupation/Education: occupation 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 Const: Nutritional Appearance: well nourished Orientation/consciousness: patient oriented x3 Limitations: no limitations HENMT: Head: normal to inspection Ears: external ears normal Face/Nose/Sinus: Normal external nose present Face and sinus: normal facial exam Mouth: Yes Normal oral and palatal mucosa present Throat: posterior oropharynx normal Eyes: Conjunctivae: conjunctivae normal Pupils: Equal, round and reactive pupils present EOM: EOMs intact bilaterally Direct Ophthalmoscopy: no photophobia Neck: Neck: normal visual inspection, no lymphadenopathy and no meningeal signs Chest: Chest palpation & inspection: normal inspection of the chest Resp: Effort & Inspection: normal respiratory effort Auscultation: clear to auscultation bilaterally Cardio: Rate: regular rate Rhythm: regular rhythm GI: Auscultation: normal bowel sounds Other: No tenderness/rigidity/rebound. : General: Yes no CVA tenderness Back/Spine/Pelvis: Back: no CVA tenderness Skin: General skin exam: normal color Rashes: no rashes Neuro: General: patient oriented x3, moves all extremities, no meningeal signs, no focal motor deficits and CN's II-XI intact bilaterally Cranial nerves: Yes Nystagmus not present Speech: normal speech Extrem: General: normal to inspection and no clubbing, cyanosis or edema Other: Left knee--no tenderness. Decreased range of motion. Negative stress test. Pelvis--no tenderness on palpation of the pelvis. Psych: Mental Status: mental status grossly normal Affect: normal affect Attitude: cooperative Course Course Emergency Course: Accidental fall Right groin pain--patient is able to move her hips without any restriction. Tenderness over the right inguinal region. X-ray of the pelvis did not show any acute findings. Left knee pain--patient is able to move her knee. X-ray did not show any acute findings Vital Signs Vital signs: Vital Signs Temperature 36.4 C 01/29/25 15:35 Pulse Rate 88 01/29/25 15:35 Respiratory Rate 16 01/29/25 15:35 Blood Pressure 128/89 01/29/25 15:35 Pulse Oximetry 98 01/29/25 15:35 Oxygen Delivery Room Air 01/29/25 15:35 Temperature 36.4 C 01/29/25 15:35 Pulse Rate 88 01/29/25 15:35 Respiratory Rate 16 01/29/25 15:35 Blood Pressure 128/89 01/29/25 15:35 Pulse Oximetry 98 01/29/25 15:35 Oxygen Delivery Room Air 01/29/25 15:35 MDM - Fall MDM Narrative Medical decision making narrative: Accidental Fall Hip pain Left knee pain Differential Diagnosis Differential diagnosis: Likely other (Fracture/dislocation of the left knee) Discharge Plan Discharge Clinical Impression: Accidental fall, Acute knee pain, Acute hip pain Patient Disposition: Home Condition: Stable Instructions: Antibiotic Form, Knee Pain (ED), Fall Prevention (ED), Hip Pain (ED) Patient Language: Thai Prescriptions: New diclofenac sodium 50 mg tablet,delayed release (DR/EC) 50 mg PO TID PRN (Reason: pain) Qty: 20 0RF No Action norgestimate-ethinyl estradiol [Sprintec (28)] 0.25-35 mg-mcg Tablet 1 tablet PO DAILY psyllium husk [Daily Fiber] 0.4 gram capsule 0.4 g PO DAILY Co F-51-Zwawyis E-Fish Oil 25-150-200 mg-mg-unit capsule 1 cap PO DAILY venlafaxine 225 mg tablet extended release 24hr 225 mg PO QAM aripiprazole 5 mg tablet 5 mg PO DAILY bupropion HCl 150 mg tablet extended release 24 hr 150 mg PO DAILY lorazepam 1 mg tablet 1 mg PO DAILY PRN (Reason: anxiety) Qty: 3 0RF trazodone 100 mg tablet 50 mg .ROUTE .COMPLEX Qty: 30 2RF Rx Instructions: 50 mg; xwlspdel-mze-tfyka-uja728-virs [Okpakz-Sbewy-GOD (with antiox)] 500-500-66.7 mg tablet PO colestipol 1 gram tablet See Rx Instructions .ROUTE .COMPLEX Qty: 180 3RF Dose Instruction: TAKE 1 TABLET BY MOUTH TWICE A DAY FOR 1 MONTH Rx Instructions: TAKE 1 TABLET BY MOUTH TWICE A DAY FOR 1 MONTH azelastine 137 mcg (0.1 %) spray,non-aerosol 2 spray intranasal Q12H Qty: 30 0RF Rx Instructions: administer into each nostril propranolol 20 mg tablet See Rx Instructions .ROUTE .COMPLEX Qty: 90 0RF Dose Instruction: TAKE 1 TABLET BY MOUTH EVERY DAY Rx Instructions: TAKE 1 TABLET BY MOUTH EVERY DAY Follow-up/Referrals: Caitlin Mcclain CHIEF ENGINEER RESEARCH [Primary Care Provider, Family Practice] Stand Alone Forms: Work/School Release IP Time of Disposition: 16:41
--- OUTSIDE RECORDS SUMMARY | 2025-01-29 16:27 | XMS_ITS | Encounter Summary ---
Author Organization [facility] Address [address] [place] [address] Phone Care Team Providers Care Mobile Architect Name Role Phone Jean Carlos Helms MD Primary Care Provider [phone] No, Physician Primary Care Provider [phone] Jean Carlos Helms MD Unavailable [phone] Edita Forbes MD Unavailable Jean Carlos Helms MD Primary Care Provider [phone] Miscellaneous, Not In File Primary Care Provider Unavailable Miscellaneous, Not In File Primary Care Provider Unavailable Gómez Hampton MD Primary Care Provider [phone] Tracy Marino MD PhD Unavailable [phone] Unknown, Notinfile Primary Care Provider Unavail able Caitlin Mcclain NP Primary Care Provider [phone] Encounter Details Date Type Department Care Team (Late st Contact Info) Description 07/24/2017 Orders Only [facility] ProviderNeil MD [facility] [place] [address] Social History Tobacco Use Types Packs/Day Years Used Date Smoking Tobacco: Never Assessed Comments Unknown Sex and Gender Information Value Date Recorded Sex Assigned at Not on file 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 Gender Identity Not on file Sexual [...] on filedocumented in this encounter Care Teams Mobile Architect Relationship Specialty Start Date End Date Jean Carlos Helms MD [address] [place] [address] PCP - General 05/19/16 11/10/17 No, Physician PCP - General 11/11/17 11/28/17 Jean Carlos Helms MD [address] [place] [address] PCP - General 11/29/17 11/20/18 Miscellaneous, Not In File PCP - General 11/24/18 11/26/18 Miscellaneous, Not In File PCP - General 11/21/18 11/23/18 Gómez Hampton MD PCP - General Family Medicine 11/27/18 06/07/20 Unknown, Notinfile PCP - General 06/08/20 01/09/24 Caitlin Mcclain STORY READER [address] [place] [address] PCP - General Nurse Practitioner 01/10/24 Jean Carlos Helms MD [address] [place] [address] 11/11/17 Edita Forbes MD [address] [address] Referring Physician Reproductive Endocrinology and Infertility 11/11/17 ArmandoTracy MD PhD Referring Physician Obstetrics and Gynecology 07/24/17 documented as of this encounter
--- OUTSIDE RECORDS SUMMARY | 2025-01-29 16:27 | XMS_ITS | Clinical Summary ---
Author Organization [facility] Address [address] [place] [address] Care Team Providers Care Channel Sales Director Name Role Phone Jean Carlos Helms MD Unavailable [phone] Edita Forbes MD Unavailable [phone] [facility], Tracy Meier MD PhD Unavailable [phone] Caitlin Mcclain NP Primary Care Provider [phone] Allergies Active Allergy Reactions Criticality Noted Date [...] total) by mouth nightly 3 Active rizatriptan BUNDLE TIER AND LABELER (MAXALT-BUNDLE TIER AND LABELER) 10 mg disintegrating tablet TAKE 1 TAB [...] (12/16/2019): Added automatically from request for surgery [id number] Current moderate episode of major depressive disorder without prior episode 06/19/2018 Mild intermittent asthma without complication Encounter for screening colonoscopy 09/25/2017 Overview (09/25/2017): Added automatically from request for surgery [id number] Tobacco use 09/25/2017 PMS2-related Kellogg syndrome (HNPCC4) [...] 2:27 PM CDT): Using an jaya called [employer] Couch to 5K. Will get back to personal caregiver at gym. Discussed [employer] jaya as well. Has a [employer] watch. 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 Gender Identity Not on file Sexual Orientation [...] cm (5' 7.01) 04/18/2023 1 0:32 AM BRANCH GENERAL MANAGER Body Mass Index 49.86 04/18/2023 10:32 AM BRANCH GENERAL MANAGER Plan of Treatment Scheduled Procedures Name Priority [...] (Molecular component) (01/27/2024 4:47 PM CDT) Pathologist [facility] HPV HR 16 Not Detected Not Detected [facility] HPV HR 18 Not Detected Not Detected [facility] HPV HR Non 16/18 Not Detected Not Detected [facility] Comment: Interpretive Data Nucleic acid amplification [...] PM CDT 01/28/2024 3:11 PM CDT Narrative [facility] - 01/29/2024 4:02 AM CDT Clinical history and diagnosis->Normal pap history Testing type->Screening Last menstrual period (date if known)->01/13/24 us Stephy Manning NP LAB BODY FLUIDS AND STOOLS O RDERABLES Final Result [facility] [place] [address] [facility] * SCREENING MAMMOGRAM BILATERAL W YONY (12/01/2021 1:31 PM CDT) Anatomical Region Laterality Modality Breast Bilateral Mammography Narrative 12/05/2021 1:04 PM CDT Mammogram Technique: Bilateral Digital Breast Tomosynthesis, Bilateral C-view 2D Screening mammogram. Views obtained: bilateral craniocaudal and bilateral mediolateral oblique. Computer Aided Detection was performed. Mammogram Findings: The present examination has been compared to prior imaging studies performed at [facility] on 11/05/2017 and 11/11/2017. There are scattered [...] compared to prior imaging studies performed at [facility] on 11/05/2017 and 11/11/2017. There are scattered areas of fibroglandular density. There is no suspicious abnormality in either breast. Impression: There is no mammographic evidence of malignancy. Annual screening mammography is recommended. OVERALL FINAL ASSESSMENT: BI-RADS CATEGORY 1: Negative. us Candido Arreguin MD IMG MAMMO PROCEDURES Fin al Result from Last 3 Months or Most Recently Relevant to Health Maintenance Insurance [facility] H[facility]PPO Address: [address] [place] [address] [facility] Address: [address] [place] [address] Advance Directives For more information, please contact: [phone] * Full Code (Latest Code Status on File) Date Activated Date Inactivated Comments 03/04/2020 8:32 AM 03/04/2020 3:21 PM * Full Code Date Activated Date Inactivated Comments 11/29/2017 8:28 AM 11/29/2017 12:44 PM Care Teams Channel Sales Director Relationship Specialty Start Date End Date Caitlin Mcclain NP [address] [place] [address] PCP - General Nurse Practitioner 01/10/24 Jean Carlos Helms MD [address] [place] [address] 11/11/17 Edita Forbes MD [address] [address] Referring Physician Reproductive Endocrinology and Infertility 11/11/17 Tracy Marino MD PhD [address] [address] Referring Physician Obstetrics and Gynecology 07/24/17
--- OUTSIDE RECORDS SUMMARY | 2025-01-29 16:27 | XMS_ITS | Clinical Summary ---
Author Organization [facility] Address [address] [facility] [place] [address] Care Team Providers Care Jewelry Manager Name Role Phone Gómez Hampton MD Primary Care Provider [phone] Source Comments [facility],non-owned Affiliates and Associated Physician Practices is amultiple site organization consisting of ambulatory clinics and hospital sitesin [place], [place], [place] and [place]. This disclosure is being madepursuant to the Care Everywhere program and may not contain all information available regarding this patient. Last updated 17.[facility] Allergies Active Allergy Reactions Criticality Noted Date [...] fluticasone propionate (FLONASE) 50 MCG/ACT nasal spray [place] 2 sprays into each nostril once daily [...] patient's age to complete this topic Insurance [facility] SELF PAY NO INSURANCE Member Subscriber Plan / Payer (Ef fective for All Dates) Name:Leticia Olivares Member ID:Not on file Relation to Subscriber:Not on file Name:LETICIA OLIVARES Subscriber ID:Not on file (Home) Address: [address] [place] [id number] Payer ID:Not on file Group ID:Not on file Type:Self Pay Address: [facility] Member Subscriber Plan / Payer (Ef fective for All Dates) Name:Leticia Olivares [place] Relation to Subscriber:Self Name:Leticia Olivares Payer ID:[id number] (NAIC) Type:PPO Address: [address] [place] [phone] Care Teams Jewelry Manager Relationship Specialty Start Date End Date Gómez Hampton MD [address] [place] [address] PCP - General Family Medicine 07/22/18
--- OUTSIDE RECORDS SUMMARY | 2025-01-29 16:27 | XMS_ITS | Clinical Summary ---
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
--- OUTSIDE RECORDS SUMMARY | 2025-01-29 16:27 | XMS_ITS | Clinical Summary ---
Author Organization [facility] Address [address] [place] [address] Care Team Providers Care Art Gilder Name Role Phone Gómez Hampton MD Primary Care Provider Allergies Active Allergy Reactions Criticality Noted Date [...] t ied to Kellogg Syndrome Depression Mother Gabrieal Hypertension Mother Gabriela Other Mother Gabriela Endrometriosis [...] 5.2 <5.7 % of total Hgb [facility] Comment: For the purpose of screening for the presence of diabetes: <5.7% Consistent with the absence of diabetes 5.7-6.4% Consistent with increased risk for diabetes (prediabetes) > or =6.5% Consistent with diabetes This assay result is consistent with a decreased risk of diabetes. Currently, no consensus exists regarding use of hemoglobin A1c for diagnosis of diabetes in children. According to [place] Diabetes Association (ADA) guidelines, hemoglobin A1c <7.0% represents optimal control in non- diabetic patients. Different metrics may apply to specific patient populations. Standards of Medical Care in Diabetes(ADA). ESTIMATED AVERAGE GLUCOSE (MG/DL) 103 mg/dL [facility] ESTIMATED AVERAGE GLUCOSE (MMOL/L) 5.7 mmol/L [facility] Comment: Test Performed at: [facility] [address] [address] [id number] Ludwig Cotter MD Blood 11/16/2022 7:24 AM CDT 11/20/2022 2:54 PM CDT us Maribeth Devries ANP CHEMISTRY ORDERABLES Final R esult [facility] [phone] [facility] [address] [place] [address] from Last 3 Months or Most Recently Relevant to Health Maintenance Insurance * Guarantor: [employer]) Account Type Relation to Patient Date of Phone Billing Address Corporate Employer ATTN: MANUEL MARINELLI [address] OPEN ACCESS * Guarantor: [employer] Account Type Relation to Patient Date of Phone Billing Address Corporate Employer ATTN: MANUEL MARINELLI [address] [address] Care Teams Art Gilder Relationship Specialty Start Date End Date Gómez Hampton MD [address] [place] [address] PCP - General Family Practice 11/20/22
[2025-01-29 16:45] VITALS: BP 125/87; PULSE 85; RESP 16; TEMP 36.4; O2SAT 99
== END 2025-01-29 16:45 | disposition home or self-care (01) ==
PROVIDERS: Emergency Provider Internal Medicine Critical Care Medicine; PCP Nurse Practitioner Family
DX: M25.562 Pain in left knee (principal); M25.551 Pain in right hip; F17.210 Nicotine dependence, cigarettes, uncomplicated; W01.0XXA Fall on same level from slipping, tripping and stumbling without subsequent striking against object, initial encounter; Y92.524 Gas station as the place of occurrence of the external cause
CPT/HCPCS: 72170; 73562; 96372; 99284

== ENCOUNTER 2025-03-11 13:40 | Outpatient (CLI) | payer SELFPAY ==
--- NOTE | ~2025-03-11 | MR_ITS ---
EXAMINATION: MR knee LT wo con DATE: 03/11/2025 14:25 INDICATION: Left knee pain TECHNIQUE: Magnetic resonance imaging (MRI) of the knee was performed without intravenous contrast. Sequences included axial PD-weighted FS FSE, coronal PD- weighted FSE and PD-weighted FS FSE, sagittal PD-weighted FSE, and sagittal T2- weighted FS FSE. COMPARISON: Plain films from January 29, 2025 FINDINGS: No fracture subluxation or dislocation present. Moderate size joint effusion present. There is mild approximate 7 mm of lateral subluxation of the patella. The medial retinaculum is also poorly seen. See images 7 through 14 of series 200 the axial proton density series. Infiltrative or edematous changes are present extending along the course of the joint capsule anterior and both lateral margins. Moderate scattered areas of cartilaginous thinning consistent with developing osteoarthritic changes. There is also mild displacement of the anterior horn of the medial meniscus with joint space narrowing of the medial compartment. No meniscal tear seen. Mild hyperintense signal present in the distal fibers of the ACL but no retracted or full thickness tear seen. PCL appears normal. Collateral ligaments appear intact. Extra articular soft tissues remarkable for moderately severe edematous appearing changes in the subcutaneous soft tissues. The quadriceps and infrapatellar tendons appear intact. IMPRESSION: 1. Mild lateral subluxation of the patella which can be physiologic, however the medial retinaculum is poorly visualized and with adjacent infiltrative changes findings are suspicious for disruption of the medial patellar retinaculum. 2. 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 3. Signal changes in the distal ACL may represent partial-thickness tear or sprain. Reviewed, dictated and finalized at location A. O GAME ANIMATOR IMPRESSION: 1. Mild lateral subluxation of the patella which can be physiologic, however th e medial retinaculum is poorly visualized and with adjacent infiltrative change s findings are suspicious for disruption of the medial patellar retinaculum. 2. Moderate osteoarthritic degenerative changes most advanced involving the med ial compartment. 3. Signal changes in the distal ACL may represent partial-thickness tear or spr ain.
== END 2025-03-11 13:41 | disposition home or self-care (01) ==
LOC: CHSIMG 13:41
PROVIDERS: PCP Nurse Practitioner Family; Visit Provider Nurse Practitioner Family
DX: M25.562 Pain in left knee (principal); M17.12 Unilateral primary osteoarthritis, left knee
CPT/HCPCS: 73721